=== PATIENT | male | born 1955 | race Caucasian/White ===

== ENCOUNTER 2021-02-21 12:55 | Inpatient (IN) ==
[2021-02-21 14:02] LABS: Basophils # (auto) 0.05 K/uL (0-0.2); Basophils % (auto) 0.5 %; Eosinophils # (auto) 0.15 K/uL (0-0.5); Eosinophils % (auto) 1.6 %; Hematocrit (blood only) 39.1 % (42-52); Hemoglobin 13.3 g/dL (14.0-18.0); Immature Granulocytes # (auto) 0.05 K/uL (0.00-0.02); Immature Granulocytes % (auto) 0.5 %; Lymphocytes # (auto) 1.63 K/uL (1.2-3.4); Lymphocytes % (auto) 16.9 %; Mean Corpuscular Volume 91.1 fL (80-100); Mean Platelet Volume 9.4 fL (7.4-10.4); Monocytes # (auto) 0.78 K/uL (0.11-0.59); Monocytes % (auto) 8.1 %; Neutrophils # (auto) 6.99 K/uL (1.4-6.5); Neutrophils % (auto) 72.4 %; Platelet Count 328 K/uL (130-400); RDW Coefficient of Variation 13.9 % (11.5-14.5); RDW Standard Deviation 45.8 fL (36.4-46.3); Red Blood Count 4.29 M/uL (4.7-6.1); White Blood Count 9.65 K/uL (4.8-10.8)
[2021-02-21 14:26] LABS: Albumin Level 2.4 gm/dl (3.4-5.0); BUN Creatinine Ratio 10.9 (10-20); Calcium 9.1 mg/dl (8.5-10.1); Est GFR (African American) 84.3 ml/min; Est GFR (Non-African American) 72.8 ml/min; Potassium 3.7 mmol/L (3.5-5.1)
[2021-02-21 14:29] LABS: Albumin Globulin Ratio 0.5 (0.9-2); Bilirubin,Total 0.5 mg/dl (0.2-1); Globulin 5.3 gm/dl (2.5-4.0); Total Protein 7.7 gm/dl (6.4-8.2)
--- NOTE | 2021-02-21 15:53 | Ultrasound Report ---
RIGHT LOWER EXTREMITY VENOUS DOPPLER CLINICAL HISTORY: Right lower extremity pain. Evaluate for deep venous thrombus. COMPARISON STUDY: No previous studies for comparison. TECHNIQUE: Sonography of the deep venous system of the right lower extremity was performed. Compress ion and augmentation were evaluated. FINDINGS: Prominent right inguinal lymph nodes measure up to 4.3 x 1.4 x 4.2 cm. The largest node is elongated and contains a fatty hilum. This is benign imaging characteristics. There is stranding with in the right femoral vein. This favors chronic thrombus. Note is also made of deep venous thrombus wi thin the right popliteal, posterior tibial and peroneal veins which is age indeterminate. IMPRESSION: 1. Deep venous thrombus within the right popliteal, posterior tibial and peroneal veins. This thrombu s is age indeterminate. 2. Chronic appearing deep venous thrombus within the right femoral vein. 3. Prominent right groin lymph nodes which are likely benign. ACT 112: Negative or not required by law. Electronically signed by: Ryan Sandoval M.D. 02/21/2021 3:52 PM
[2021-02-21] MEDS ORDERED: SODIUM CHLORIDE 0.9% 1000ML 1,000 ML IV ONE (17:15)
[2021-02-21] MEDS ORDERED: VANCOMYCIN CONSULT ACTIVE PRN ×2 (17:15→22:35)
[2021-02-21] MEDS ORDERED: VANCOMYCIN HCL 2,500 MG in SODIUM CHLORIDE 0.9% 500 ML IV ONE ×2 (17:15→22:45)
[2021-02-21] MEDS ORDERED: cefTRIAXone SODIUM 2,000 MG/70 ML BAG IV STA (17:19)
--- NOTE | 2021-02-21 17:53 | Emergency Department Note ---
History of Present Illness General Chief complaint: Leg Injury/Pain Stated complaint: LEG SWELLING Time Seen by Provider: 02/21/21 14:31 History of Present Illness Maximum Pain Intensity: 0 This patient is a 66-year-old male who presents emergency department with complaints of throbbing pain, redness, swelling in his right leg that started 3 days ago. He denies any injury. The patient notes a history of diabetes. He denies any fever. He has received Tylenol with moderate pain relief. He denies any chest pain or difficulty breathing. No body aches, sweats or chills reported. Home Medications Medication Instructions Recorded Confirmed Type aspirin 325 mg tablet 325 mg PO QAM 12/15/20 02/21/21 History atorvastatin 40 mg tablet 40 mg PO HS 12/15/20 02/21/21 History ciclesonide 160 mcg/actuation 1 puff INHALATION BID 12/15/20 02/21/21 History aerosol inhaler (Alvesco) docusate sodium 100 mg tablet 100 mg PO BID 12/15/20 02/21/21 History glipizide 5 mg tablet 10 mg PO QAM 12/15/20 02/21/21 History guaifenesin 400 mg tablet (Mucosa) 400 mg PO BID 12/15/20 02/21/21 History levalbuterol tartrate 45 2 inh INHALATION QID PRN 12/15/20 02/21/21 History mcg/actuation aerosol inhaler (Xopenex HFA) lisinopril 20 mg tablet 20 mg PO QAM 12/15/20 02/21/21 History metformin 500 mg tablet 500 mg PO QAM 12/15/20 02/21/21 History pantoprazole 40 mg tablet,delayed 40 mg PO QAM 12/15/20 02/21/21 History release pentoxifylline 400 mg 400 mg PO TID 12/15/20 02/21/21 History tablet,extended release triamcinolone acetonide 0.1 % 1 applic TOPICAL BID 12/15/20 02/21/21 History topical cream Allergies Allergy/AdvReac Type Severity Reaction Status Date / Time iodine Allergy Mild hives, sob Verified 12/20/20 10:10 Past Med/Surg History Medical History Acid reflux Asthma Diabetes mellitus, type 2 Hyperlipidemia Hypertension Surgical History History of right inguinal hernia repair History of vein stripping (~1989) right LE Family History Other Family history unknown Social History Smoking Status: Never smoker Preferred Language: Montserratian Statistics Teacher Required: No Beliefs That Will Affect Care: None Current Living Situation: Other Current Living Situation Comment: Incarcerated at [facility] Feels Safe at Home: Yes Assistive Devices: None Review of Systems A total of 10 systems reviewed and were otherwise negative Physical Exam Vital Signs Vital Signs - 24 hr 02/21/21 13:06 02/21/21 16:00 02/21/21 18:00 Temperature 36.8 C Temperature Source Temporal Artery Scan Pulse Rate 90 Pulse Rate [Finger] 75 71 Pulse Rhythm [Finger] Regular Regular Pulse Strength [Finger] Normal Normal Respiratory Rate 16 18 18 Respiratory Effort / Characteristics Non-Labored Non-Labored Respiratory Depth Normal Normal Respiratory Pattern Regular Blood Pressure 145/81 H Blood Pressure [Right Arm] 177/99 H 141/107 H Blood Pressure Mean 102 Blood Pressure Mean [Right Arm] 125 118 Blood Pressure Position [Right Arm] Lying Sitting Pulse Oximetry 97 98 98 Oxygen Delivery Method Room Air Room Air Sepsis Recent Fever Within 48 Hours No Sepsis New/Unexplained Change in Mental Status No Sepsis Action Taken by Nursing No Action Required See below Constitutional WD/WN, vitals as above Eyes EOM intact bilaterally ENMT Oral mucosa slightly dry Neck trachea midline Respiratory normal respiratory effort, lungs clear to auscultation Cardiovascular RRR, no murmur, no edema Gastrointestinal (Abdomen) normal bowel sounds, soft, nontender, no hepatosplenomegaly Musculoskeletal RLE: Significant erythema, warmth and edema noted to the right lower extremity especially distal to the knee. There is some erythematous streaking noted over the medial aspect of the right thigh. DP pulse in the right foot +2. Dorsiflexion and plantar flexion are intact in the right foot. Skin no rashes, warm and dry Several, small, approximately 0.5 cm ulcerations noted to the right lower extremity. Mild oozing of pus noted. Neurologic Alert and oriented x3. No focal motor deficits. Psychiatric Acting appropriately Course Course Patient was seen and examined Vital signs including blood pressure were reviewed medications list was verified with patient Labs were obtained, and a saline lock was established The patient declined pain medication The case was discussed with my supervising physician He was ordered ceftriaxone 2 g IV in addition to fluids I spoke with the hospitalist service, who kindly agreed to evaluate patient for likely inpatient treatment Consultations Consultation #1: Hospitalist service Administered Medications Aspirin (Aspirin 81 Mg Ectab) 81 mg PO QAM [facility] Stop: 03/24/21 08:59 Last Admin: 02/22/21 08:36 Dose: 81 mg Documented by: [id number] Atorvastatin Calcium (Atorvastatin 40 Mg Tab) 40 mg PO HS [facility] Stop: 03/23/21 21:29 Last Admin: 02/21/21 22:35 Dose: 40 mg Documented by: [id number] Docusate Sodium (Docusate Sodium 100 Mg Cap) 100 mg PO BID [facility] Stop: 03/23/21 21:29 Last Admin: 02/22/21 07:57 Dose: 100 mg Documented by: [id number] Admin: 02/21/21 22:35 Dose: 100 mg Documented by: [id number] Enoxaparin Sodium (Enoxaparin Inj 120 Mg/0.8 Ml Syr) 120 mg SQ Q12 [facility] Stop: 03/24/21 07:59 Last Admin: 02/22/21 07:58 Dose: 120 mg Documented by: [id number] Fluticasone Furoate (Fluticasone Furoate 200mcg 14 Puffs/Inhaler) 1 puffs INH DAILY [facility]; Protocol Stop: 03/24/21 08:59 Last Admin: 02/22/21 07:58 Dose: 1 puffs Documented by: [id number] Guaifenesin (Guaifenesin 200 Mg Tab) 400 mg PO BID [facility] Stop: 03/23/21 21:29 Last Admin: 02/22/21 07:57 Dose: 400 mg Documented by: [id number] Admin: 02/21/21 22:35 Dose: 400 mg Documented by: [id number] Vancomycin HCl 1,250 mg/ (Sodium Chloride) 275 mls @ 200 mls/hr IV Q12H [facility] Stop: 03/01/21 07:59 Last Infusion: 02/22/21 09:20 Dose: 0 mls/hr Documented by: [id number] Admin: 02/22/21 07:18 Dose: 200 mls/hr Documented by: [id number] Insulin Aspart (Insulin Aspart Per Unit) 0 units SC ACHS [facility] Stop: 03/24/21 07:29 Last Admin: 02/22/21 09:31 Dose: 5 units Documented by: [id number] Cosigned by: [id number] Insulin Glargine (Insulin Glargine Solostar 100 Units/Ml 3 Ml Pen) 10 units SC BID [facility] Stop: 03/23/21 23:44 Last Admin: 02/22/21 08:05 Dose: 10 units Documented by: [id number] Cosigned by: [id number] Admin: 02/22/21 00:52 Dose: 10 units Documented by: [id number] Cosigned by: [id number] Lisinopril (Lisinopril 20 Mg Tab) 20 mg PO QAM [facility] Stop: 03/24/21 08:59 Last Admin: 02/22/21 07:57 Dose: 20 mg Documented by: [id number] Pantoprazole Sodium (Pantoprazole 40 Mg Tab) 40 mg PO QAM [facility] Stop: 03/24/21 08:59 Last Admin: 02/22/21 07:57 Dose: 40 mg Documented by: [id number] Pentoxifylline (Pentoxifylline 400mg Ext Rel Tab) 400 mg PO TID [facility] Stop: 03/23/21 21:29 Last Admin: 02/22/21 07:56 Dose: 400 mg Documented by: [id number] Admin: 02/21/21 22:35 Dose: 400 mg Documented by: [id number] Discontinued Medications Enoxaparin Sodium (Enoxaparin Inj 120 Mg/0.8 Ml Syr) 120 mg SQ 1915 ONE Stop: 02/21/21 19:16 Last Admin: 02/21/21 19:56 Dose: 120 mg Documented by: [id number] Sodium Chloride (Nss 1000ml) 1,000 mls @ 999 mls/hr IV .Q1H1M ONE Stop: 02/21/21 18:15 Last Infusion: 02/21/21 21:03 Dose: 0 mls/hr Documented by: [id number] Admin: 02/21/21 18:01 Dose: 999 mls/hr Documented by: [id number] Vancomycin HCl 2,500 mg/ (Sodium Chloride) 550 mls @ 200 mls/hr IV NOW ONE Stop: 02/21/21 19:59 Last Admin: 02/21/21 19:00 Dose: Not Given Documented by: [id number] Ceftriaxone Sodium (Rocephin) 2,000 mg in 70 mls @ 140 mls/hr IV NOW STA Stop: 02/21/21 17:48 Last Infusion: 02/21/21 18:32 Dose: 140 mls/hr Documented by: [id number] Admin: 02/21/21 18:02 Dose: 140 mls/hr Documented by: [id number] Vancomycin HCl 2,500 mg/ (Sodium Chloride) 550 mls @ 200 mls/hr IV NOW ONE Stop: 02/22/21 01:29 Last Infusion: 02/22/21 02:02 Dose: 0 mls/hr Documented by: [id number] Admin: 02/21/21 23:07 Dose: 200 mls/hr Documented by: [id number] Insulin Aspart (Insulin Aspart Per Unit) 0 units SC ONE ONE Stop: 02/21/21 23:38 Last Admin: 02/22/21 00:51 Dose: 1 units Documented by: [id number] Cosigned by: [id number] Miscellaneous Information (Consult Pharmacy) 1 ea N/A NOW STA Stop: 02/21/21 18:51 Last Admin: 02/21/21 19:41 Dose: Not Given Documented by: [id number] Medical Decision Making Medical Records Attestation: I reviewed the patient's medical records. Home Medications Current Medication List: was personally reviewed by me Laboratory Data Attestation: I reviewed the patient's lab results. Result diagrams: 02/22/21 06:38 02/22/21 06:38 Lab Results 02/21/21 02/21/21 02/21/21 Range/Units 13:50 13:50 17:39 WBC 9.65 (4.8-10.8) K/uL RBC 4.29 L (4.7-6.1) M/uL Hgb 13.3 L (14.0-18.0) g/dL Hct 39.1 L (42-52) % MCV 91.1 (80-100) fL MCH 31.0 (25-34) pg MCHC 34.0 (32-36) g/dL RDW Std Deviation 45.8 (36.4-46.3) fL RDW Coeff of John 13.9 (11.5-14.5) % Plt Count 328 (130-400) K/uL MPV 9.4 (7.4-10.4) fL Immature Gran % (Auto) 0.5 % Neut % (Auto) 72.4 % Lymph % (Auto) 16.9 % [place] % (Auto) 8.1 % Eos % (Auto) 1.6 % Baso % (Auto) 0.5 % Neut # (Auto) 6.99 H (1.4-6.5) K/uL Lymph # (Auto) 1.63 (1.2-3.4) K/uL [place] # (Auto) 0.78 H (0.11-0.59) K/uL Eos # (Auto) 0.15 (0-0.5) K/uL Baso # (Auto) 0.05 (0-0.2) K/uL Immature Gran # (Auto) 0.05 H (0.00-0.02) K/uL PT (9.0-12.0) Seconds INR (0.9-1.1) APTT (21.0-31.0) Seconds PTT Ratio Sodium 134 L (136-145) mmol/L Potassium 3.7 (3.5-5.1) mmol/L Chloride 102 (98-107) mmol/L Carbon Dioxide 23 (21-32) mmol/L Anion Gap 9.0 (3-11) BUN 12 (7-18) mg/dl Creatinine 1.06 (0.6-1.4) mg/dl Est Cr Clr Drug Dosing 95.0 ml/min Est GFR ( Amer) 84.3 ml/min Est GFR (Non-Af Amer) 72.8 ml/min BUN/Creatinine Ratio 10.9 (10-20) Glucose 254 H (70-99) mg/dl Lactate 1.6 (0.4-2.0) mmol/L Calcium 9.1 (8.5-10.1) mg/dl Total Bilirubin 0.5 (0.2-1) mg/dl AST 130 H (15-37) U/L ALT 10 L (12-78) Alkaline Phosphatase 101 (45-117) U/L Total Protein 7.7 (6.4-8.2) gm/dl Albumin 2.4 L (3.4-5.0) gm/dl Globulin 5.3 H (2.5-4.0) gm/dl Albumin/Globulin Ratio 0.5 L (0.9-2) Urine Color Urine Appearance (Clear) Urine pH (4.5-7.5) Ur Specific [place] (1.000-1.030) Urine Protein (Negative) Urine Glucose (UA) (Negative) Urine Ketones (Negative) Urine Blood (Negative) Urine Nitrite (Negative) Urine Bilirubin (Negative) Urine Urobilinogen (Negative) Ur Leukocyte Esterase (Negative) Urine WBC (Auto) (0-5) /hpf Urine RBC (Auto) (0-4) /hpf U Hyaline Cast (Auto) (0-5) /lpf U Epithel Cells (Auto) (0-5) /lpf Urine Bacteria (Auto) (Negative) SARS-CoV-2, RNA, NAAT (NEGATIVE) 02/21/21 02/21/21 02/21/21 Range/Units 17:39 17:53 17:59 WBC (4.8-10.8) K/uL RBC (4.7-6.1) M/uL Hgb (14.0-18.0) g/dL Hct (42-52) % MCV (80-100) fL MCH (25-34) pg MCHC (32-36) g/dL RDW Std Deviation (36.4-46.3) fL RDW Coeff of John (11.5-14.5) % Plt Count (130-400) K/uL MPV (7.4-10.4) fL Immature Gran % (Auto) % Neut % (Auto) % Lymph % (Auto) % [place] % (Auto) % Eos % (Auto) % Baso % (Auto) % Neut # (Auto) (1.4-6.5) K/uL Lymph # (Auto) (1.2-3.4) K/uL [place] # (Auto) (0.11-0.59) K/uL Eos # (Auto) (0-0.5) K/uL Baso # (Auto) (0-0.2) K/uL Immature Gran # (Auto) (0.00-0.02) K/uL PT 10.2 (9.0-12.0) Seconds INR 1.0 (0.9-1.1) APTT 27.8 (21.0-31.0) Seconds PTT Ratio 1.1 Sodium (136-145) mmol/L Potassium (3.5-5.1) mmol/L Chloride (98-107) mmol/L Carbon Dioxide (21-32) mmol/L Anion Gap (3-11) BUN (7-18) mg/dl Creatinine (0.6-1.4) mg/dl Est Cr Clr Drug Dosing ml/min Est GFR ( Amer) ml/min Est GFR (Non-Af Amer) ml/min BUN/Creatinine Ratio (10-20) Glucose (70-99) mg/dl Lactate (0.4-2.0) mmol/L Calcium (8.5-10.1) mg/dl Total Bilirubin (0.2-1) mg/dl AST (15-37) U/L ALT (12-78) Alkaline Phosphatase (45-117) U/L Total Protein (6.4-8.2) gm/dl Albumin (3.4-5.0) gm/dl Globulin (2.5-4.0) gm/dl Albumin/Globulin Ratio (0.9-2) Urine Color Yellow Urine Appearance Clear (Clear) Urine pH 6.0 (4.5-7.5) Ur Specific [place] 1.021 (1.000-1.030) Urine Protein 1+ H (Negative) Urine Glucose (UA) 3+ H (Negative) Urine Ketones Negative (Negative) Urine Blood 1+ H (Negative) Urine Nitrite Negative (Negative) Urine Bilirubin Negative (Negative) Urine Urobilinogen Negative (Negative) Ur Leukocyte Esterase Negative (Negative) Urine WBC (Auto) 1-5 (0-5) /hpf Urine RBC (Auto) 5-10 H (0-4) /hpf U Hyaline Cast (Auto) 1-5 (0-5) /lpf U Epithel Cells (Auto) 10-20 H (0-5) /lpf Urine Bacteria (Auto) Negative (Negative) SARS-CoV-2, RNA, NAAT NEGATIVE (NEGATIVE) Imaging Data Attestation: I personally reviewed and interpreted this imaging study as follows: Radiologist's Impression: Venous Doppler Study 02/21/21 14:31 RIGHT LOWER EXTREMITY VENOUS DOPPLER CLINICAL HISTORY: Right lower extremity pain. Evaluate for deep venous thrombus. COMPARISON STUDY: No previous studies for comparison. TECHNIQUE: Sonography of the deep venous system of the right lower extremity was performed. Compression and augmentation were evaluated. FINDINGS: Prominent right inguinal lymph nodes measure up to 4.3 x 1.4 x 4.2 cm. The largest node is elongated and contains a fatty hilum. This is benign imaging characteristics. There is stranding within the right femoral vein. This favors chronic thrombus. Note is also made of deep venous thrombus within the right popliteal, posterior tibial and peroneal veins which is age indeterminate. IMPRESSION: 1. Deep venous thrombus within the right popliteal, posterior tibial and peroneal veins. This thrombus is age indeterminate. 2. Chronic appearing deep venous thrombus within the right femoral vein. 3. Prominent right groin lymph nodes which are likely benign. ACT 112: Negative or not required by law. Electronically signed by: Ryan Sandoval M.D. 02/21/2021 3:52 PM Blood Pressure Blood Pressure Findings: Elevated blood pressure Blood Pressure Disposition: further management by hospitalist BAKARI Narrative Differential diagnosis: Cellulitis, DVT, sepsis, osteomyelitis, among others were considered This patient is a 66-year-old incarcerated male who presents the emergency department with complaints of throbbing pain, redness and swelling of the right lower extremity with no known injury. On exam, he was hypertensive. He was afebrile. He was nontoxic in appearance. His right lower extremity is extremely erythematous, warm to touch with several small ulcerations. A work-up was performed. There is no leukocytosis. AST was elevated. Other LFTs were unremarkable. An ultrasound was performed and consistent with a fairly large DVT. The patient's oxygen is stable on room air. I do not suspect PE. In addition, I believe the patient has an overlying cellulitis. I do not feel comfortable sending this patient back to [facility]. He was started on antibiotics, and likely be admitted for further treatment. Impression & Plan DVT (deep venous thrombosis), Cellulitis of right lower extremity, Diabetes mellitus Discharge Plan Visit Data Chief Complaint: Leg Injury/Pain Stated Complaint: LEG SWELLING ED Midlevel Provider: Sheri David Discharge Problem: DVT (deep venous thrombosis), Cellulitis of right lower extremity, Diabetes mellitus Patient Disposition: Admitted As Inpatient Discharge Instructions Interventions: ED Discharge Assessment Last Done: 02/21/21 21:15
--- NOTE | 2021-02-21 17:57 | History & Physical Report ---
Date of Service February 21, 2021 Assessment & Plan (1) Deep vein thrombosis: Plan: Start Lovenox 1mg/kg BID Will need to check with [facility] prior to discharge regarding longer term anticoagulation choice (2) Cellulitis of right lower extremity: Plan: Agree with continuing vancomycin and ceftriaxone Follow up blood and wound cultures Wound care to assess ulcers Continue pentoxifylline presumable takes for venous ulcers (3) Hypertension: Plan: Continue lisinopril 20mg PO daily (4) Acid reflux: Plan: Continue pantoprazole 40mg PO daily (5) Diabetes mellitus, type 2: Plan: HbA1C with AM labs Stop metformin and glipizide during inaptient stay Insulin requirement based on weight. Start Lantus 10 units BID Novolog: Goal BSG Range: Low 110 mg/dL, High 140 mg/dL Correction Factor: 35 mg/dL/unit Carbohydrate ratio = 12 g/unit BSGs ACHS if eating, q6h if npo Plan: VTE Prophylaxis - Lovenox Diet - T2DM Disposition - admit to med/surg Admission and Anticipated Discharge Date Admission Date: February 21, 2021 History of Present Illness Chief Complaint: Right leg swelling and pain Primary Care Provider: [facility] Jose Alberto Suarez is a 66 year old male who presents to the ER with right leg pain and swelling. He reports a longstanding history of recurrent venous ulcers in this leg with prior vein stripping surgery. He notes he needs a compression stocking but has not been able to use this at [facility]. Over the last week he has noticed increased leg swelling and pain especially below the knee. Over the last 2-3 days he has noticed increased leg erythema starting from his toes up to his knees. He denies any fever or chills. Allergies Allergy/AdvReac Type Severity Reaction Status Date / Time iodine Allergy Mild hives, sob Verified 12/20/20 10:10 Home Medications Medication Instructions Recorded Confirmed Type aspirin 325 mg tablet 325 mg PO QAM 12/15/20 02/21/21 History atorvastatin 40 mg tablet 40 mg PO HS 12/15/20 02/21/21 History ciclesonide 160 mcg/actuation 1 puff INHALATION BID 12/15/20 02/21/21 History aerosol inhaler (Alvesco) docusate sodium 100 mg tablet 100 mg PO BID 12/15/20 02/21/21 History glipizide 5 mg tablet 10 mg PO QAM 12/15/20 02/21/21 History guaifenesin 400 mg tablet (Mucosa) 400 mg PO BID 12/15/20 02/21/21 History levalbuterol tartrate 45 2 inh INHALATION QID PRN 12/15/20 02/21/21 History mcg/actuation aerosol inhaler (Xopenex HFA) lisinopril 20 mg tablet 20 mg PO QAM 12/15/20 02/21/21 History metformin 500 mg tablet 500 mg PO QAM 12/15/20 02/21/21 History pantoprazole 40 mg tablet,delayed 40 mg PO QAM 12/15/20 02/21/21 History release pentoxifylline 400 mg 400 mg PO TID 12/15/20 02/21/21 History tablet,extended release triamcinolone acetonide 0.1 % 1 applic TOPICAL BID 12/15/20 02/21/21 History topical cream Past Med/Surg History Medical History (Updated 02/21/21 @ 18:04 by Sher Morales MD) Acid reflux Asthma Diabetes mellitus, type 2 Hyperlipidemia Hypertension Surgical History History of right inguinal hernia repair History of vein stripping (~1989) right LE Family History Other Family history unknown Social History Smoking Status: Never smoker Preferred Language: Palauan Parimutuel Ticket 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 Required: No Beliefs That Will Affect Care: None Current Living Situation: Other Current Living Situation Comment: Incarcerated at [facility] Feels Safe at Home: Yes Review of Systems Review of Systems: All systems reviewed & are unremarkable except as noted in HPI & below Physical Exam Constitutional: WD/WN, vitals as above ENMT: external ear and nose normal, oropharynx normal Neck: trachea midline Respiratory: normal respiratory effort, lungs clear to auscultation Cardiovascular: Rate/Rhythm: regular rate and regular rhythm Vessels: dorsalis pedis pulses present (right) Extremities: normal capillary refill (right toes), + calf tenderness (right) and + pedal edema (Right sided only) Gastrointestinal (Abdomen): normal bowel sounds, soft, nontender, no hepatosplenomegaly Musculoskeletal: no cyanosis or clubbing, extremities motor strength 5/5 Skin: + ulcer (venous appearing ulcer, quarter sized on medial RLE, purulent) and + erythema (bright swelling and warmth from right toes to knee) Neurologic: moves all extremities and awake; no focal motor deficits and not confused Motor/Sensory: no sensory deficit Psychiatric: A+Ox3, euthymic affect Genitourinary: no CVA tenderness Results & Data Results & Data ([facility]) Vital Signs (Past 12 Hours) Vital Signs Temp Pulse Pulse Resp BP BP Pulse Ox 02/21/21 16:00 75 18 177/99 H 98 02/21/21 13:06 36.8 C 90 16 145/81 H 97 Laboratory Results Abnormal lab results 02/21/21 02/21/21 Range/Units 13:50 13:50 RBC 4.29 L (4.7-6.1) M/uL Hgb 13.3 L (14.0-18.0) g/dL Hct 39.1 L (42-52) % Neut # (Auto) 6.99 H (1.4-6.5) K/uL [place] # (Auto) 0.78 H (0.11-0.59) K/uL Immature Gran # (Auto) 0.05 H (0.00-0.02) K/uL Sodium 134 L (136-145) mmol/L Glucose 254 H (70-99) mg/dl AST 130 H (15-37) U/L ALT 10 L (12-78) Albumin 2.4 L (3.4-5.0) gm/dl Globulin 5.3 H (2.5-4.0) gm/dl Albumin/Globulin Ratio 0.5 L (0.9-2) Diagnostic Findings RIGHT LOWER EXTREMITY VENOUS DOPPLER CLINICAL HISTORY: Right lower extremity pain. Evaluate for deep venous thrombus. COMPARISON STUDY: No previous studies for comparison. TECHNIQUE: Sonography of the deep venous system of the right lower extremity was performed. Compression and augmentation were evaluated. FINDINGS: Prominent right inguinal lymph nodes measure up to 4.3 x 1.4 x 4.2 cm. The largest node is elongated and contains a fatty hilum. This is benign imaging characteristics. There is stranding within the right femoral vein. This favors chronic thrombus. Note is also made of deep venous thrombus within the right popliteal, posterior tibial and peroneal veins which is age indeterminate. IMPRESSION: 1. Deep venous thrombus within the right popliteal, posterior tibial and peroneal veins. This thrombus is age indeterminate. 2. Chronic appearing deep venous thrombus within the right femoral vein. 3. Prominent right groin lymph nodes which are likely benign. Medications Administered ER Medications Given: NSS 1L bolus Vancomycin 2500mg IV Ceftriaxone 2000mg IV Code Status & VTE Plan Code Status Full VTE Prophylaxis Plan VTE Prophylaxis will be ordered: Yes PG Care Time/CCT Total # of Minutes Spent Total Time Spent with Patient: Total time spent is greater than 50% in coordination of care (as documented) at patient's floor/unit and/or counseling patient: Coding Level of Care Code 84638 Initial Inpt Care Lvl 2 Diagnoses Deep vein thrombosis I82.409 Cellulitis of right lower extremity L03.115 Hypertension I10 Acid reflux K21.9 Diabetes mellitus, type 2 E11.9
[2021-02-21 18:03] LABS: Appearance Urine Clear (Clear); Bacteria Urine Automated Negative (Negative); Bilirubin Urine Negative (Negative); Blood Urine 1+ (Negative); Color Urine Yellow; Glucose Urine UA 3+ (Negative); Ketones Urine Negative (Negative); Leukocyte Esterase Urine Negative (Negative); Nitrite Urine Negative (Negative); Protein Urine 1+ (Negative); Specific Gravity Urine 1.021 (1.000-1.030); Urobilinogen Urine Negative (Negative)
[2021-02-21 18:25] LABS: Partial Thromboplastin Ratio 1.1; Partial Thromboplastin Time 27.8 Seconds (21.0-31.0); Prothrombin Time 10.2 Seconds (9.0-12.0)
[2021-02-21] MEDS ORDERED: CONSULT PHARMACY STA (18:50)
[2021-02-21] MEDS ORDERED: ENOXAPARIN INJ 120 MG/0.8 ML SYR SQ ONE (19:15)
[2021-02-21] MEDS ORDERED: ONDANSETRON INJ 2 MG/ML 2 ML VIAL IV PRN (21:14)
[2021-02-21] MEDS ORDERED: POLYETHYLENE (MIRALAX) 17 GM PACK PO PRN (21:14)
[2021-02-21] MEDS: DOCUSATE SODIUM 100 MG CAP PO SCH (22:35)
[2021-02-21] MEDS: ATORVASTATIN 40 MG TAB PO SCH (22:35)
[2021-02-21] MEDS: PENTOXIFYLLINE 400MG EXT REL TAB PO SCH (22:35)
[2021-02-21] MEDS: guaiFENesin 200 MG TAB PO SCH (22:35)
[2021-02-21] MEDS ORDERED: CARBOHYDRATES FOR HYPOGLYCEMIA PO PRN (23:34)
[2021-02-21] MEDS ORDERED: GLUCAGON FOR INJ 1 MG VIAL SQ PRN (23:34)
[2021-02-21] MEDS ORDERED: DEXTROSE 50% 50 ML SYRINGE IV PRN (23:34)
[2021-02-21] MEDS ORDERED: GLUCOSE 40% GEL 15 GM TUBE PO PRN (23:34)
[2021-02-21] MEDS ORDERED: GLUCOSE 10 TABS/TUBE PO PRN (23:34)
[2021-02-21] MEDS ORDERED: INSULIN ASPART PER UNIT SC ONE (23:37)
[2021-02-22] MEDS: INSULIN GLARGINE SOLOSTAR 100 UNITS/ML 3 ML PEN SC SCH ×3 (00:52→22:06)
[2021-02-22 06:52] LABS: Basophils # (auto) 0.04 K/uL (0-0.2); Basophils % (auto) 0.4 %; Eosinophils # (auto) 0.25 K/uL (0-0.5); Eosinophils % (auto) 2.7 %; Hematocrit (blood only) 36.5 % (42-52); Hemoglobin 12.1 g/dL (14.0-18.0); Immature Granulocytes # (auto) 0.04 K/uL (0.00-0.02); Immature Granulocytes % (auto) 0.4 %; Lymphocytes # (auto) 2.61 K/uL (1.2-3.4); Lymphocytes % (auto) 28.6 %; Mean Corpuscular Hemoglobin 30.9 pg (25-34); Mean Corpuscular Hgb Conc 33.2 g/dL (32-36); Mean Corpuscular Volume 93.1 fL (80-100); Mean Platelet Volume 9.1 fL (7.4-10.4); Monocytes # (auto) 0.51 K/uL (0.11-0.59); Monocytes % (auto) 5.6 %; Neutrophils # (auto) 5.69 K/uL (1.4-6.5); Neutrophils % (auto) 62.3 %; Platelet Count 339 K/uL (130-400); RDW Coefficient of Variation 14.1 % (11.5-14.5); RDW Standard Deviation 47.9 fL (36.4-46.3); Red Blood Count 3.92 M/uL (4.7-6.1); White Blood Count 9.14 K/uL (4.8-10.8)
[2021-02-22] MEDS: VANCOMYCIN HCL 1,250 MG in SODIUM CHLORIDE 0.9% 250 ML IV SCH ×2 (07:18→20:52)
[2021-02-22 07:36] LABS: BUN Creatinine Ratio 10.3 (10-20); C Reactive Protein 11.6 mg/dl (0-0.29); Calcium 8.9 mg/dl (8.5-10.1); Creatinine Clr Calc Pharmacy 111.9 ml/min; Est GFR (African American) 102.8 ml/min; Est GFR (Non-African American) 88.7 ml/min; Potassium 3.8 mmol/L (3.5-5.1)
[2021-02-22] MEDS: PENTOXIFYLLINE 400MG EXT REL TAB PO SCH ×3 (07:56→20:52)
[2021-02-22] MEDS: PANTOprazole 40 MG TAB PO SCH (07:57)
[2021-02-22] MEDS: DOCUSATE SODIUM 100 MG CAP PO SCH ×2 (07:57→20:52)
[2021-02-22] MEDS: lisinopril 20 MG TAB PO SCH (07:57)
[2021-02-22] MEDS: guaiFENesin 200 MG TAB PO SCH ×2 (07:57→20:52)
[2021-02-22 07:58] LABS: Estimated Average Glucose 229 mg/dl; Hemoglobin A1C 9.6 % (4.5-5.6)
[2021-02-22] MEDS: FLUTICASONE FUROATE 200MCG 14 PUFFS/INHALER INH SCH (07:58)
[2021-02-22] MEDS: ENOXAPARIN INJ 120 MG/0.8 ML SYR SQ SCH ×2 (07:58→20:53)
[2021-02-22 08:05] LABS: Albumin Level 2.1 gm/dl (3.4-5.0); Bilirubin Direct 0.2 mg/dl (0-0.2); Bilirubin,Total 0.6 mg/dl (0.2-1); Total Protein 7.2 gm/dl (6.4-8.2)
[2021-02-22] MEDS: ASPIRIN 81 MG ECTAB PO SCH (08:36)
[2021-02-22] MEDS ORDERED: ASPIRIN 325 MG ECTAB PO SCH (09:00)
[2021-02-22] MEDS: INSULIN ASPART PER UNIT SC SCH ×4 (09:31→22:04)
--- NOTE | 2021-02-22 13:51 | Pharmacy Report ---
Pharmacy Vanc AUC Short Note - Date of Service February 22, 2021 - Assessment & Plan Assessment * 66 year old M receiving ceftriaxone and vancomycin for treatment of RLE cellulitis * PMH: incarceration, diabetes, recurrent venous ulcers in RLE * Pertinent microbiologic data includes: Leg wound culture growing Group G Strep, Staph species Vancomycin * AUC/JOSE ROBERTO is the preferred PK/PD target for vancomycin * AUC guided dosing is effective and associated with decreased risk of nephrotoxicity compared to traditional trough targets * Patient was loaded in the ED. Ongoing dose via AUC estimate * Trough prior to 4th overall dose Plan * Vancomycin 2500 IV x1 then 1250 mg IV q12h * Trough 02/23 @ 0730 Pharmacy will continue to follow and will adjust dose/frequency as necessary. Thank you.
--- NOTE | 2021-02-22 16:39 | Hospitalist Progress Note ---
Date of Service February 22, 2021 Assessment & Plan (1) Deep vein thrombosis: Plan: Doppler on 02/21 showed "Deep venous thrombus within the right popliteal, posterior tibial and peroneal veins." - Continue Lovenox 1mg/kg BID - Started warfarin -> Will need to discuss with [facility] if Lovenox is available. (2) Cellulitis of right lower extremity: Plan: Not entirely clear if it's cellulitis vs. swelling and redness from his DVT. - Continue vancomycin - Follow up blood and wound cultures - Wound care to assess ulcers - Continue pentoxifylline presumable takes for venous ulcers (3) Hypertension: Plan: BP today is 120/75. - Continue lisinopril 20mg PO daily (4) Acid reflux: Plan: - Continue pantoprazole 40mg PO daily (5) Diabetes mellitus, type 2: Plan: A1c this admission was 9.6%. - Hold metformin and glipizide - Sliding scale insulin (6) Peripheral vascular disease: Plan: Long-standing history of ulcers on the right leg. Look like last evaluations in our system were all from 2013, and meds haven't changed in quite some time. - Consult vascular surgery Admission and Anticipated Discharge Date Admission Date: February 21, 2021 Subjective Doing well today. Reports no fevers/chills, chest pain, shortness of breath, abdominal pain, nausea, or vomiting. Physical Exam Constitutional: WD/WN, vitals as above Eyes: EOM intact bilaterally; no conjunctival abnormality ENMT: external ear and nose normal, oropharynx normal Neck: trachea midline, no thyromegaly normal visual inspection Respiratory: normal respiratory effort, lungs clear to auscultation no respiratory distress Cardiovascular: RRR, no murmur, no edema Gastrointestinal (Abdomen): Inspection/Auscultation: abdomen normal to inspection; abdomen not distended Musculoskeletal: no cyanosis or clubbing, extremities motor strength 5/5 Skin: no rashes, warm and dry Neurologic: moves all extremities and awake Psychiatric: Orientation: alert, oriented to person and cooperative Results & Data Results & Data ([facility]) Vital Signs (Past 12 Hours) Vital Signs Temp Pulse Resp BP Pulse Ox 02/22/21 16:11 37.1 C 66 15 120/73 96 02/22/21 14:26 59 L 20 138/77 93 12/22/21 11:21 63 20 120/73 93 02/22/21 08:21 61 20 130/70 94 02/22/21 08:20 63 20 130/70 94 02/22/21 05:34 63 18 144/75 H 95 PG Care Time/CCT Total # of Minutes Spent Total Time Spent with Patient: Total time spent is greater than 50% in coordination of care (as documented) at patient's floor/unit and/or counseling patient: Coding Level of Care Code 35644 Subseq Hosp Care Lvl 3 Diagnoses Deep vein thrombosis I82.409 Cellulitis of right lower extremity L03.115 Hypertension I10 Acid reflux K21.9 Diabetes mellitus, type 2 E11.9 Peripheral vascular disease I73.9
[2021-02-22] MEDS: cefTRIAXone SODIUM 2,000 MG in DEXTROSE 5% 50 ML IV SCH (17:36)
[2021-02-22] MEDS: WARFARIN SOD 7.5 MG TAB PO SCH (17:50)
[2021-02-22] MEDS: ATORVASTATIN 40 MG TAB PO SCH (20:52)
[2021-02-23] MEDS ORDERED: VANCOMYCIN TROUGH ONE (07:30)
[2021-02-23 08:49] LABS: Hemoglobin 12.5 g/dL (14.0-18.0); Mean Corpuscular Hemoglobin 31.1 pg (25-34); Mean Corpuscular Hgb Conc 32.9 g/dL (32-36); Mean Corpuscular Volume 94.5 fL (80-100); Mean Platelet Volume 9.1 fL (7.4-10.4); Platelet Count 381 K/uL (130-400); RDW Coefficient of Variation 14.2 % (11.5-14.5); Red Blood Count 4.02 M/uL (4.7-6.1); White Blood Count 7.82 K/uL (4.8-10.8)
[2021-02-23] MEDS: lisinopril 20 MG TAB PO SCH (08:53)
[2021-02-23] MEDS: ASPIRIN 81 MG ECTAB PO SCH (08:53)
[2021-02-23] MEDS: PANTOprazole 40 MG TAB PO SCH (08:53)
[2021-02-23] MEDS: PENTOXIFYLLINE 400MG EXT REL TAB PO SCH ×3 (08:53→21:35)
[2021-02-23] MEDS: guaiFENesin 200 MG TAB PO SCH ×2 (08:53→21:35)
[2021-02-23] MEDS: DOCUSATE SODIUM 100 MG CAP PO SCH ×2 (08:53→21:47)
[2021-02-23] MEDS: ENOXAPARIN INJ 120 MG/0.8 ML SYR SQ SCH ×2 (08:54→21:35)
[2021-02-23] MEDS: INSULIN GLARGINE SOLOSTAR 100 UNITS/ML 3 ML PEN SC SCH ×2 (08:58→21:48)
[2021-02-23] MEDS: INSULIN ASPART PER UNIT SC SCH ×4 (08:58→21:47)
[2021-02-23 09:27] LABS: BUN Creatinine Ratio 10.4 (10-20); Calcium 8.9 mg/dl (8.5-10.1); Creatinine Clr Calc Pharmacy 113.2 ml/min; Est GFR (African American) 103.3 ml/min; Est GFR (Non-African American) 89.1 ml/min
[2021-02-23] MEDS: VANCOMYCIN HCL 1,250 MG in SODIUM CHLORIDE 0.9% 250 ML IV SCH (09:28)
--- NOTE | 2021-02-23 10:00 | Pharmacy Report ---
Pharmacy Vanc AUC Short Note - Date of Service February 23, 2021 - Assessment & Plan Assessment 66 year old M receiving vancomycin/Rocephin for treatment of cellulitis. Pertinent microbiologic data includes: leg culture growing Group G strep + Staph species. Day # 3 of antimicrobial therapy. Plan Vancomycin * AUC/JOSE ROBERTO is the preferred PK/PD target for vancomycin * AUC guided dosing is effective and associated with decreased risk of nephrotoxicity compared to traditional trough targets * Trough level of 11.7 mcg/mL is predicted to achieve target AUC/JOSE ROBERTO of 400-600 mg/L.hr and may be associated with a 9 % risk of nephrotoxicity * Change to 1500 mg IV every 12 hours because with vancomycin 1250 mg IV q12 the projected AUC is 430 mg/L.hr. Increase dose to reach projected AUC of 513 mg/L.hr * Trough to be ordered if vancomycin continued beyond additional 48 hours Pharmacy will continue to follow and will adjust dose/frequency as necessary. Thank you.
[2021-02-23] MEDS: FLUTICASONE FUROATE 200MCG 14 PUFFS/INHALER INH SCH (11:37)
[2021-02-23] MEDS: cefTRIAXone SODIUM 2,000 MG in DEXTROSE 5% 50 ML IV SCH (16:45)
[2021-02-23] MEDS: WARFARIN SOD 7.5 MG TAB PO SCH (16:45)
[2021-02-23] MEDS: ACETAMINOPHEN 325 MG TAB PO PRN ×2 (16:53→21:47)
--- NOTE | 2021-02-23 17:26 | Hospitalist Progress Note ---
Date of Service February 23, 2021 Assessment & Plan (1) Deep vein thrombosis: Plan: Doppler on 02/21 showed "Deep venous thrombus within the right popliteal, posterior tibial and peroneal veins." - Continue Lovenox 1mg/kg BID - Started warfarin -> CM confirmed with [facility] that Lovenox is available, so this will not be an impediment to discharge. (2) Cellulitis of right lower extremity: Plan: Not entirely clear if it's cellulitis vs. swelling and redness from his DVT. - Continue vancomycin - Follow up blood and wound cultures -> Wound culture growing Group B Strep and Staph spc. - Wound care to assess ulcers - Continue pentoxifylline presumable takes for venous ulcers (3) Peripheral vascular disease: Plan: Long-standing history of ulcers on the right leg. Look like last evaluations in our system were all from 2013, and meds haven't changed in quite some time. - Consult vascular surgery -> Consult was put in to Dr. Sena. I believe he saw the patient, but note is not yet in. Reported to me that he would request additional ultrasounds of the leg. (4) Hypertension: Plan: BP today is 135/70. - Continue lisinopril 20mg PO daily (5) Acid reflux: Plan: - Continue pantoprazole 40mg PO daily (6) Diabetes mellitus, type 2: Plan: A1c this admission was 9.6%. - Hold metformin and glipizide - Sliding scale insulin -> BSs have been 110-160 in last 24 hours. Admission and Anticipated Discharge Date Admission Date: February 21, 2021 Subjective Doing well today. No major issues. Right leg with some less pain, redness, and swelling. Reports no fevers/chills, chest pain, shortness of breath, abdominal pain, nausea, or vomiting. Physical Exam Constitutional: WD/WN, vitals as above Eyes: EOM intact bilaterally; no conjunctival abnormality ENMT: external ear and nose normal, oropharynx normal Neck: trachea midline, no thyromegaly normal visual inspection Respiratory: normal respiratory effort, lungs clear to auscultation no respiratory distress Cardiovascular: RRR, no murmur, no edema Gastrointestinal (Abdomen): Inspection/Auscultation: abdomen normal to inspection; abdomen not distended Musculoskeletal: no cyanosis or clubbing, extremities motor strength 5/5 Skin: no rashes, warm and dry Neurologic: moves all extremities and awake Psychiatric: Orientation: alert, oriented to person and cooperative Results & Data Results & Data ([facility]) Vital Signs (Past 12 Hours) Vital Signs Temp Pulse Pulse Resp BP Pulse Ox 02/23/21 16:15 37.4 C 69 16 134/71 94 02/23/21 09:18 62 02/23/21 08:10 37.3 C 59 L 16 148/75 H 94 PG Care Time/CCT Total # of Minutes Spent Total Time Spent with Patient: Total time spent is greater than 50% in coordination of care (as documented) at patient's floor/unit and/or counseling patient: Coding Level of Care Code 07331 Subseq Hosp Care Lvl 3 Diagnoses Deep vein thrombosis I82.409 Cellulitis of right lower extremity L03.115 Hypertension I10 Acid reflux K21.9 Diabetes mellitus, type 2 E11.9 Peripheral vascular disease I73.9
[2021-02-23] MEDS: VANCOMYCIN HCL 1,500 MG in SODIUM CHLORIDE 0.9% 500 ML IV SCH (21:30)
[2021-02-23] MEDS: ATORVASTATIN 40 MG TAB PO SCH (21:35)
--- NOTE | 2021-02-23 21:49 | Vascular Medicine Consultation ---
Date of Consultation February 23, 2021 Assessment & Plan (1) Venous ulcer of right le. Cellulitis 3. Acute on chronic, nonobstructive right femoral/popliteal/PT/peroneal DVT 4. Type 2 diabetes Patient with significant right lower extremity swelling, stasis dermatitis, cellulitis and areas of superficial ulceration over lateral and medial aspects of the ankle. Primary underlying etiology appears to be venous disease. Venous ultrasound suggests chronic with some areas of possible acute DVT. Suspect has a component of post thrombotic syndrome as well as superficial venous reflux. Distal foot appears well-perfused with intact DP pulse and capillary refill and perfusion should be adequate for wound healing. Recommendations: Obtain AARON/TBI to confirm no significant arterial insufficiency. If no significant disease on study can discontinue Trental. Consider wound care team involvement Continue antibiotics and anticoagulation Will need aggressive compression long-term, at least stockings of 20 to 30 mmHg Recommend obtaining an outpatient venous reflux study at my office to evaluate for superficial venous reflux potentially amenable to endovenous ablation. We will follow. Please contact with any questions. History of Present Illness Attending Physician: Sridhar Walton MD History of Present Illness Mr. Suarez is a 66-year-old prisoner seen today while admitted for right lower extremity cellulitis, DVT. Other medical issues include type 2 diabetes on oral therapy, hypertension, dyslipidemia, GERD, asthma. Prior smoker of 3 packs/day. Past endorses a long history of venous insufficiency, post right below the knee vein stripping in the s. He had a DVT more than 15 years ago for which completed a course of anticoagulation. No recurrent DVT until recently. Reports longstanding right lower extremity swelling with intermittent ulcers since that time. Has intermittently worn compression stockings 20 to 30 mmHg with some i mprovement. More recently has had limited compression options in [place]. Was previously cared for by the [facility] wound center in 2014 for a lateral ankle venous ulcer treated with multiple debridements, compression therapy including Unna boot. ABIs at that time 1.23 on the right, 1.15 on the left. Over the last week has noticed increased right lower extremity redness, swelling following trauma after slipping and falling. No fevers or chills. No chest pain or shortness of breath. Venous duplex on presentation showed what appeared to be mostly chronic DVT involving right distal femoral, popliteal, posterior tibial and peroneal veins. Started on Lovenox as well as broad-spectrum antibiotics. Patient denies any other history of vascular intervention. 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 Allergies Allergy/AdvReac Type Severity Reaction Status Date / Time iodine Allergy Mild hives, sob Verified 12/20/20 10:10 Home Medications Medication Instructions Recorded Confirmed Type aspirin 325 mg tablet 325 mg PO QAM 12/15/20 02/21/21 History atorvastatin 40 mg tablet 40 mg PO HS 12/15/20 02/21/21 History ciclesonide 160 mcg/actuation 1 puff INHALATION BID 12/15/20 02/21/21 History aerosol inhaler (Alvesco) docusate sodium 100 mg tablet 100 mg PO BID 12/15/20 02/21/21 History glipizide 5 mg tablet 10 mg PO QAM 12/15/20 02/21/21 History guaifenesin 400 mg tablet (Mucosa) 400 mg PO BID 12/15/20 02/21/21 History levalbuterol tartrate 45 2 inh INHALATION QID PRN 12/15/20 02/21/21 History mcg/actuation aerosol inhaler (Xopenex HFA) lisinopril 20 mg tablet 20 mg PO QAM 12/15/20 02/21/21 History metformin 500 mg tablet 500 mg PO QAM 12/15/20 02/21/21 History pantoprazole 40 mg tablet,delayed 40 mg PO QAM 12/15/20 02/21/21 History release pentoxifylline 400 mg 400 mg PO TID 12/15/20 02/21/21 History tablet,extended release triamcinolone acetonide 0.1 % 1 applic TOPICAL BID 12/15/20 02/21/21 History topical cream Patient History Medical History Acid reflux Asthma Diabetes mellitus, type 2 Hyperlipidemia Hypertension Surgical History History of right inguinal hernia repair History of vein stripping (~1989) right LE Family History Other Family history unknown Social History (Reviewed 02/22/21 @ 12:03 by VIV Linn Smoking Status: Never smoker Preferred Language: Nepali Communication Ability: Effective Air Purifier Servicer Required: No Beliefs That Will Affect Care: None marital status: Single Current Living Situation: Other Current Living Situation Comment: Incarcerated at [facility] [place] Feels Safe at Home: Yes Assistive Devices: None Physical Exam Physical Exam: General: Comfortable, no acute distress Eyes: Sclerae anicteric Lungs: Clear to auscultation bilaterally Cardiac: Regular rate and rhythm, no murmurs Abdomen: Soft, nontender Neuro: Nonfocal Psych: Alert orient x3, normal affect and mood Extremities/Vascular: -- 2+ radial bilaterally -- 2+ femoral bilaterally -- 2+ popliteal on left, 1+ right -- 2 + DP, diminished PT on right; 2+ DP and PT on left. Capillary refill normal bilaterally --Right 2-3+ lower extremity edema to the knee with dark, warm extending above mid feliz small superficial ulcerations anteriorly on lateral aspect large area of white skin discoloration distant with prior blister versus subcutaneous pus. Several smaller areas of white discoloration on medial aspects of ankle. Areas of lipodermatosclerosis Left with trace edema, hyperpigmentation. No stasis dermatitis. Results & Data ([facility]) Vital Signs (Past 12 Hours) Vital Signs Temp Pulse Resp BP Pulse Ox 02/23/21 16:15 99.3 F 69 16 134/71 94 PG Care Time/CCT Total # of Minutes Spent Total Time Spent with Patient: Total time spent is greater than 50% in coordination of care (as documented) at patient's floor/unit and/or counseling patient: Coding Level of Care Code 95266 Inpt Consult Level 4 Diagnoses Venous ulcer of right leg I83.019; L97.919
[2021-02-24 06:06] LABS: Hematocrit (blood only) 36.5 % (42-52); Hemoglobin 11.8 g/dL (14.0-18.0); Mean Corpuscular Hemoglobin 30.3 pg (25-34); Mean Corpuscular Hgb Conc 32.3 g/dL (32-36); Mean Corpuscular Volume 93.6 fL (80-100); Mean Platelet Volume 9.5 fL (7.4-10.4); Platelet Count 366 K/uL (130-400); RDW Coefficient of Variation 14.1 % (11.5-14.5); RDW Standard Deviation 48.5 fL (36.4-46.3); White Blood Count 7.52 K/uL (4.8-10.8)
[2021-02-24 06:28] LABS: INR 1.1 (0.9-1.1); Prothrombin Time 10.8 Seconds (9.0-12.0)
[2021-02-24 06:38] LABS: BUN Creatinine Ratio 12.2 (10-20); Calcium 8.4 mg/dl (8.5-10.1); Creatinine Clr Calc Pharmacy 111.9 ml/min; Est GFR (African American) 102.8 ml/min; Est GFR (Non-African American) 88.7 ml/min; Magnesium 1.9 mg/dl (1.8-2.4); Potassium 3.8 mmol/L (3.5-5.1)
[2021-02-24] MEDS: VANCOMYCIN HCL 1,500 MG in SODIUM CHLORIDE 0.9% 500 ML IV SCH ×2 (08:08→20:09)
[2021-02-24] MEDS: lisinopril 20 MG TAB PO SCH (08:13)
[2021-02-24] MEDS: ASPIRIN 81 MG ECTAB PO SCH (08:13)
[2021-02-24] MEDS: PANTOprazole 40 MG TAB PO SCH (08:13)
[2021-02-24] MEDS: PENTOXIFYLLINE 400MG EXT REL TAB PO SCH ×3 (08:13→20:10)
[2021-02-24] MEDS: guaiFENesin 200 MG TAB PO SCH ×2 (08:13→20:10)
[2021-02-24] MEDS: ENOXAPARIN INJ 120 MG/0.8 ML SYR SQ SCH ×2 (08:14→20:11)
[2021-02-24] MEDS: FLUTICASONE FUROATE 200MCG 14 PUFFS/INHALER INH SCH (08:14)
[2021-02-24] MEDS: DOCUSATE SODIUM 100 MG CAP PO SCH ×2 (08:17→20:16)
[2021-02-24] MEDS: INSULIN ASPART PER UNIT SC SCH ×4 (08:35→21:30)
[2021-02-24] MEDS: INSULIN GLARGINE SOLOSTAR 100 UNITS/ML 3 ML PEN SC SCH ×2 (08:35→21:30)
--- NOTE | 2021-02-24 09:35 | Hospitalist Progress Note ---
Date of Service February 24, 2021 Assessment & Plan (1) Deep vein thrombosis: Plan: Doppler on 02/21 showed "Deep venous thrombus within the right popliteal, posterior tibial and peroneal veins." - Continue Lovenox 1mg/kg BID - Started warfarin -> CM confirmed with [facility] that Lovenox is available, so this will not be an impediment to discharge. (2) Cellulitis of right lower extremity: Plan: - Continue vancomycin - Follow up blood and wound cultures -> Wound culture growing Group B Strep and MRSA, blood cultures are negative to date - Wound care to assess ulcers - Continue pentoxifylline presumable takes for venous ulcers ankle-brachial index on the right is 0.86 less than 9 we will continue methoxy Filene follow-up with outpatient vascular surgery (3) Peripheral vascular disease: Plan: Long-standing history of ulcers on the right leg. Look like last evaluations in our system were all from 2013, and meds haven't changed in quite some time. - Consult vascular surgery -> Consult was put in to Dr. Sena. Recommend outpatient follow-up (4) Hypertension: Plan: BP today is 135/70. - Continue lisinopril 20mg PO daily (5) Acid reflux: Plan: - Continue pantoprazole 40mg PO daily (6) Diabetes mellitus, type 2: Plan: A1c this admission was 9.6%. - Hold metformin and glipizide - Sliding scale insulin -> BSs have been 110-160 in last 24 hours. Admission and Anticipated Discharge Date Admission Date: February 21, 2021 Subjective Patient with still complains of discomfort to his lower leg still with increased swelling his drainage from his wounds are much less he is a large wound on his heel and a smaller wound on his Medial right calf Review of Systems Review of Systems: Mild distress and fatigue no headache, no visual changes no speech or swallowing issues no chest pain, pressure or palpitations no shortness of breath, cough or wheezes no abdominal pain, nausea or vomiting, diarrhea or constipation no dysuria, hematuria or frequency Significant right lower extremity swelling and redness no back pain, CVA tenderness or radicular pain But areas with Aquacel on them no focal signs of weakness or numbness or altered sensation no complaints of anxiety or depression.. Physical Exam Physical Exam: The patient appeared well nourished and normally developed. Vital signs as documented. Head exam is normocephalic atraumatic Neck is without JVD, thyromegaly, or carotid bruits. Lungs are clear to auscultation, no focal loss of breath sounds Cardiac exam, Rhythm is regular.. Systolic ejection murmur Abdominal exam reveals normal bowel sounds, soft non tender, no masses Extremities are 2-3+ edematous no longer weeping fluid and wounds have clean bases Neurologic exam is alert and oriented, no focal loss of strength or sensation Skin is with still with streaky redness above his knees consistent with possible cellulitis or lymphangitis Psychologically is without concerns for anxiety or depression.. Results & Data Results & Data ([facility]) Vital Signs (Past 12 Hours) Vital Signs Temp Pulse Resp BP Pulse Ox 02/24/21 07:16 99.3 F 70 18 154/80 H 94 02/23/21 23:23 98.8 F 59 L 18 127/70 97 PG Care Time/CCT Total # of Minutes Spent Total Time Spent with Patient: Total time spent is greater than 50% in coordination of care (as documented) at patient's floor/unit and/or counseling patient: Coding Level of Care Code 95241 Subseq Hosp Care Lvl 2 Diagnoses Deep vein thrombosis I82.409 Cellulitis of right lower extremity L03.115 Peripheral vascular disease I73.9 Hypertension I10 Acid reflux K21.9 Diabetes mellitus, type 2 E11.9
--- NOTE | 2021-02-24 10:18 | Ultrasound Report ---
BILATERAL TOTAL BRACHIAL INDICES CLINICAL HISTORY: Lower extremity ulcer. COMPARISON STUDY: No previous studies for comparison. TECHNIQUE: Bilateral toe to brachial indices were obtained. FINDINGS: The right toe to brachial index measured 0.86. The left toe to brachial index measured 1.40 . IMPRESSION: Right toe to brachial index of 0.86. Left toe to brachial index of 1.40. ACT 112: Negative or not required by law. Electronically signed by: Ryan Sandoval M.D. 02/24/2021 10:17 AM
--- NOTE | 2021-02-24 12:46 | Vascular Medicine ProgressNote ---
Date of Service February 24, 2021 Assessment & Plan (1) Venous ulcer of right leg: Plan: 2. Cellulitis 3. Acute on chronic, nonobstructive right femoral/popliteal/PT/peroneal DVT 4. Type 2 diabetes TBIs today are normal and consistent with exam. No signs of significant arterial insufficiency. Wounds primarily due to venous disease. -- Can discontinue trental Continue antibiotics and anticoagulation Consider wound care team involvement Will need aggressive compression long-term, at least stockings of 20 to 30 mmHg Recommend obtaining an outpatient venous reflux study at my office to evaluate for superficial venous reflux potentially amenable to endovenous ablation. Can follow-up with vascular as an outpatient. Please contact if any additional questions. Admission and Anticipated Discharge Date Admission Date: February 21, 2021 Subjective No new issues overnight. Feels like leg maybe a little less red. No other new concerns. Review of Systems Review of Systems: All systems reviewed & are unremarkable except as noted in HPI & below Physical Exam Physical Exam: General: Comfortable, no acute distress Eyes: Sclerae anicteric Lungs: Clear to auscultation bilaterally Cardiac: Regular rate and rhythm, no murmurs Abdomen: Soft, nontender Neuro: Nonfocal Psych: Alert orient x3, normal affect and mood Extremities/Vascular: -- 2+ radial bilaterally -- Capillary refill normal bilaterally --Right 2-3+ lower extremity edema to the knee with dark, warm extending above mid feliz. Largely unchanged from yesterday. Wounds dressed Left with trace edema, hyperpigmentation. No stasis dermatitis. Results & Data ([facility]) Vital Signs (Past 12 Hours) Vital Signs Temp Pulse Resp BP Pulse Ox 02/24/21 07:16 99.3 F 70 18 154/80 H 94 PG Care Time/CCT Total # of Minutes Spent Total Time Spent with Patient: Total time spent is greater than 50% in coordination of care (as documented) at patient's floor/unit and/or counseling patient: Coding Level of Care Code 85644 Subseq Hosp Care Lvl 3 Diagnoses Venous ulcer of right leg I83.019; L97.919
[2021-02-24] MEDS ORDERED: PNEUMOCOCCAL Polysaccharide Vaccine 25mcg/0.5mL vial/Syr IM ONE (15:15)
[2021-02-24] MEDS: WARFARIN SOD 5 MG TAB PO SCH (18:04)
[2021-02-24] MEDS: ATORVASTATIN 40 MG TAB PO SCH (20:10)
[2021-02-24] MEDS: ACETAMINOPHEN 325 MG TAB PO PRN (20:16)
[2021-02-25] MEDS ORDERED: VANCOMYCIN TROUGH ONE (07:30)
[2021-02-25 07:57] LABS: INR 1.1 (0.9-1.1); Prothrombin Time 10.9 Seconds (9.0-12.0)
[2021-02-25] MEDS: VANCOMYCIN HCL 1,500 MG in SODIUM CHLORIDE 0.9% 500 ML IV SCH (08:13)
[2021-02-25] MEDS: guaiFENesin 200 MG TAB PO SCH ×2 (08:39→21:27)
[2021-02-25] MEDS: PENTOXIFYLLINE 400MG EXT REL TAB PO SCH ×3 (08:39→21:27)
--- NOTE | 2021-02-25 08:39 | Hospitalist Progress Note ---
Date of Service February 25, 2021 Assessment & Plan (1) Deep vein thrombosis: Plan: Doppler on 02/21 showed "Deep venous thrombus within the right popliteal, posterior tibial and peroneal veins." - Continue Lovenox 1mg/kg BID - Started warfarin -> CM confirmed with [facility] that Lovenox is available, so this will not be an impediment to discharge. 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 Look like last evaluations in our system were all from 2013, and meds haven't changed in quite some time. - Consult vascular surgery -> Consult was put in to Dr. Sena. Recommend outpatient follow-up (4) Hypertension: Plan: BP today is 135/70. - Continue lisinopril 20mg PO daily (5) Acid reflux: Plan: - Continue pantoprazole 40mg PO daily (6) Diabetes mellitus, type 2: Plan: A1c this admission was 9.6%. - Holding metformin and glipizide - Sliding scale insulin -> BSs have been 110-160 in last 24 hours. Admission and Anticipated Discharge Date Admission Date: February 21, 2021 Subjective Patient with still complains of discomfort to his lower leg still with persistent swelling and redness to inner upper thigh Review of Systems Review of Systems: Mild distress and fatigue no headache, no visual changes no speech or swallowing issues no chest pain, pressure or palpitations no shortness of breath, cough or wheezes no abdominal pain, nausea or vomiting, diarrhea or constipation no dysuria, hematuria or frequency Significant right lower extremity swelling and redness no back pain, CVA tenderness or radicular pain But areas with Aquacel on them no focal signs of weakness or numbness or altered sensation no complaints of anxiety or depression.. Physical Exam Physical Exam: The patient appeared well nourished and normally developed. Vital signs as documented. Head exam is normocephalic atraumatic Neck is without JVD, thyromegaly, or carotid bruits. Lungs are clear to auscultation, no focal loss of breath sounds Cardiac exam, Rhythm is regular.. Systolic ejection murmur Abdominal exam reveals normal bowel sounds, soft non tender, no masses Extremities are 2-3+ edematous no longer weeping fluid and wounds have clean bases Neurologic exam is alert and oriented, no focal loss of strength or sensation Skin is with still with streaky redness above his knees consistent with possible cellulitis or lymphangitis Psychologically is without concerns for anxiety or depression.. Results & Data Results & Data ([facility]) Vital Signs (Past 12 Hours) Vital Signs Temp Pulse Pulse Resp BP Pulse Ox 02/25/21 07:06 98.8 F 70 16 146/81 H 94 02/25/21 06:09 62 149/82 H 02/24/21 23:40 99.0 F 70 18 165/88 H 95 PG Care Time/CCT Total # of Minutes Spent Total Time Spent with Patient: Total time spent is greater than 50% in coordination of care (as documented) at patient's floor/unit and/or counseling patient: Coding Level of Care Code 60405 Subseq Hosp Care Lvl 3 Diagnoses Deep vein thrombosis I82.409 Cellulitis of right lower extremity L03.115 Peripheral vascular disease I73.9 Hypertension I10 Acid reflux K21.9 Diabetes mellitus, type 2 E11.9
[2021-02-25] MEDS: PANTOprazole 40 MG TAB PO SCH (08:40)
[2021-02-25] MEDS: ASPIRIN 81 MG ECTAB PO SCH (08:40)
[2021-02-25] MEDS: FLUTICASONE FUROATE 200MCG 14 PUFFS/INHALER INH SCH (08:41)
[2021-02-25] MEDS: ENOXAPARIN INJ 120 MG/0.8 ML SYR SQ SCH ×2 (08:41→21:27)
[2021-02-25] MEDS: lisinopril 20 MG TAB PO SCH (08:41)
[2021-02-25] MEDS: INSULIN GLARGINE SOLOSTAR 100 UNITS/ML 3 ML PEN SC SCH ×2 (08:42→21:25)
[2021-02-25] MEDS: INSULIN ASPART PER UNIT SC SCH ×4 (08:45→21:24)
[2021-02-25] MEDS: DOCUSATE SODIUM 100 MG CAP PO SCH ×2 (08:53→22:49)
--- NOTE | 2021-02-25 09:41 | Pharmacy Report ---
Pharmacy Vanc AUC Short Note - Date of Service February 25, 2021 - Assessment & Plan Assessment 66 year old M receiving IV Vancomycin for treatment of RLE MRSA Cellulitis. Day # 5 of IV Vancomycin Plan Vancomycin * AUC/JOSE ROBERTO is the preferred PK/PD target for vancomycin * AUC guided dosing is effective and associated with decreased risk of nephrotoxicity compared to traditional trough targets * Trough level of 15.7 mcg/mL is predicted to achieve target AUC/JOSE ROBERTO of 400-600 mg/L.hr and may be associated with a 11 % risk of nephrotoxicity * Continue dose of 1500 mg IV every 12 hours * Further levels may be ordered depending on duration of therapy. Pharmacy will continue to follow and will adjust dose/frequency as necessary. Thank you.
[2021-02-25] MEDS: WARFARIN SOD 5 MG TAB PO SCH (16:21)
[2021-02-25] MEDS ORDERED: PIPERACILL/TAZOBAC CONSULT ACTIVE PRN (18:01)
[2021-02-25] MEDS ORDERED: PIPERACILLIN/TAZOBACTAM 4.5 GM in DEXTROSE 5% 100 ML IV ONE (18:30)
[2021-02-25] MEDS: ACETAMINOPHEN 325 MG TAB PO PRN (19:38)
[2021-02-25] MEDS: ATORVASTATIN 40 MG TAB PO SCH (21:27)
[2021-02-26] MEDS: PIPERACILLIN/TAZOBACTAM 4.5 GM in DEXTROSE 5% 100 ML IV SCH ×4 (00:37→23:53)
--- NOTE | 2021-02-26 08:13 | Hospitalist Progress Note ---
Date of Service February 26, 2021 Assessment & Plan (1) Deep vein thrombosis: Plan: Doppler on 02/21 showed "Deep venous thrombus within the right popliteal, posterior tibial and peroneal veins." - Continue Lovenox 1mg/kg BID - Started warfarin -> CM confirmed with [facility] that Lovenox is available, so this will not be an impediment to discharge. 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, surface culture growing Group B Strep and MRSA, blood cultures are negative to date -since diabetic leg infection will not just allow surface cutlure to dictate, continue vancomycin to treat culture but add Zosyn to cover gram negatives but is at risk - Wound care to assess ulcers - Continue pentoxifylline presumable takes for venous ulcers ankle-brachial index on the right is 0.86 less than 9 we will continue pentoxifylline follow-up with outpatient vascular surgery significant swelling will try lasix x 1 dose some dorsal foot pain, will check MRI foot at this time (3) Peripheral vascular disease: Plan: Long-standing history of ulcers on the right leg. Look like last evaluations in our system were all from 2013, and meds haven't changed in quite some time. - Consult vascular surgery -> Consult was put in to Dr. Sena. Recommend outpatient follow-up (4) Hypertension: Plan: BP today is 135/70. - Continue lisinopril 20mg PO daily (5) Acid reflux: Plan: - Continue pantoprazole 40mg PO daily (6) Diabetes mellitus, type 2: Plan: A1c this admission was 9.6%. - Holding metformin and glipizide - Sliding scale insulin -> BSs have been 110-160 in last 24 hours. Admission and Anticipated Discharge Date Admission Date: February 21, 2021 Subjective Patient with still complains of discomfort to his lower leg still with persistent swelling and redness to inner upper thigh, has some pain across the distal metatarsal on the right foot Review of Systems Review of Systems: Mild distress and fatigue no headache, no visual changes no speech or swallowing issues no chest pain, pressure or palpitations no shortness of breath, cough or wheezes no abdominal pain, nausea or vomiting, diarrhea or constipation no dysuria, hematuria or frequency Significant right lower extremity swelling and redness, pain across right dorsum of foot no back pain, CVA tenderness or radicular pain But areas with Aquacel on them no focal signs of weakness or numbness or altered sensation no complaints of anxiety or depression.. Physical Exam Physical Exam: The patient appeared well nourished and normally developed. Vital signs as documented. Head exam is normocephalic atraumatic Neck is without JVD, thyromegaly, or carotid bruits. Lungs are clear to auscultation, no focal loss of breath sounds Cardiac exam, Rhythm is regular.. Systolic ejection murmur Abdominal exam reveals normal bowel sounds, soft non tender, no masses Extremities are 2-3+ edematous no longer weeping fluid and wounds have clean bases Neurologic exam is alert and oriented, no focal loss of strength or sensation Skin is with still with streaky redness above his knees consistent with possible cellulitis or lymphangitis Psychologically is without concerns for anxiety or depression.. Results & Data Results & Data ([facility]) Vital Signs (Past 12 Hours) Vital Signs Temp Pulse Resp BP Pulse Ox 02/26/21 07:30 99.1 F 69 16 132/79 94 02/25/21 23:22 99.0 F 60 18 149/74 H 95 PG Care Time/CCT Total # of Minutes Spent Total Time Spent with Patient: Total time spent is greater than 50% in coordination of care (as documented) at patient's floor/unit and/or counseling patient: Coding Level of Care Code 66942 Subseq Hosp Care Lvl 2 Diagnoses Deep vein thrombosis I82.409 Cellulitis of right lower extremity L03.115 Peripheral vascular disease I73.9 Hypertension I10 Acid reflux K21.9 Diabetes mellitus, type 2 E11.9
[2021-02-26] MEDS ORDERED: FUROSEMIDE 40 MG/4 ML VIAL IV ONE (08:30)
[2021-02-26 08:48] LABS: INR 1.1 (0.9-1.1); Prothrombin Time 11.2 Seconds (9.0-12.0)
[2021-02-26] MEDS: PENTOXIFYLLINE 400MG EXT REL TAB PO SCH ×3 (09:12→21:17)
[2021-02-26] MEDS: ASPIRIN 81 MG ECTAB PO SCH (09:12)
[2021-02-26] MEDS: ENOXAPARIN INJ 120 MG/0.8 ML SYR SQ SCH ×2 (09:12→21:18)
[2021-02-26] MEDS: FLUTICASONE FUROATE 200MCG 14 PUFFS/INHALER INH SCH (09:12)
[2021-02-26] MEDS: lisinopril 20 MG TAB PO SCH (09:12)
[2021-02-26] MEDS: guaiFENesin 200 MG TAB PO SCH ×2 (09:12→21:19)
[2021-02-26] MEDS: PANTOprazole 40 MG TAB PO SCH (09:12)
[2021-02-26] MEDS: INSULIN GLARGINE SOLOSTAR 100 UNITS/ML 3 ML PEN SC SCH ×2 (09:13→21:19)
[2021-02-26] MEDS: INSULIN ASPART PER UNIT SC SCH ×4 (09:17→21:33)
[2021-02-26] MEDS: DOCUSATE SODIUM 100 MG CAP PO SCH ×2 (09:32→21:18)
[2021-02-26] MEDS: DAPTOmycin 500 MG in SYRINGE 0 ML IV SCH (12:29)
--- NOTE | 2021-02-26 16:08 | Magnetic Resonance Report ---
MR foot RT w/o con CLINICAL HISTORY: Swelling of the toes with edema extending proximally. Evaluate for osteomyelitis. COMPARISON: None. TECHNIQUE: Multiplanar multisequence images of the distal right foot were performed without contrast . FINDINGS: Osseous structures: Homogeneous marrow signal is seen throughout the imaged bones of the foot. There is no evidence for marrow edema or marrow replacement. No acute osseous pathology is seen. Joints: The tarsometatarsal joints are intact. The IP joints are intact. The remaining imaged joints of the foot are intact. Tendons: The extensor tendons along the dorsum of the foot and the flexor tendons along the plantar a spect of the foot are intact. The imaged portion of the plantar fascia appears normal. Ligaments: The imaged ligaments of the foot are intact. Soft tissues: There is diffuse subcutaneous edema surrounding the toes with rather marked subcutaneou s edema extending along the dorsum of the foot. Findings are most characteristic of the presence of c ellulitis. No focal abscess is identified. IMPRESSION: Cellulitis of the toes and marked cellulitis extending along the dorsum of the foot. No evidence for abscess. No evidence for osteomyelitis. ACT 112: Negative or not required by law. Electronically signed by: Harpreet Young M.D. 02/26/2021 4:07 PM
[2021-02-26] MEDS: WARFARIN SOD 5 MG TAB PO SCH (16:16)
[2021-02-26] MEDS: ACETAMINOPHEN 325 MG TAB PO PRN (18:22)
[2021-02-27 06:18] LABS: Hematocrit (blood only) 36.9 % (42-52); Mean Corpuscular Hemoglobin 30.9 pg (25-34); Mean Corpuscular Hgb Conc 32.5 g/dL (32-36); Mean Corpuscular Volume 95.1 fL (80-100); Mean Platelet Volume 9.4 fL (7.4-10.4); Platelet Count 414 K/uL (130-400); RDW Coefficient of Variation 14.2 % (11.5-14.5); RDW Standard Deviation 49.3 fL (36.4-46.3); Red Blood Count 3.88 M/uL (4.7-6.1); White Blood Count 6.27 K/uL (4.8-10.8)
[2021-02-27 06:47] LABS: Creatinine Clr Calc Pharmacy 102.8 ml/min; Est GFR (African American) 92.7 ml/min
[2021-02-27] MEDS: FLUTICASONE FUROATE 200MCG 14 PUFFS/INHALER INH SCH (08:51)
[2021-02-27] MEDS: ACETAMINOPHEN 325 MG TAB PO PRN ×2 (08:51→19:59)
[2021-02-27] MEDS: PIPERACILLIN/TAZOBACTAM 4.5 GM in DEXTROSE 5% 100 ML IV SCH ×2 (08:51→15:54)
[2021-02-27] MEDS: INSULIN GLARGINE SOLOSTAR 100 UNITS/ML 3 ML PEN SC SCH ×2 (08:53→21:09)
[2021-02-27] MEDS: PANTOprazole 40 MG TAB PO SCH (08:54)
[2021-02-27] MEDS: guaiFENesin 200 MG TAB PO SCH ×2 (08:54→21:05)
[2021-02-27] MEDS: PENTOXIFYLLINE 400MG EXT REL TAB PO SCH ×3 (08:54→21:06)
[2021-02-27] MEDS: ASPIRIN 81 MG ECTAB PO SCH (08:54)
[2021-02-27] MEDS: lisinopril 20 MG TAB PO SCH (08:54)
[2021-02-27] MEDS: ENOXAPARIN INJ 120 MG/0.8 ML SYR SQ SCH ×2 (08:54→21:05)
[2021-02-27] MEDS: INSULIN ASPART PER UNIT SC SCH ×4 (08:56→21:14)
[2021-02-27] MEDS: DOCUSATE SODIUM 100 MG CAP PO SCH ×2 (08:56→21:06)
[2021-02-27] MEDS ORDERED: FUROSEMIDE 40 MG/4 ML VIAL IV ONE (12:17)
[2021-02-27] MEDS: DAPTOmycin 500 MG in SYRINGE 0 ML IV SCH (12:34)
[2021-02-27] MEDS: WARFARIN SOD 5 MG TAB PO SCH (15:54)
--- NOTE | 2021-02-27 18:09 | Hospitalist Progress Note ---
Date of Service February 27, 2021 Assessment & Plan (1) Deep vein thrombosis: Plan: Doppler on 02/21 showed "Deep venous thrombus within the right popliteal, posterior tibial and peroneal veins." - Continue Lovenox 1mg/kg BID - Started warfarin 02/24-> CM confirmed with [facility] that Lovenox is available, so this will not be an impediment to discharge. 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, surface culture growing Group B Strep and MRSA, blood cultures are negative to date -since diabetic leg infection will not just allow surface cutlure to dictate, continue vancomycin to treat culture but add Zosyn to cover gram negatives but is at risk - Wound care to assess ulcers - Continue pentoxifylline presumable takes for venous ulcers ankle-brachial index on the right is 0.86 less than 9 we will continue pentoxifylline follow-up with outpatient vascular surgery significant swelling lasix 40 iv some dorsal foot pain, MRI foot supports cellulitis but not osteomyelitis will need outpt wound care follow up for heel ulcer and stasis dermatitis (3) Peripheral vascular disease: Plan: Long-standing history of ulcers on the right leg. Look like last evaluations in our system were all from 2013, and meds haven't changed in quite some time. - Consult vascular surgery -> Consult was put in to Dr. Sena. Recommend outpatient follow-up (4) Hypertension: Plan: BP today is 135/70. - Continue lisinopril 20mg PO daily (5) Acid reflux: Plan: - Continue pantoprazole 40mg PO daily (6) Diabetes mellitus, type 2: Plan: A1c this admission was 9.6%. - Holding metformin and glipizide - Sliding scale insulin -> BSs have been 110-160 in last 24 hours. Admission and Anticipated Discharge Date Admission Date: February 21, 2021 Subjective Patient with still complains of discomfort to his lower leg still with persistent swelling has had some improved swelling with lasix and reduction in redness after starting gram negative coverage Review of Systems Review of Systems: Mild distress and fatigue no headache, no visual changes no speech or swallowing issues no chest pain, pressure or palpitations no shortness of breath, cough or wheezes no abdominal pain, nausea or vomiting, diarrhea or constipation no dysuria, hematuria or frequency Significant right lower extremity swelling and redness, pain across right dorsum of foot no back pain, CVA tenderness or radicular pain But areas with Aquacel on them no focal signs of weakness or numbness or altered sensation no complaints of anxiety or depression.. Physical Exam Physical Exam: The patient appeared well nourished and normally developed. Vital signs as documented. Head exam is normocephalic atraumatic Neck is without JVD, thyromegaly, or carotid bruits. Lungs are clear to auscultation, no focal loss of breath sounds Cardiac exam, Rhythm is regular.. Systolic ejection murmur Abdominal exam reveals normal bowel sounds, soft non tender, no masses Extremities are 2-3+ edematous no longer weeping fluid and wounds have clean bases Neurologic exam is alert and oriented, no focal loss of strength or sensation Skin is with still with streaky redness above his knees consistent with possible cellulitis or lymphangitis Psychologically is without concerns for anxiety or depression.. Results & Data Results & Data ([facility]) Vital Signs (Past 12 Hours) Vital Signs Temp Pulse Resp BP Pulse Ox 02/27/21 15:19 98.8 F 69 16 118/65 95 02/27/21 07:20 98.8 F 68 16 125/71 94 PG Care Time/CCT Total # of Minutes Spent Total Time Spent with Patient: Total time spent is greater than 50% in coordination of care (as documented) at patient's floor/unit and/or counseling patient: Coding Level of Care Code 64153 Subseq Hosp Care Lvl 3 Diagnoses Deep vein thrombosis I82.409 Cellulitis of right lower extremity L03.115 Peripheral vascular disease I73.9 Hypertension I10 Acid reflux K21.9 Diabetes mellitus, type 2 E11.9
[2021-02-28] MEDS: PIPERACILLIN/TAZOBACTAM 4.5 GM in DEXTROSE 5% 100 ML IV SCH ×3 (00:01→15:59)
[2021-02-28 06:28] LABS: INR 1.1 (0.9-1.1); Prothrombin Time 10.8 Seconds (9.0-12.0)
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
[2021-02-28 08:06] LABS: Basophils # (auto) 0.04 K/uL (0-0.2); Basophils % (auto) 0.6 %; Eosinophils # (auto) 0.25 K/uL (0-0.5); Eosinophils % (auto) 3.6 %; Hematocrit (blood only) 38.9 % (42-52); Hemoglobin 12.8 g/dL (14.0-18.0); Immature Granulocytes # (auto) 0.02 K/uL (0.00-0.02); Immature Granulocytes % (auto) 0.3 %; Lymphocytes # (auto) 2.48 K/uL (1.2-3.4); Lymphocytes % (auto) 35.7 %; Mean Corpuscular Hemoglobin 31.2 pg (25-34); Mean Corpuscular Hgb Conc 32.9 g/dL (32-36); Mean Corpuscular Volume 94.9 fL (80-100); Mean Platelet Volume 9.2 fL (7.4-10.4); Monocytes % (auto) 7.2 %; Neutrophils # (auto) 3.65 K/uL (1.4-6.5); Neutrophils % (auto) 52.6 %; Platelet Count 411 K/uL (130-400); RDW Coefficient of Variation 14.3 % (11.5-14.5); White Blood Count 6.94 K/uL (4.8-10.8)
[2021-02-28 08:19] LABS: Albumin Level 2.3 gm/dl (3.4-5.0); BUN Creatinine Ratio 14.9 (10-20); Calcium 9.1 mg/dl (8.5-10.1); Creatinine Clr Calc Pharmacy 90.7 ml/min; Est GFR (African American) 79.8 ml/min; Est GFR (Non-African American) 68.8 ml/min; Magnesium 2.1 mg/dl (1.8-2.4); Potassium 3.7 mmol/L (3.5-5.1)
[2021-02-28 08:23] LABS: Albumin Globulin Ratio 0.4 (0.9-2); Globulin 5.5 gm/dl (2.5-4.0); Total Protein 7.8 gm/dl (6.4-8.2)
[2021-02-28 08:48] LABS: Bilirubin,Total 0.2 mg/dl (0.2-1)
[2021-02-28] MEDS: ASPIRIN 81 MG ECTAB PO SCH (08:55)
[2021-02-28] MEDS: ENOXAPARIN INJ 120 MG/0.8 ML SYR SQ SCH ×2 (08:55→20:15)
[2021-02-28] MEDS: guaiFENesin 200 MG TAB PO SCH ×2 (08:56→20:15)
[2021-02-28] MEDS: FLUTICASONE FUROATE 200MCG 14 PUFFS/INHALER INH SCH (08:56)
[2021-02-28] MEDS: INSULIN GLARGINE SOLOSTAR 100 UNITS/ML 3 ML PEN SC SCH ×2 (08:57→21:30)
[2021-02-28] MEDS: PANTOprazole 40 MG TAB PO SCH (08:58)
[2021-02-28] MEDS: lisinopril 20 MG TAB PO SCH (08:58)
[2021-02-28] MEDS: PENTOXIFYLLINE 400MG EXT REL TAB PO SCH ×3 (08:59→20:13)
[2021-02-28] MEDS: INSULIN ASPART PER UNIT SC SCH ×4 (09:12→21:39)
[2021-02-28] MEDS: ACETAMINOPHEN 325 MG TAB PO PRN (09:14)
[2021-02-28] MEDS: DOCUSATE SODIUM 100 MG CAP PO SCH ×2 (09:14→20:13)
[2021-02-28] MEDS ORDERED: POTASSIUM CHLORIDE CRTAB 20 MEQ TABCR PO STA (10:43)
[2021-02-28] MEDS ORDERED: FUROSEMIDE 40 MG/4 ML VIAL IV ONE (10:43)
[2021-02-28] MEDS: DAPTOmycin 500 MG in SYRINGE 0 ML IV SCH (12:33)
[2021-02-28] MEDS: ACETAMINOPHEN 500 MG TAB PO PRN (15:58)
[2021-02-28] MEDS: WARFARIN SOD 5 MG TAB PO SCH (15:59)
[2021-03-01] MEDS: ACETAMINOPHEN 500 MG TAB PO PRN ×2 (00:41→09:00)
[2021-03-01] MEDS: PIPERACILLIN/TAZOBACTAM 4.5 GM in DEXTROSE 5% 100 ML IV SCH ×2 (00:41→08:47)
[2021-03-01 07:39] LABS: Basophils # (auto) 0.04 K/uL (0-0.2); Basophils % (auto) 0.6 %; Eosinophils # (auto) 0.29 K/uL (0-0.5); Eosinophils % (auto) 4.5 %; Hematocrit (blood only) 39.5 % (42-52); Hemoglobin 12.6 g/dL (14.0-18.0); Immature Granulocytes # (auto) 0.01 K/uL (0.00-0.02); Immature Granulocytes % (auto) 0.2 %; Lymphocytes # (auto) 2.38 K/uL (1.2-3.4); Lymphocytes % (auto) 36.6 %; Mean Corpuscular Hemoglobin 30.6 pg (25-34); Mean Corpuscular Hgb Conc 31.9 g/dL (32-36); Mean Corpuscular Volume 95.9 fL (80-100); Mean Platelet Volume 8.9 fL (7.4-10.4); Monocytes # (auto) 0.51 K/uL (0.11-0.59); Monocytes % (auto) 7.8 %; Neutrophils # (auto) 3.27 K/uL (1.4-6.5); Neutrophils % (auto) 50.3 %; Platelet Count 443 K/uL (130-400); RDW Coefficient of Variation 14.5 % (11.5-14.5); RDW Standard Deviation 51.2 fL (36.4-46.3); Red Blood Count 4.12 M/uL (4.7-6.1)
[2021-03-01 07:48] LABS: INR 1.1 (0.9-1.1); Prothrombin Time 10.8 Seconds (9.0-12.0)
[2021-03-01 08:04] LABS: Albumin Level 2.6 gm/dl (3.4-5.0); BUN Creatinine Ratio 13.8 (10-20); Calcium 9.5 mg/dl (8.5-10.1); Creatinine Clr Calc Pharmacy 102.8 ml/min; Est GFR (African American) 92.7 ml/min; Potassium 3.9 mmol/L (3.5-5.1)
[2021-03-01 08:07] LABS: Albumin Globulin Ratio 0.5 (0.9-2); Bilirubin,Total 0.3 mg/dl (0.2-1); Globulin 5.4 gm/dl (2.5-4.0)
[2021-03-01] MEDS: PENTOXIFYLLINE 400MG EXT REL TAB PO SCH ×2 (08:48→13:43)
[2021-03-01] MEDS: PANTOprazole 40 MG TAB PO SCH (08:48)
[2021-03-01] MEDS: ENOXAPARIN INJ 120 MG/0.8 ML SYR SQ SCH (08:49)
[2021-03-01] MEDS: DOCUSATE SODIUM 100 MG CAP PO SCH (08:49)
[2021-03-01] MEDS: ASPIRIN 81 MG ECTAB PO SCH (08:49)
--- NOTE | 2021-03-01 08:49 | Hospitalist Progress Note ---
Date of Service March 01, 2021 Assessment & Plan Admission and Anticipated Discharge Date Admission Date: February 21, 2021 Subjective patient evaluated this morning got tylenol for pain, controlled at the moment overwhelmed with all information regarding diabetes and food choices -- seen by DM educator this morning and provided information. Encouraged him to review to see if any questions but will need continued monitoring. Discussed coumadin to 10mg and to continue x 2 days and will need continued INR monitoring and lovenox until therapeutic. [facility]-Way checking to see if Zyvox available for today, if so possible d/c. If not, will plan for d/c in AM. no fever, chest pain, shortness of breath, abdominal pain, nausea or vomiting. Will need continued wound care in follow up as well. Results & Data Results & Data ([facility]) Vital Signs (Past 12 Hours) Vital Signs Temp Pulse Resp BP Pulse Ox 03/01/21 08:16 37.0 C 61 16 123/70 94 02/28/21 22:25 37.0 C 67 18 160/83 H 96 Laboratory Results 03/01/21 03/01/21 03/01/21 Range/Units 08:07 07:01 07:01 WBC 6.50 (4.8-10.8) K/uL RBC 4.12 L (4.7-6.1) M/uL Hgb 12.6 L (14.0-18.0) g/dL Hct 39.5 L (42-52) % MCV 95.9 (80-100) fL MCH 30.6 (25-34) pg MCHC 31.9 L (32-36) g/dL RDW Std Deviation 51.2 H (36.4-46.3) fL RDW Coeff of John 14.5 (11.5-14.5) % Plt Count 443 H (130-400) K/uL MPV 8.9 (7.4-10.4) fL Immature Gran % (Auto) 0.2 % Neut % (Auto) 50.3 % Lymph % (Auto) 36.6 % [place] % (Auto) 7.8 % Eos % (Auto) 4.5 % Baso % (Auto) 0.6 % Neut # (Auto) 3.27 (1.4-6.5) K/uL Lymph # (Auto) 2.38 (1.2-3.4) K/uL [place] # (Auto) 0.51 (0.11-0.59) K/uL Eos # (Auto) 0.29 (0-0.5) K/uL Baso # (Auto) 0.04 (0-0.2) K/uL Immature Gran # (Auto) 0.01 (0.00-0.02) K/uL PT (9.0-12.0) Seconds INR (0.9-1.1) Sodium 138 (136-145) mmol/L Potassium 3.9 (3.5-5.1) mmol/L Chloride 106 (98-107) mmol/L Carbon Dioxide 28 (21-32) mmol/L Anion Gap 4.0 (3-11) BUN 14 (7-18) mg/dl Creatinine 0.98 (0.6-1.4) mg/dl Est Cr Clr Drug Dosing 102.8 ml/min Est GFR ( Amer) 92.7 ml/min Est GFR (Non-Af Amer) 80.0 ml/min BUN/Creatinine Ratio 13.8 (10-20) Glucose 125 H (70-99) mg/dl POC Glucose 128 H (70-99) mg/dl Calcium 9.5 (8.5-10.1) mg/dl Total Bilirubin 0.3 (0.2-1) mg/dl AST 43 H (15-37) U/L ALT 7 L (12-78) Alkaline Phosphatase 81 (45-117) U/L C-Reactive Protein (0-0.29) mg/dl Total Protein 8.0 (6.4-8.2) gm/dl Albumin 2.6 L (3.4-5.0) gm/dl Globulin 5.4 H (2.5-4.0) gm/dl Albumin/Globulin Ratio 0.5 L (0.9-2) 03/01/21 02/28/21 02/28/21 Range/Units 07:01 20:51 17:02 WBC (4.8-10.8) K/uL RBC (4.7-6.1) M/uL Hgb (14.0-18.0) g/dL Hct (42-52) % MCV (80-100) fL MCH (25-34) pg MCHC (32-36) g/dL RDW Std Deviation (36.4-46.3) fL RDW Coeff of John (11.5-14.5) % Plt Count (130-400) K/uL MPV (7.4-10.4) fL Immature Gran % (Auto) % Neut % (Auto) % Lymph % (Auto) % [place] % (Auto) % Eos % (Auto) % Baso % (Auto) % Neut # (Auto) (1.4-6.5) K/uL Lymph # (Auto) (1.2-3.4) K/uL [place] # (Auto) (0.11-0.59) K/uL Eos # (Auto) (0-0.5) K/uL Baso # (Auto) (0-0.2) K/uL Immature Gran # (Auto) (0.00-0.02) K/uL PT 10.8 (9.0-12.0) Seconds INR 1.1 (0.9-1.1) Sodium (136-145) mmol/L Potassium (3.5-5.1) mmol/L Chloride (98-107) mmol/L Carbon Dioxide (21-32) mmol/L Anion Gap (3-11) BUN (7-18) mg/dl Creatinine (0.6-1.4) mg/dl Est Cr Clr Drug Dosing ml/min Est GFR ( Amer) ml/min Est GFR (Non-Af Amer) ml/min BUN/Creatinine Ratio (10-20) Glucose (70-99) mg/dl POC Glucose 161 H 153 H (70-99) mg/dl Calcium (8.5-10.1) mg/dl Total Bilirubin (0.2-1) mg/dl AST (15-37) U/L ALT (12-78) Alkaline Phosphatase (45-117) U/L C-Reactive Protein (0-0.29) mg/dl Total Protein (6.4-8.2) gm/dl Albumin (3.4-5.0) gm/dl Globulin (2.5-4.0) gm/dl Albumin/Globulin Ratio (0.9-2) 02/28/21 02/28/21 02/28/21 Range/Units 12:17 06:01 06:01 WBC (4.8-10.8) K/uL RBC (4.7-6.1) M/uL Hgb (14.0-18.0) g/dL Hct (42-52) % MCV (80-100) fL MCH (25-34) pg MCHC (32-36) g/dL RDW Std Deviation (36.4-46.3) fL RDW Coeff of John (11.5-14.5) % Plt Count (130-400) K/uL MPV (7.4-10.4) fL Immature Gran % (Auto) % Neut % (Auto) % Lymph % (Auto) % [place] % (Auto) % Eos % (Auto) % Baso % (Auto) % Neut # (Auto) (1.4-6.5) K/uL Lymph # (Auto) (1.2-3.4) K/uL [place] # (Auto) (0.11-0.59) K/uL Eos # (Auto) (0-0.5) K/uL Baso # (Auto) (0-0.2) K/uL Immature Gran # (Auto) (0.00-0.02) K/uL PT (9.0-12.0) Seconds INR (0.9-1.1) Sodium (136-145) mmol/L Potassium (3.5-5.1) mmol/L Chloride (98-107) mmol/L Carbon Dioxide (21-32) mmol/L Anion Gap (3-11) BUN (7-18) mg/dl Creatinine (0.6-1.4) mg/dl Est Cr Clr Drug Dosing ml/min Est GFR ( Amer) ml/min Est GFR (Non-Af Amer) ml/min BUN/Creatinine Ratio (10-20) Glucose (70-99) mg/dl POC Glucose 115 H (70-99) mg/dl Calcium (8.5-10.1) mg/dl Total Bilirubin 0.2 (0.2-1) mg/dl AST (15-37) U/L ALT (12-78) Alkaline Phosphatase (45-117) U/L C-Reactive Protein 2.00 H (0-0.29) mg/dl Total Protein (6.4-8.2) gm/dl Albumin (3.4-5.0) gm/dl Globulin (2.5-4.0) gm/dl Albumin/Globulin Ratio (0.9-2) PG Care Time/CCT Total # of Minutes Spent Total Time Spent with Patient: Total time spent is greater than 50% in coordination of care (as documented) at patient's floor/unit and/or counseling patient: Coding
[2021-03-01] MEDS: FLUTICASONE FUROATE 200MCG 14 PUFFS/INHALER INH SCH (08:50)
[2021-03-01] MEDS: guaiFENesin 200 MG TAB PO SCH (08:50)
[2021-03-01] MEDS: lisinopril 20 MG TAB PO SCH (08:51)
[2021-03-01] MEDS: INSULIN GLARGINE SOLOSTAR 100 UNITS/ML 3 ML PEN SC SCH (08:52)
[2021-03-01] MEDS: INSULIN ASPART PER UNIT SC SCH ×2 (09:23→12:39)
[2021-03-01] MEDS ORDERED: FUROSEMIDE INJ 20 MG/2 ML VIAL IV ONE (10:49)
[2021-03-01] MEDS: DAPTOmycin 500 MG in SYRINGE 0 ML IV SCH (12:02)
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
[2021-03-01] MEDS ORDERED: WARFARIN SOD 10 MG TAB PO SCH (16:00)
[2021-03-01] MEDS ORDERED: WARFARIN SOD 6 MG TAB PO SCH (16:00)
[2021-03-01] MEDS ORDERED: AMOXICILLIN/CLAVULANATE 875 MG TAB PO SCH (17:00)
[2021-03-02] MEDS ORDERED: LINEZOLID 600 MG TAB PO SCH (09:00)
== END 2021-03-01 15:17 | DRG 300 ==
LOC: ED 12:55 → EDINP 18:49 → SUATTDRO 18:49 → EDINP 21:15 → 3E 02-22 16:07

== ENCOUNTER 2024-10-07 08:58 | Inpatient (IN) ==
[2024-10-07] MEDS: PLASMA-LYTE A 1,000 ML IV ONE (09:32)
[2024-10-07] MEDS: PIPERACILLIN/TAZOBACTAM 4.5 GM/100 ML BAG IV STA (09:34)
[2024-10-07 09:39] LABS: Hematocrit (blood only) 35.3 % (42.0-52.0); Hemoglobin 11.8 g/dl (14.0-18.0); Immature Granulocytes # (auto) 0.06 K/uL (0.01-0.20); Immature Granulocytes % (auto) 0.5 %; Mean Corpuscular Hemoglobin 29.2 pg (25.0-34.0); Mean Corpuscular Volume 87.4 fL (80.0-100.0); Platelet Count 260 K/uL (130-400); RDW Standard Deviation 48.1 fL (36.4-46.3); Red Blood Count 4.04 M/uL (4.70-6.10); White Blood Count 12.35 K/ul (4.8-10.8)
[2024-10-07] MEDS: ACETAMINOPHEN 1,000 MG/100 ML VIAL IV STA (09:40)
--- NOTE | 2024-10-07 09:45 | XRay Report ---
XR chest 1V portable CLINICAL HISTORY: Sepsis COMPARISON STUDY: None FINDINGS: There is mild cardiomegaly without pulmonary vascular congestion. No consolidation or pleur al effusion. No pneumothorax. IMPRESSION: No acute findings. ACT 112: Negative or not required by law. Electronically signed by: Yovany Ortiz M.D. 10/07/2024 9:44 AM
[2024-10-07 09:55] LABS: Anion Gap 10 (3-11); Blood Urea Nitrogen 13 mg/dl (6-23); Calcium 9.3 mg/dl (8.6-10.3); Carbon Dioxide 27 mmol/L (21-32); Chloride 100 mmol/L (98-107); Creatinine Clr Calc Pharmacy 95.4 ml/min; Glucose 116 mg/dl (70-99(Fasting)); Potassium 3.4 mmol/L (3.5-5.1); Sodium 137 mmol/L (136-145)
[2024-10-07 09:56] LABS: Alanine Aminotransferase < 3 U/L (7-52); Alkaline Phosphatase 77 U/L (34-104); Bilirubin,Total 0.7 mg/dl (0.2-1.0); Magnesium 1.1 mg/dl (1.7-2.4); Total Protein 8.4 gm/dl (6.0-8.3)
--- NOTE | 2024-10-07 09:58 | Emergency Department Note ---
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 Patient is accompanied by facility staff members who provide additional history. Reported prehospital vitals include a fever of 101.3 F. Pulse in the 90s. Blood pressure 126/60. Glucose was reported at 132. Patient had hemodynamic instability at his facility and was sent into the emergency department for fever and tachycardia. It was reported that the patient possibly had a syncopal episode as well. Patient does endorse a cough. Patient states he has myalgias and arthralgias. Patient states he feels very weak. He reports significant fatigue and malaise. They deny fever or chills. No cough or congestion. Denies chest pain or palpitations. No shortness of breath. They deny abdominal pain, nausea and vomiting. No urinary complaints. No recent changes in bowel movements. Patient denies recent changes in medications or OTC supplements. Patient offers no other complaints, today. ADDITIONAL HISTORY OBTAINED: Per HPI Chronic Medical/Social Conditions Affecting Care: Per HPI PAST MEDICAL HISTORY: See Below PAST SURGICAL HISTORY: See Below FAMILY HISTORY: See Below SOCIAL HISTORY: See Below HOME MEDICATIONS: See Below ALLERGIES: See Below VITALS: See Below PHYSICAL EXAMINATION: GENERAL: Sitting up in bed, alert, well appearing, well nourished, no distress, non-toxic EYE EXAM: normal conjunctiva. PERRL and EOM's grossly intact. OROPHARYNX: no exudate, no erythema, lips, buccal mucosa, and tongue normal and mucous membranes are dry NECK: supple, no nuchal rigidity, no adenopathy, non-tender LUNGS: Clear to auscultation. Normal chest wall mechanics HEART: no murmurs, tachycardic rate, regular rhythm ABDOMEN: abdomen soft, non-tender, no masses, no rebound or guarding. BACK: Back is symmetrical on inspection and there is no deformity, no midline tenderness, no CVA tenderness. SKIN: no rashes and no bruising UPPER EXTREMITIES: upper extremities are grossly normal. LOWER EXTREMITIES: No pitting edema. Infected RLE with erythema and warmth. Distal ulceration noted. No crepitus Or fluctuance. NEURO EXAM: Normal sensorium, GCS 15, normal speech, no gross weakness of arms, no gross weakness of legs. MEDICAL DECISION MAKING: Differential diagnoses includes but not limited to Sepsis, bacteremia, necrotizing fasciitis, cellulitis, venous stasis ulcer, viral URI, pneumonia, UTI, electrolyte derangements, dehydration In summary, this is a 69 year old male who presented with fever. Differential as above. Nursing notes and pertinent past medical records reviewed. Vital signs reviewed and the patient is borderline febrile, tachycardic and hypertensive. He is otherwise hemodynamically stable. The patient appears dry on exam and generalized ill. The patient has no acute respiratory distress or respiratory symptoms at this time. History and presentation revealed this is an elderly gentleman with significant comorbidities as well as incarceration status presenting for vital signs that are consistent with sepsis. Patient meets SIRS criteria based on outpatient reports. Plan for sepsis alert. Will begin IV fluid resuscitation and broad-spectrum antibiotics. Will provide Zosyn as the patient appears to have a lower extremity infection. Doubt necrotizing fasciitis but believe this likely consistent with cellulitis. Could have an abscess or osteomyelitis as well. Plan for IV fluid resuscitation as well as IV Tylenol for antipyretic. Diagnostics interpreted by me include EKG and cardiac monitoring as listed below: -Cardiac Monitoring: An order was placed for continuous cardiac monitoring. The monitor shows a rate of 80-100s with regular rhythm. -ECG: EKG independently interpreted by me reveals normal sinus rhythm at a ventricular rate of [address] segment changes stress STEMI. There is a very poor baseline on this EKG. Patient completed laboratory studies and imaging. Results independently interpreted by me are a leukocytosis. Does have mild anemia. Mild hypokalemia present. CXR independently interpreted by me reveals no evidence of focal consolidation to suggest pna. No large pneumothorax or pleural effusion. The patient was managed with Plasma-Lyte IV Zosyn. We did obtain CT imaging of the lower extremity that was consistent with cellulitis as provide independent review. No abscess or evidence of osteomyelitis. Patient does not have necrotizing fasciitis. Patient's lab work showed a normal procalcitonin. INR was slightly elevated 3.1 in the setting of anticoagulation. Patient did not have evidence of urinary tract infection on urinalysis. RVP was also negative. There were no findings to suggest viral URI or pneumonia. Ultimately, the decision was made to admit the patient for sepsis 2/2 RLE cellulitis. I discussed the case with the hospitalist service via telephone/TigerText and they are agreeable to admit the patient to their services. Based on the above, including the patient's age, coexisting illnesses, labs, imaging, and exam findings the decision to treat as an inpatient. I discussed the patient with the hospitalist team who recommended admission to their services. They received the medications, treatments, interventions indicated above and their condition remained stable but guarded. I discussed my findings with the patient and their family and they understand and agree with the treatment plan. All patient / family questions were answered to their satisfaction. Consults/Care Managements Discussions: Per [facility] [place] [facility] treatment provided: See above Procedures:none Critical Care: None The chart was completed utilizing [employer] Speech voice recognition software. Grammatical errors, random word insertions, pronoun errors, and incomplete sentences are an occasional consequence of this system due to software limitations, ambient noise, and hardware issues. Any formal questions or concerns about the content, text, or information contained within the body of this dictation should be directly addressed to the physician for clarification. Past Med/Surg History Problem List (Updated 10/10/24 @ 13:17 by Jefferson Mora DO) Venous stasis ulcer (Acute) Hypokalemia (Acute) Sepsis (Acute) Abnormal finding on imaging Venous ulcer of right leg Peripheral vascular disease DVT (deep venous thrombosis) (Acute) Diabetes mellitus (Acute) Cellulitis of right lower extremity (Acute) Deep vein thrombosis Hypertension Hyperlipidemia Acid reflux Asthma Diabetes mellitus, type 2 Encounter for pre-operative examination Surgical History History of vein stripping (~1989) right LE History of right inguinal hernia repair Family History Other Family history unknown Social History Smoking Status: Former smoker Hx Alcohol Use: No Hx Substance Use: No Preferred Language: Bermudian Communication Ability: Effective Rn Intake Required: No Beliefs That Will Affect Care: None marital status: Single Current Living Situation: Other Current Living Situation Comment: inmate Feels Safe at Home: Yes Assistive Devices: Denture - Upper, Denture - Lower, Glasses and Hearing Aid - Right Allergies Allergies Allergy/AdvReac Type Severity Reaction Status Date / Time iodine Allergy Mild hives, sob Verified 10/07/24 11:43 clindamycin Allergy Unknown Unknown - Unverified 10/07/24 11:43 On file w/ [facility] paroxetine [From Paxil] Allergy Unknown Unknown - Unverified 10/07/24 11:43 On file w/ [facility] bauer Allergy Verified 10/08/24 13:45 peach Allergy Verified 10/08/24 13:45 plum Allergy Verified 10/08/24 13:45 Home Meds Home Medications Medication Instructions Recorded Confirmed ciclesonide 160 mcg/actuation 1 puff inhalation BID 12/15/20 10/07/24 aerosol inhaler (Alvesco) pantoprazole 40 mg tablet,delayed 40 mg PO QAM 12/15/20 10/07/24 release pentoxifylline 400 mg 400 mg PO TID 12/15/20 10/07/24 tablet,extended release salmeterol 50 mcg/dose blister 1 inh inhalation DAILY PRN 09/12/22 10/07/24 powder for inhalation (Serevent Shortness Of Breath Diskus) acetaminophen 500 mg tablet 1,000 mg PO BID 10/07/24 10/07/24 (Tylenol Extra Strength) albuterol sulfate 90 mcg/actuation 2 puff inhalation QID PRN 10/07/24 10/07/24 aerosol inhaler Shortness Of Breath amlodipine 5 mg tablet 5 mg PO DAILY 10/07/24 10/07/24 insulin glargine-yfgn 100 unit/mL 16 unit subcut DAILY 10/07/24 10/07/24 (3 mL) subcutaneous pen (Semglee (insulin glargine-yfgn) Pen) insulin regular human 100 unit/mL 1 sliding scale dose subcut 10/07/24 10/07/24 (3 mL) subcutaneous pen (Novolin R USEASDIRECTD FlexPen) mineral oil-hydrophil petrolat 1 applic topical BID 10/07/24 10/07/24 topical ointment mirtazapine 15 mg tablet 15 mg PO HS 10/07/24 10/07/24 sodium chloride 5 % eye drops 1 drp OPR TID 10/07/24 10/07/24 (Carmen 128) Results & Data (ED) Vital Signs Vital Signs - 24 hr 10/07/24 09:03 10/07/24 09:27 10/07/24 09:29 Temperature 37.7 C H Temperature Source Temporal Artery Scan Pulse Rate 100 H 95 H 94 H Pulse Rate [Apical] Pulse Rate from SpO2 Sensor 95 H Respiratory Rate 20 25 H Respiratory Effort / Characteristics Non-Labored Spontaneous Respiratory Depth Normal Respiratory Pattern Regular Blood Pressure 168/77 H Blood Pressure [Right Arm] Blood Pressure Mean 107 Blood Pressure Mean [Right Arm] Blood Pressure Position Sitting Pulse Oximetry 96 95 Oxygen Delivery Method Room Air Sepsis Recent Fever Within 48 Hours Yes Sepsis New/Unexplained Change in Mental Status N/A Sepsis Action Taken by Nursing No Action Required 10/07/24 09:30 10/07/24 09:30 10/07/24 09:33 Temperature Temperature Source Pulse Rate 95 H 94 H Pulse Rate [Apical] Pulse Rate from SpO2 Sensor 89 Respiratory Rate 22 30 H Respiratory Effort / Characteristics Respiratory Depth Respiratory Pattern Blood Pressure 151/75 H Blood Pressure [Right Arm] Blood Pressure Mean 101 Blood Pressure Mean [Right Arm] Blood Pressure Position Pulse Oximetry 95 94 Oxygen Delivery Method Room Air Room Air Sepsis Recent Fever Within 48 Hours Sepsis New/Unexplained Change in Mental Status Sepsis Action Taken by Nursing 10/07/24 09:35 10/07/24 09:45 10/07/24 10:00 Temperature 39.4 C H Temperature Source Oral Pulse Rate 95 H 94 H Pulse Rate [Apical] Pulse Rate from SpO2 Sensor 95 H 94 H Respiratory Rate 27 H 25 H Respiratory Effort / Characteristics Respiratory Depth Respiratory Pattern Blood Pressure 161/74 H Blood Pressure [Right Arm] Blood Pressure Mean 103 Blood Pressure Mean [Right Arm] Blood Pressure Position Pulse Oximetry 92 93 Oxygen Delivery Method Room Air Room Air Sepsis Recent Fever Within 48 Hours Sepsis New/Unexplained Change in Mental Status Sepsis Action Taken by Nursing 10/07/24 10:30 10/07/24 10:49 10/07/24 11:00 Temperature 38.7 C H Temperature Source Oral Pulse Rate Pulse Rate [Apical] 96 H 91 H Pulse Rate from SpO2 Sensor Respiratory Rate 14 18 Respiratory Effort / Characteristics Respiratory Depth Respiratory Pattern Blood Pressure Blood Pressure [Right Arm] 156/73 H 165/78 H Blood Pressure Mean Blood Pressure Mean [Right Arm] 100 107 Blood Pressure Position Pulse Oximetry 92 93 Oxygen Delivery Method Room Air Room Air Sepsis Recent Fever Within 48 Hours Sepsis New/Unexplained Change in Mental Status Sepsis Action Taken by Nursing 10/07/24 11:03 10/07/24 11:15 10/07/24 11:51 Temperature Temperature Source Pulse Rate 88 90 81 Pulse Rate [Apical] Pulse Rate from SpO2 Sensor 89 91 H 81 Respiratory Rate 17 27 H 19 Respiratory Effort / Characteristics Respiratory Depth Respiratory Pattern Blood Pressure Blood Pressure [Right Arm] Blood Pressure Mean Blood Pressure Mean [Right Arm] Blood Pressure Position Pulse Oximetry 96 94 92 Oxygen Delivery Method Sepsis Recent Fever Within 48 Hours Sepsis New/Unexplained Change in Mental Status Sepsis Action Taken by Nursing 10/07/24 12:00 10/07/24 12:24 10/07/24 12:30 Temperature Temperature Source Pulse Rate 78 85 Pulse Rate [Apical] Pulse Rate from SpO2 Sensor 77 85 Respiratory Rate 18 23 Respiratory Effort / Characteristics Respiratory Depth Respiratory Pattern Blood Pressure 152/73 H 151/69 H Blood Pressure [Right Arm] Blood Pressure Mean 99 103 Blood Pressure Mean [Right Arm] Blood Pressure Position Pulse Oximetry 94 94 Oxygen Delivery Method Room Air Sepsis Recent Fever Within 48 Hours Sepsis New/Unexplained Change in Mental Status Sepsis Action Taken by Nursing 10/07/24 12:30 10/07/24 12:54 10/07/24 12:57 Temperature 37.0 C Temperature Source Oral Pulse Rate 84 80 Pulse Rate [Apical] Pulse Rate from SpO2 Sensor 86 80 Respiratory Rate 15 20 Respiratory Effort / Characteristics Respiratory Depth Respiratory Pattern Blood Pressure Blood Pressure [Right Arm] Blood Pressure Mean Blood Pressure Mean [Right Arm] Blood Pressure Position Pulse Oximetry 93 96 Oxygen Delivery Method Room Air Room Air Sepsis Recent Fever Within 48 Hours Sepsis New/Unexplained Change in Mental Status Sepsis Action Taken by Nursing Laboratory Data 10/10/24 05:44 10/10/24 05:44 Lab Results 10/07/24 10/07/24 10/07/24 Range/Units 09:18 09:26 09:30 WBC 12.35 H (4.8-10.8) K/ul RBC 4.04 L (4.70-6.10) M/uL Hgb 11.8 L (14.0-18.0) g/dl Hct 35.3 L (42.0-52.0) % MCV 87.4 (80.0-100.0) fL MCH 29.2 (25.0-34.0) pg MCHC 33.4 (32.0-36.0) g/dL RDW Std Deviation 48.1 H (36.4-46.3) fL RDW Coeff of John 14.9 H (11.5-14.5) % Plt Count 260 (130-400) K/uL MPV 8.7 L (9.4-12.4) fL Immature Gran % (Auto) 0.5 % Neut % (Auto) 88.2 % Lymph % (Auto) 4.5 % [place] % (Auto) 5.5 % Eos % (Auto) 1.1 % Baso % (Auto) 0.2 % Neut # (Auto) 10.88 H (1.40-6.50) K/uL Lymph # (Auto) 0.56 L (1.20-3.40) K/uL [place] # (Auto) 0.68 H (0.11-0.59) K/uL Eos # (Auto) 0.14 (0.00-0.50) K/uL Baso # (Auto) 0.03 (0.00-0.20) K/uL Immature Gran # (Auto) 0.06 (0.01-0.20) K/uL PT 30.5 H (9.0-12.0) Seconds INR 3.1 H (0.9-1.1) APTT 41 H (21-31) Seconds PTT Ratio 1.5 VBG pH 7.44 H (7.36-7.41) VBG pCO2 41 (38-50) mmHg VBG pO2 35 mmHg VBG HCO3 28 mmol/L VBG O2 Saturation 62.3 % VBG Base Excess 3.3 mEq/L Sodium 137 (136-145) mmol/L Potassium 3.4 L (3.5-5.1) mmol/L Chloride 100 (98-107) mmol/L Carbon Dioxide 27 (21-32) mmol/L Anion Gap 10 (3-11) BUN 13 (6-23) mg/dl Creatinine 0.97 (0.6-1.4) mg/dl Est Cr Clr Drug Dosing 95.4 ml/min eGFR 84.50 BUN/Creatinine Ratio 13.4 (10-20) Glucose 116 H (70-99(Fasting)) mg/dl Lactate 1.1 (0.4-2.0) mmol/L Calcium 9.3 (8.6-10.3) mg/dl Magnesium 1.1 L (1.7-2.4) mg/dl Total Bilirubin 0.7 (0.2-1.0) mg/dl Direct Bilirubin 0.2 (0-0.2) mg/dl AST 23 (13-39) U/L ALT < 3 L (7-52) U/L Alkaline Phosphatase 77 (34-104) U/L Troponin I High Sens 18.3 (0-20) pg/ml Total Protein 8.4 H (6.0-8.3) gm/dl Albumin 3.8 (3.4-5.0) gm/dl Procalcitonin 0.49 (0-0.5) ng/ml Urine Color Urine Appearance (Clear) Urine pH (4.5-7.5) Ur Specific [place] (1.000-1.030) Urine Protein (Negative) Urine Glucose (UA) (Negative) Urine Ketones (Negative) Urine Blood (Negative) Urine Nitrite (Negative) Urine Bilirubin (Negative) Urine Urobilinogen (Negative) Ur Leukocyte Esterase (Negative) Urine WBC (Auto) (0-5) /hpf Urine RBC (Auto) (0-2) /hpf U Hyaline Cast (Auto) (0-2) /lpf U Epithel Cells (Auto) (0-2) /hpf Urine Bacteria (Auto) (None Seen) Urine Comment Nasal Screen MRSA (PCR) Negative (Negative) Adenovirus (PCR) Not Detected (NotDetected) B. pertussis DNA (PCR) Not Detected (NotDetected) B.parapertussis DNA PCR Not Detected (NotDetected) C. pneumoniae DNA (PCR) Not Detected (NotDetected) Coronavirus OC43 (PCR) Not Detected (NotDetected) Coronavirus HKU1 (PCR) Not Detected (NotDetected) Coronavirus 229E (PCR) Not Detected (NotDetected) SARS-CoV-2 (PCR) Not Detected (NotDetected) Coronavirus NL63 (PCR) Not Detected (NotDetected) Human Metapneumovir PCR Not Detected (NotDetected) Influenza Type A (PCR) Not Detected (NotDetected) Influenza Type B (PCR) Not Detected (NotDetected) M. pneumoniae (PCR) Not Detected (NotDetected) Parainfluenza 1 (PCR) Not Detected (NotDetected) Parainfluenza 2 (PCR) Not Detected (NotDetected) Parainfluenza 3 (PCR) Not Detected (NotDetected) Parainfluenza 4 (PCR) Not Detected (NotDetected) RSV (PCR) Not Detected (NotDetected) Entero/Rhino (PCR) Not Detected (NotDetected) 10/07/24 Range/Units 10:45 WBC (4.8-10.8) K/ul RBC (4.70-6.10) M/uL Hgb (14.0-18.0) g/dl Hct (42.0-52.0) % MCV (80.0-100.0) fL MCH (25.0-34.0) pg MCHC (32.0-36.0) g/dL RDW Std Deviation (36.4-46.3) fL RDW Coeff of John (11.5-14.5) % Plt Count (130-400) K/uL MPV (9.4-12.4) fL Immature Gran % (Auto) % Neut % (Auto) % Lymph % (Auto) % [place] % (Auto) % Eos % (Auto) % Baso % (Auto) % Neut # (Auto) (1.40-6.50) K/uL Lymph # (Auto) (1.20-3.40) K/uL [place] # (Auto) (0.11-0.59) K/uL Eos # (Auto) (0.00-0.50) K/uL Baso # (Auto) (0.00-0.20) K/uL Immature Gran # (Auto) (0.01-0.20) K/uL PT (9.0-12.0) Seconds INR (0.9-1.1) APTT (21-31) Seconds PTT Ratio VBG pH (7.36-7.41) VBG pCO2 (38-50) mmHg VBG pO2 mmHg VBG HCO3 mmol/L VBG O2 Saturation % VBG Base Excess mEq/L Sodium (136-145) mmol/L Potassium (3.5-5.1) mmol/L Chloride (98-107) mmol/L Carbon Dioxide (21-32) mmol/L Anion Gap (3-11) BUN (6-23) mg/dl Creatinine (0.6-1.4) mg/dl Est Cr Clr Drug Dosing ml/min eGFR BUN/Creatinine Ratio (10-20) Glucose (70-99(Fasting)) mg/dl Lactate (0.4-2.0) mmol/L Calcium (8.6-10.3) mg/dl Magnesium (1.7-2.4) mg/dl Total Bilirubin (0.2-1.0) mg/dl Direct Bilirubin (0-0.2) mg/dl AST (13-39) U/L ALT (7-52) U/L Alkaline Phosphatase (34-104) U/L Troponin I High Sens (0-20) pg/ml Total Protein (6.0-8.3) gm/dl Albumin (3.4-5.0) gm/dl Procalcitonin (0-0.5) ng/ml Urine Color Yellow Urine Appearance Clear (Clear) Urine pH 6.5 (4.5-7.5) Ur Specific [place] 1.013 (1.000-1.030) Urine Protein 2+ H (Negative) Urine Glucose (UA) Negative (Negative) Urine Ketones Negative (Negative) Urine Blood 3+ H (Negative) Urine Nitrite Negative (Negative) Urine Bilirubin Negative (Negative) Urine Urobilinogen Negative (Negative) Ur Leukocyte Esterase Negative (Negative) Urine WBC (Auto) 0-5 (0-5) /hpf Urine RBC (Auto) >20 H (0-2) /hpf U Hyaline Cast (Auto) 3-5 H (0-2) /lpf U Epithel Cells (Auto) 0-2 (0-2) /hpf Urine Bacteria (Auto) None Seen (None Seen) Urine Comment Nasal Screen MRSA (PCR) (Negative) Adenovirus (PCR) (NotDetected) B. pertussis DNA (PCR) (NotDetected) B.parapertussis DNA PCR (NotDetected) C. pneumoniae DNA (PCR) (NotDetected) Coronavirus OC43 (PCR) (NotDetected) Coronavirus HKU1 (PCR) (NotDetected) Coronavirus 229E (PCR) (NotDetected) SARS-CoV-2 (PCR) (NotDetected) Coronavirus NL63 (PCR) (NotDetected) Human Metapneumovir PCR (NotDetected) Influenza Type A (PCR) (NotDetected) Influenza Type B (PCR) (NotDetected) M. pneumoniae (PCR) (NotDetected) Parainfluenza 1 (PCR) (NotDetected) Parainfluenza 2 (PCR) (NotDetected) Parainfluenza 3 (PCR) (NotDetected) Parainfluenza 4 (PCR) (NotDetected) RSV (PCR) (NotDetected) Entero/Rhino (PCR) (NotDetected) Administered Medications Acetaminophen (Acetaminophen 325 Mg Tab) 650 mg PO QID [facility] Stop: 11/06/24 16:59 Last Admin: 10/10/24 12:13 Dose: 650 mg Documented By: Admin: 10/10/24 08:26 Dose: 650 mg Documented By: Admin: 10/09/24 21:11 Dose: 650 mg Documented By: Admin: 10/09/24 16:49 Dose: 650 mg Documented By: Admin: 10/09/24 12:57 Dose: 650 mg Documented By: Admin: 10/09/24 08:14 Dose: 650 mg Documented By: Admin: 10/08/24 20:53 Dose: 650 mg Documented By: Admin: 10/08/24 17:29 Dose: 650 mg Documented By: Admin: 10/08/24 13:20 Dose: 650 mg Documented By: Admin: 10/08/24 09:22 Dose: 650 mg Documented By: Admin: 10/07/24 21:31 Dose: 650 mg Documented By: Admin: 10/07/24 17:16 Dose: 650 mg Documented By: MARIAH Amlodipine Besylate (Amlodipine Besylate 5 Mg Tab) 5 mg PO DAILY [facility] Stop: 11/07/24 08:59 Last Admin: 10/10/24 08:19 Dose: 5 mg Documented By: Admin: 10/09/24 08:16 Dose: 5 mg Documented By: Admin: 10/08/24 09:14 Dose: 5 mg Documented By: CATY Emollient Ointment (Petrolatum 16 Oz Jar) 1 oz EXT BID [facility] Stop: 11/06/24 20:59 Last Admin: 10/10/24 08:20 Dose: 1 oz Documented By: Admin: 10/09/24 21:13 Dose: 1 oz Documented By: Admin: 10/09/24 08:17 Dose: 1 oz Documented By: Admin: 10/08/24 20:58 Dose: 1 oz Documented By: Admin: 10/08/24 09:16 Dose: 1 oz Documented By: Admin: 10/07/24 21:31 Dose: 1 oz Documented By: MAJO Enoxaparin Sodium (Enoxaparin Inj 40 Mg/0.4 Ml Syr) 40 mg SQ QAM [facility] Stop: 11/07/24 08:59 Last Admin: 10/10/24 08:20 Dose: 40 mg Documented By: Admin: 10/09/24 08:16 Dose: 40 mg Documented By: Admin: 10/08/24 09:22 Dose: 40 mg Documented By: CATY Fluticasone Furoate (Fluticasone Furoate 200mcg 14 Puffs/Inhaler) 1 puffs INH HS [facility] Stop: 11/06/24 20:59 Last Admin: 10/09/24 21:12 Dose: 1 puffs Documented By: Admin: 10/08/24 20:53 Dose: 1 puffs Documented By: Admin: 10/07/24 21:31 Dose: 1 puffs Documented By: MAJO Piperacillin Sod/Tazobactam Sod (Zosyn) 4.5 gm in 100 mls @ 25 mls/hr IV Q8H [facility]; Protocol Stop: 10/14/24 17:29 Last Infusion: 10/10/24 12:25 Dose: Infused Documented By: Admin: 10/10/24 08:21 Dose: 25 mls/hr Documented By: Infusion: 10/10/24 06:38 Dose: Infused Documented By: Admin: 10/10/24 02:25 Dose: 25 mls/hr Documented By: Infusion: 10/09/24 20:43 Dose: Infused Documented By: Admin: 10/09/24 16:49 Dose: 25 mls/hr Documented By: Infusion: 10/09/24 12:30 Dose: Infused Documented By: Admin: 10/09/24 08:27 Dose: 25 mls/hr Documented By: Infusion: 10/09/24 06:49 Dose: Infused Documented By: halie Admin: 10/09/24 02:26 Dose: 25 mls/hr Documented By: halie Infusion: 10/08/24 21:56 Dose: Infused Documented By: Admin: 10/08/24 17:29 Dose: 25 mls/hr Documented By: Infusion: 10/08/24 13:36 Dose: Infused Documented By: Admin: 10/08/24 09:15 Dose: 25 mls/hr Documented By: Infusion: 10/08/24 05:56 Dose: Infused Documented By: Admin: 10/08/24 02:00 Dose: 25 mls/hr Documented By: Infusion: 10/07/24 21:20 Dose: Infused Documented By: Admin: 10/07/24 17:17 Dose: 25 mls/hr Documented By: MARIAH Vancomycin HCl 1,500 mg/ (Sodium Chloride) 530 mls @ 200 mls/hr IV Q12H [facility] Stop: 10/15/24 11:59 Last Admin: 10/10/24 12:06 Dose: 200 mls/hr Documented By: Infusion: 10/10/24 01:50 Dose: Infused Documented By: Admin: 10/09/24 23:11 Dose: 200 mls/hr Documented By: Infusion: 10/09/24 16:04 Dose: Infused Documented By: Admin: 10/09/24 12:57 Dose: 200 mls/hr Documented By: CATY Insulin Aspart (Insulin Aspart Per Unit Charge) 0 units SC ACHS [facility] Stop: 11/06/24 13:49 Last Admin: 10/10/24 12:09 Dose: 3 units Documented By: PAULINO Co-signed By: NORBERT Admin: 10/10/24 08:22 Dose: 3 units Documented By: PAULINO Co-signed By: SHEILA Admin: 10/09/24 20:39 Dose: Not Given Documented By: Admin: 10/09/24 16:50 Dose: 4 units Documented By: CATY Co-signed By: SHEILA Admin: 10/09/24 12:27 Dose: 4 units Documented By: CATY Co-signed By: ZOË Admin: 10/09/24 08:08 Dose: 2 units Documented By: CATY Co-signed By: ZOË Admin: 10/08/24 20:54 Dose: Not Given Documented By: RITA Co-signed By: halie Admin: 10/08/24 17:10 Dose: 3 units Documented By: CATY Co-signed By: DILLON Admin: 10/08/24 13:20 Dose: 1 units Documented By: CATY Co-signed By: HRNash Admin: 10/08/24 08:52 Dose: 3 units Documented By: CATY Co-signed By: ZOË Admin: 10/07/24 21:40 Dose: Not Given Documented By: Admin: 10/07/24 17:18 Dose: 1 units Documented By: MARIAH Co-signed By: RACHEL Admin: 10/07/24 15:34 Dose: Not Given Documented By: MARIAH Insulin Glargine (Lantus Per Unit Charge) 0 units SC [facility]; Protocol Stop: 11/06/24 20:59 Last Admin: 10/09/24 20:39 Dose: Not Given Documented By: Admin: 10/08/24 20:54 Dose: Not Given Documented By: Admin: 10/07/24 21:40 Dose: Not Given Documented By: MAJO Mirtazapine (Mirtazapine Tab 15 Mg Tab) 15 mg PO [facility] Stop: 11/06/24 20:59 Last Admin: 10/09/24 21:12 Dose: 15 mg Documented By: Admin: 10/08/24 20:55 Dose: 15 mg Documented By: Admin: 10/07/24 21:31 Dose: 15 mg Documented By: MAJO Pantoprazole Sodium (Pantoprazole 40 Mg Tab) [facility] [place] Stop: 11/07/24 08:59 Last Admin: 10/10/24 08:19 Dose: 40 mg Documented By: Admin: 10/09/24 08:16 Dose: 40 mg Documented By: Admin: 10/08/24 09:14 Dose: 40 mg Documented By: CATY Pentoxifylline (Pentoxifylline 400mg Ext Rel Tab) 400 mg PO TID [facility] Stop: 11/06/24 15:29 Last Admin: 10/10/24 08:19 Dose: 400 mg Documented By: Admin: 10/09/24 21:13 Dose: 400 mg Documented By: Admin: 10/09/24 12:57 Dose: 400 mg Documented By: Admin: 10/09/24 08:16 Dose: 400 mg Documented By: Admin: 10/08/24 20:55 Dose: 400 mg Documented By: Admin: 10/08/24 13:20 Dose: 400 mg Documented By: Admin: 10/08/24 09:14 Dose: 400 mg Documented By: [facility] Admin: 10/07/24 21:31 Dose: 400 mg Documented By: [facility] Admin: 10/07/24 16:38 Dose: 400 mg Documented By: MARIAH Sodium Chloride (Sodium Chloride 5% Op Soln 15 Ml Btl) 1 drops OPR TID [facility] Stop: 11/06/24 13:59 Last Admin: 10/10/24 08:21 Dose: Not Given Documented By: Admin: 10/09/24 21:13 Dose: Not Given Documented By: Admin: 10/09/24 12:57 Dose: Not Given Documented By: [facility] Admin: 10/09/24 08:10 Dose: Not Given Documented By: [facility] Admin: 10/08/24 20:56 Dose: Not Given Documented By: Admin: 10/08/24 13:20 Dose: Not Given Documented By: [facility] Admin: 10/08/24 09:15 Dose: 1 drops Documented By: [facility] Admin: 10/07/24 21:31 Dose: 1 drops Documented By: [facility] Admin: 10/07/24 16:38 Dose: Not Given Documented By: MARIAH Warfarin Sodium (Warfarin Sod 10 Mg Tab) 10 mg PO DAILY@1600 [facility] Stop: 11/08/24 15:59 Last Admin: 10/09/24 16:48 Dose: 10 mg Documented By: ERICA Warfarin Sodium (Warfarin Sod 3 Mg Tab) 3 mg PO DAILY@1600 [facility] Stop: 11/08/24 15:59 Last Admin: 10/09/24 16:49 Dose: 3 mg Documented By: ERICA Warfarin Sodium (Warfarin Sod 0.5 Mg Tab) 0.5 mg PO DAILY@1600 [facility] Stop: 11/08/24 15:59 Last Admin: 10/09/24 16:49 Dose: 0.5 mg Documented By: CATY Discontinued Medications Piperacillin Sod/Tazobactam Sod (Zosyn) 4.5 gm in 100 mls @ 200 mls/hr IV NOW STA Stop: 10/07/24 09:50 Last Infusion: 10/07/24 10:17 Dose: Infused Documented By: Admin: 10/07/24 09:34 Dose: 200 mls/hr Documented By: LOLAK Parenteral Electrolytes (Plasma-Lyte A Ph 7.4) 1,000 mls @ 999 mls/hr IV .Q1H1M ONE Stop: 10/07/24 10:21 Last Infusion: 10/07/24 10:33 Dose: Infused Documented By: Admin: 10/07/24 09:32 Dose: 999 mls/hr Documented By: GEOFF Acetaminophen (Ofirmev) 1,000 mg in 100 mls @ 400 mls/hr IV NOW STA Stop: 10/07/24 09:48 Last Infusion: 10/07/24 10:17 Dose: Infused Documented By: Admin: 10/07/24 09:40 Dose: 400 mls/hr Documented By: DANY Vancomycin HCl 2,250 mg/ (Sodium Chloride) 545 mls @ 200 mls/hr IV ONE ONE Stop: 10/07/24 19:43 Last Infusion: 10/07/24 21:12 Dose: Infused Documented By: Admin: 10/07/24 17:15 Dose: 200 mls/hr Documented By: MARIAH Vancomycin HCl 750 mg/ Sodium (Chloride) 265 mls @ 200 mls/hr IV Q8H [facility] Stop: 10/15/24 02:59 Last Admin: 10/09/24 12:00 Dose: Not Given Documented By: Infusion: 10/09/24 04:20 Dose: Infused Documented By: halie Admin: 10/09/24 02:37 Dose: 200 mls/hr Documented By: halie Infusion: 10/08/24 20:48 Dose: Infused Documented By: Admin: 10/08/24 18:46 Dose: 200 mls/hr Documented By: Infusion: 10/08/24 13:13 Dose: Infused Documented By: Admin: 10/08/24 11:36 Dose: 200 mls/hr Documented By: EDAgusto Infusion: 10/08/24 03:24 Dose: Infused Documented By: Admin: 10/08/24 01:59 Dose: 200 mls/hr Documented By: MAJO Insulin Glargine (Lantus Per Unit Charge) 16 units SC DAILY [facility] Stop: 11/06/24 13:49 Last Admin: 10/07/24 15:35 Dose: Not Given Documented By: MARIAH Ioversol (Optiray 320 100ml) 94 ml IV ONCE ONE Stop: 10/07/24 11:20 Last Admin: 10/07/24 11:19 Dose: 94 ml Documented By: EYAD Potassium Chloride (Potassium Chloride Crtab 20 Meq Tabcr) 40 meq PO NOW STA Stop: 10/08/24 12:38 Last Admin: 10/08/24 13:20 Dose: 40 meq Documented By: [facility] Imaging Data Radiologist's Impression: Chest X-Ray 10/07/24 09:21 XR chest 1V portable CLINICAL HISTORY: Sepsis COMPARISON STUDY: None FINDINGS: There is mild cardiomegaly without pulmonary vascular congestion. No consolidation or pleural effusion. No pneumothorax. IMPRESSION: No acute findings. ACT 112: Negative or not required by law. Electronically signed by: Yovany Ortiz M.D. 10/07/2024 9:[address] 10/07/24 10:53 CT foot RT w con CLINICAL HISTORY: concern for nec fas, celluliits, abscess, om COMPARISON STUDY: MRI of 02/26/2021 FINDINGS: There is soft tissue thickening at the ankle without evidence of drainable abscess or significant soft tissue hematoma. No evidence of osteomyelitis right foot. No fracture or dislocation seen. There are mild degenerative changes at the midfoot without erosions. IMPRESSION: No evidence of osteomyelitis seen. ACT 112: Negative or not required by law. Electronically signed by: Yovany Ortiz M.D. 10/07/2024 11:[address] 10/07/24 10:53 CT tib/fib RT w con HISTORY: 69 years-old Male concern for celluliits, nec fasc, abscess, om soft tissue infection of the right lower leg COMPARISON: Right foot CT same day TECHNIQUE: Multiple axial CT images of the right tibia and fibula were obtained with IV contrast. A dose lowering technique was used consistent with the principals of ALKA. FINDINGS: Moderate subcutaneous edema which is noted circumferentially and most pronounced within the lower leg, foot and ankle. Superficial venous varicosities are noted with arterial calcifications. Tendons and ligaments are not well evaluated by CT technique. There is irregular cutaneous thickening with cutaneous ulcer involving the medial aspect of the ankle. No drainable fluid collection. No definite soft tissue gas identified. Mildly demineralized appearance of the bones. Osteoarthritis of the knee, foot and ankle which is moderate within the medial compartment of the knee and also within the midfoot. No acute fracture, dislocation or osseous erosion. IMPRESSION: 1. Findings suggestive of cellulitis involving the lower leg and ankle with medial ankle cutaneous ulcer. 2. No abscess. 3. No CT evidence of acute osteomyelitis. 4. Superficial venous varicosities. ACT 112: Negative or not required by law. The above report was generated using voice recognition software. It may contain grammatical, syntax or spelling errors. Electronically signed by: Jose Champagne M.D. 10/07/2024 12:00 PM Discharge Plan Visit Data Chief Complaint: Infection Stated Complaint: INFECTION ED Provider: Cyrus Michel Discharge Problem: Cellulitis of right lower extremity, Sepsis, Hypokalemia, Venous stasis ulcer Patient Disposition: Admitted As Inpatient Condition: Fair Discharge Instructions Interventions: ED Discharge Assessment Last Done: 10/07/24 14:44
[2024-10-07 09:59] LABS: Base Excess VBG 3.3 mEq/L; HCO3 VBG 28 mmol/L; Oxygen Saturation VBG 62.3 %; PCO2 VBG 41 mmHg (38-50); PO2 VBG 35 mmHg; pH VBG 7.44 (7.36-7.41)
[2024-10-07 10:10] LABS: INR 3.1 (0.9-1.1); Partial Thromboplastin Time 41 Seconds (21-31); Prothrombin Time 30.5 Seconds (9.0-12.0)
[2024-10-07 10:37] LABS: Chlamydia pneumoniae PCR Not Detected (NotDetected); Coronavirus 229E PCR Not Detected (NotDetected); Coronavirus CoV-2 (COVID19)PCR Not Detected (NotDetected); Coronavirus HKU1 PCR Not Detected (NotDetected); Coronavirus NL63 PCR Not Detected (NotDetected); Coronavirus OC43PCR Not Detected (NotDetected); Human Metapneumovirus PCR Not Detected (NotDetected); Parainfluenza Virus 1 PCR Not Detected (NotDetected); Parainfluenza Virus 2 PCR Not Detected (NotDetected); Parainfluenza Virus 3 PCR Not Detected (NotDetected); Parainfluenza Virus 4 PCR Not Detected (NotDetected); Respiratory Syncytial VirusPCR Not Detected (NotDetected); Rhinovirus/Enterovirus PCR Not Detected (NotDetected)
--- NOTE | 2024-10-07 11:05 | Electrocardiogram Report ---
Test Reason : Blood Pressure : */* mmHG Vent. Rate : 95 BPM Atrial Rate : 95 BPM P-R Int : 146 ms QRS Dur : 102 ms QT Int : 350 ms P-R-T Axes : -14 -13 -60 degrees QTcB Int : 439 ms Poor data quality, interpretation may be adversely affected Normal sinus rhythm Moderate voltage criteria for LVH, may be normal variant Abnormal ECG No previous ECGs available Confirmed by Richard Coreas ([id number]) on 10/07/2024 11:05:22 AM Referred By: [facility] Confirmed By: Richard Coreas
[2024-10-07 11:09] LABS: Appearance Urine Clear (Clear); Bacteria Urine Automated None Seen (None Seen); Epithelial Cell Urine Auto 0-2 /hpf (0-2); Glucose Urine UA Negative (Negative); RBC Urine Automated >20 /hpf (0-2); WBC Urine Automated 0-5 /hpf (0-5)
[2024-10-07] MEDS: OPTIRAY 320 100ml IV ONE (11:19)
--- NOTE | 2024-10-07 11:58 | CT Scan Report ---
CT foot RT w con CLINICAL HISTORY: concern for nec fas, celluliits, abscess, om COMPARISON STUDY: MRI of 02/26/2021 FINDINGS: There is soft tissue thickening at the ankle without evidence of drainable abscess or signi ficant soft tissue hematoma. No evidence of osteomyelitis right foot. No fracture or dislocation seen . There are mild degenerative changes at the midfoot without erosions. IMPRESSION: No evidence of osteomyelitis seen. ACT 112: Negative or not required by law. Electronically signed by: Yovany Ortiz M.D. 10/07/2024 11:57 AM
--- NOTE | 2024-10-07 12:02 | CT Scan Report ---
CT tib/fib RT w con HISTORY: 69 years-old Male concern for celluliits, nec fasc, abscess, om soft tissue infection of th e right lower leg COMPARISON: Right foot CT same day TECHNIQUE: Multiple axial CT images of the right tibia and fibula were obtained with IV contrast. A d ose lowering technique was used consistent with the principals of ALKA. FINDINGS: Moderate subcutaneous edema which is noted circumferentially and most pronounced within the lower leg , foot and ankle. Superficial venous varicosities are noted with arterial calcifications. Tendons and ligaments are not well evaluated by CT technique. There is irregular cutaneous thickening with cutan eous ulcer involving the medial aspect of the ankle. No drainable fluid collection. No definite soft tissue gas identified. Mildly demineralized appearance of the bones. Osteoarthritis of the knee, foot and ankle which is mod erate within the medial compartment of the knee and also within the midfoot. No acute fracture, dislo cation or osseous erosion. IMPRESSION: 1. Findings suggestive of cellulitis involving the lower leg and ankle with medial ankle cutaneous ul cer. 2. No abscess. 3. No CT evidence of acute osteomyelitis. 4. Superficial venous varicosities. ACT 112: Negative or not required by law. The above report was generated using voice recognition software. It may contain grammatical, syntax o r spelling errors. Electronically signed by: Jose Champagne M.D. 10/07/2024 12:00 PM
[2024-10-07] MEDS ORDERED: ALBUTEROL HFA 8 GM INHALER INH PRN (13:05)
[2024-10-07] MEDS ORDERED: PHARMACY GLYCEMIC MGMT CONSULT PRN (13:06)
--- NOTE | 2024-10-07 13:52 | Pharmacy Report ---
Pharmacy Glycemic Short Note 2 - Date of Service October 07, 2024 - Glycemic Short BSG Results (Last 24 hours): 10/07/24 09:18 Glucose 116 H OUTPATIENT ANTIDIABETIC REGIMEN: * Semaglee - insulin glargine 16 units SC daily * Novolin R SSI * A1c 9.6% 02/22/21, updated A1c ordered ASSESSMENT: * 69 yo M admitted with infection, type 2 diabetic on basal bolus insulin, incarcerated at [facility]. * Will begin basal bolus insulin as inpatient and adjust as needed. PLAN FOR INPATIENT GLYCEMIC CONTROL: * Hold outpatient diabetes medications * Basal insulin * Lantus 16 units SQ daily starting now * Bolus insulin * NovoLog per scale ACHS or Q6hrs while NPO * Goal Range: Low 110 mg/dL - High 140 mg/dL * Correction Factor: 25 mg/dL/unit * Nutritional / Prandial insulin per carb ratio of 1 unit per 8 grams CHO consumed
[2024-10-07] MEDS ORDERED: CARBOHYDRATES FOR HYPOGLYCEMIA PO PRN (14:00)
[2024-10-07] MEDS ORDERED: GLUCAGON FOR INJ 1 MG VIAL SQ PRN (14:00)
[2024-10-07] MEDS ORDERED: DEXTROSE 50% 50 ML SYRINGE IV PRN (14:00)
[2024-10-07] MEDS ORDERED: GLUCOSE 10 TAB/TUBE PO PRN (14:00)
[2024-10-07] MEDS ORDERED: GLUCOSE 40% GEL 15 GM TUBE PO PRN (14:00)
[2024-10-07] MEDS ORDERED: OLODATEROL HCL 2.5MCG/ACTUATION 60 PUFFS/INHALER INH PRN (15:27)
[2024-10-07] MEDS: INSULIN ASPART PER UNIT CHARGE SC SCH (15:34)
[2024-10-07] MEDS: LANTUS PER UNIT CHARGE SC SCH ×2 (15:35→21:40)
[2024-10-07] MEDS: SODIUM CHLORIDE 5% OP SOLN 15 ML BTL OPR SCH (16:38)
[2024-10-07] MEDS: PENTOXIFYLLINE 400MG EXT REL TAB PO SCH (16:38)
[2024-10-07] MEDS ORDERED: VANCOMYCIN CONSULT ACTIVE PRN (16:51)
[2024-10-07] MEDS: VANCOMYCIN HCL 2,250 MG in SODIUM CHLORIDE 0.9% 500 ML IV ONE (17:15)
[2024-10-07] MEDS: ACETAMINOPHEN 325 MG TAB PO SCH (17:16)
[2024-10-07] MEDS: PIPERACILLIN/TAZOBACTAM 4.5 GM/100 ML BAG IV SCH (17:17)
[2024-10-07] MEDS ORDERED: ACETAMINOPHEN 500 MG TAB PO SCH (21:00)
[2024-10-07] MEDS: MIRTAZAPINE TAB 15 MG TAB PO SCH (21:31)
[2024-10-07] MEDS: PETROLATUM 16 OZ JAR EXT SCH (21:31)
[2024-10-07] MEDS: FLUTICASONE FUROATE 200MCG 14 PUFFS/INHALER INH SCH (21:31)
--- NOTE | 2024-10-07 22:34 | History & Physical Report ---
Date of Service October 07, 2024 Assessment & Plan (1) Venous ulcer of right leg: (2) Peripheral vascular disease: (3) Hypertension: (4) Hyperlipidemia: (5) Diabetes mellitus, type 2: Plan Sepsis in a 69 yo male with peripheral vascular disease, diabetes mellitius 2 Will admit to medical [facility] place on IV antibiotics: zosyn and vanco will consult wound care. obtain blood cultures Diabetes Mellitus 2: consulted glycemic control placed on carb coverage and long acting Hypertension Ordered home meds. History of DVT: on coumadin. will hold coumadin for now in case patient needs a procedure Admission and Anticipated Discharge Date Admission Date: October 07, 2024 History of Present Illness Chief Complaint: fall Primary Care Provider: APOLINAR Stark Patient is a 69 yo male with past medical history of chronic anticoagulation, type 2 diabetes. Patient is a poor historian. Patient reports while he was getting his blood sugar checked, he had a syncopal episode. Patient reports symptoms of generalized malaise. Patient denies have fever, chills. Denies any SOB, abdominal pain, nausea and vomiting. Patient was then placed in a wheel chair and brought to the hospital. Allergies Allergy/AdvReac Type Severity Reaction Status Date / Time iodine Allergy Mild hives, sob Verified 10/07/24 11:43 clindamycin Allergy Unknown Unknown - Unverified 10/07/24 11:43 On file w/ Vidimax Mi paroxetine [From Paxil] Allergy Unknown Unknown - Unverified 10/07/24 11:43 On file w/ Vidimax [facility] bauer Allergy Verified 10/08/24 13:45 peach Allergy Verified 10/08/24 13:45 plum Allergy Verified 10/08/24 13:45 Home Medications Medication Instructions Recorded Confirmed Type ciclesonide 160 mcg/actuation 1 puff inhalation BID 12/15/20 10/07/24 History aerosol inhaler (Alvesco) pantoprazole 40 mg tablet,delayed 40 mg PO QAM 12/15/20 10/07/24 History release pentoxifylline 400 mg 400 mg PO TID 12/15/20 10/07/24 History tablet,extended release salmeterol 50 mcg/dose blister 1 inh inhalation DAILY PRN 09/12/22 10/07/24 History powder for inhalation (Serevent Shortness Of Breath Diskus) acetaminophen 500 mg tablet 1,000 mg PO BID 10/07/24 10/07/24 History (Tylenol Extra Strength) albuterol sulfate 90 mcg/actuation 2 puff inhalation QID PRN 10/07/24 10/07/24 History aerosol inhaler Shortness Of Breath amlodipine 5 mg tablet 5 mg PO DAILY 10/07/24 10/07/24 History insulin glargine-yfgn 100 unit/mL 16 unit subcut DAILY 10/07/24 10/07/24 History (3 mL) subcutaneous pen (Semglee (insulin glargine-yfgn) Pen) insulin regular human 100 unit/mL 1 sliding scale dose subcut 10/07/24 10/07/24 History (3 mL) subcutaneous pen (Novolin R USEASDIRECTD FlexPen) mineral oil-hydrophil petrolat 1 applic topical BID 10/07/24 10/07/24 History topical ointment mirtazapine 15 mg tablet 15 mg PO HS 10/07/24 10/07/24 History sodium chloride 5 % eye drops 1 drp OPR TID 10/07/24 10/07/24 History (Carmen 128) Past Med/Surg History Problem List Venous ulcer of right leg Peripheral vascular disease DVT (deep venous thrombosis) (Acute) Diabetes mellitus (Acute) Cellulitis of right lower extremity (Acute) Deep vein thrombosis Hypertension Hyperlipidemia Acid reflux Asthma Diabetes mellitus, type 2 Encounter for pre-operative examination Surgical History History of vein stripping (~1989) right LE History of right inguinal hernia repair Family History Other Family history unknown Social History Smoking Status: Former smoker Hx Alcohol Use: No Hx Substance Use: No Preferred Language: Kinyarwanda Communication Ability: Effective Director Of Clinical Services Required: No Beliefs That Will Affect Care: None marital status: Single Current Living Situation: Other Current Living Situation Comment: inmate Feels Safe at Home: Yes Assistive Devices: Denture - Upper, Denture - Lower, Glasses and Hearing Aid - Right Review of Systems Constitutional: + weakness; no fever Eyes: no blind spots Ear, Nose, Mouth, Throat: no ear pain Respiratory: no cough and no dyspnea Cardiovascular: no chest pain Gastrointestinal: no abdominal pain Genitourinary: no dysuria Musculoskeletal: no back pain Integumentary: no acne Neurologic: no gait abnormality and no localized weakness Psychiatric: no behavioral changes Endocrine: no fatigue Hematologic / Lymphatic: no easy bleeding Allergy / Immunological: no GI upset with certain foods Physical Exam Constitutional: WD/WN, vitals as above Eyes: PERRL, conjunctivae normal, anicteric sclerae ENMT: external ear and nose normal, oropharynx normal Neck: trachea midline, no thyromegaly Respiratory: normal respiratory effort, lungs clear to auscultation Cardiovascular: RRR, no murmur, no edema Gastrointestinal (Abdomen): normal bowel sounds, soft, nontender, no hepatosplenomegaly Musculoskeletal: no cyanosis or clubbing, extremities motor strength 5/5 Skin: + skin tightening and + wound (right low er leg, with skin changes.) Neurologic: PERRL, EOMI, accommodation nl, no face palsy, no dysarthria Psychiatric: A+Ox3, euthymic affect Lymphatic: no cervical or axillary lymphadenopathy Results & Data Results & Data Vital Signs (Past 12 Hours) Vital Signs Temp Pulse Pulse Pulse Resp BP BP 10/07/24 21:36 39.1 C H 87 18 162/68 H 10/07/24 16:32 38.7 C H 91 H 16 159/68 H 10/07/24 14:44 76 19 10/07/24 13:34 77 10/07/24 13:20 76 17 155/78 H 10/07/24 12:57 37.0 C 10/07/24 12:54 80 20 10/07/24 12:30 84 15 10/07/24 12:30 151/69 H 10/07/24 12:24 85 23 10/07/24 12:00 78 18 152/73 H 10/07/24 11:51 81 19 10/07/24 11:15 90 27 H 10/07/24 11:03 88 17 10/07/24 11:00 91 H 18 165/78 H 10/07/24 10:49 38.7 C H Pulse Ox O2 Del Method 10/07/24 21:36 95 Room Air 10/07/24 16:32 94 Room Air 10/07/24 14:44 97 Room Air 10/07/24 13:34 10/07/24 13:20 94 Room Air 10/07/24 12:57 10/07/24 12:54 96 Room Air 10/07/24 12:30 93 Room Air 10/07/24 12:30 10/07/24 12:24 94 10/07/24 12:00 94 Room Air 10/07/24 11:51 92 10/07/24 11:15 94 10/07/24 11:03 96 10/07/24 11:00 93 Room Air 10/07/24 10:49 PG Care Time/CCT Total # of Minutes Spent Total Time Spent with Patient: Total time spent is greater than 50% in coordination of care (as documented) at patient's floor/unit and/or counseling patient: Coding Level of Care Code 91731 INT INP/OBS CARE 3/75MIN Diagnoses Venous ulcer of right leg I83.019; L97.919 Peripheral vascular disease I73.9 Hypertension I10 Hyperlipidemia E78.5 Diabetes mellitus, type 2 E11.9
[2024-10-08] MEDS: VANCOMYCIN 750 MG in SODIUM CHLORIDE 0.9% 250 ML IV SCH (01:59)
[2024-10-08 06:20] LABS: Hematocrit (blood only) 32.8 % (42.0-52.0); Hemoglobin 10.7 g/dl (14.0-18.0); Immature Granulocytes # (auto) 0.05 K/uL (0.01-0.20); Immature Granulocytes % (auto) 0.5 %; Mean Corpuscular Hemoglobin 29.0 pg (25.0-34.0); Mean Corpuscular Volume 88.9 fL (80.0-100.0); Platelet Count 234 K/uL (130-400); RDW Standard Deviation 49.9 fL (36.4-46.3); Red Blood Count 3.69 M/uL (4.70-6.10); White Blood Count 9.69 K/ul (4.8-10.8)
[2024-10-08 06:48] LABS: Alanine Aminotransferase < 3 U/L (7-52); Albumin Globulin Ratio 0.9 (0.9-2); Alkaline Phosphatase 59 U/L (34-104); Anion Gap 8 (3-11); Bilirubin,Total 0.6 mg/dl (0.2-1.0); Blood Urea Nitrogen 14 mg/dl (6-23); Calcium 8.5 mg/dl (8.6-10.3); Carbon Dioxide 28 mmol/L (21-32); Chloride 103 mmol/L (98-107); Creatinine Clr Calc Pharmacy 87.3 ml/min; Globulin 3.8 gm/dl (2.5-4.0); Glucose 103 mg/dl (70-99(Fasting)); Potassium 3.3 mmol/L (3.5-5.1); Sodium 139 mmol/L (136-145); Total Protein 7.2 gm/dl (6.0-8.3)
[2024-10-08] MEDS: ENOXAPARIN INJ 40 MG/0.4 ML SYR SQ SCH (09:22)
[2024-10-08] MEDS: POTASSIUM CHLORIDE CRTAB 20 MEQ TABCR PO STA (13:20)
--- NOTE | 2024-10-08 14:02 | CT Scan Report ---
CT OF THE ABDOMEN AND PELVIS WITHOUT CONTRAST CLINICAL HISTORY: Sepsis of unknown cause. COMPARISON STUDY: No previous studies for comparison. TECHNIQUE: Axial images of the abdomen and pelvis were obtained without IV contrast. Images were revi ewed in the axial, sagittal, and coronal planes. Automated exposure control was utilized for the sari dy. A dose lowering technique was utilized adhering to the principles of ALARA. FINDINGS: Subpleural linear densities within the lower lungs favor atelectasis or scarring. No pneuma tosis, free air or portal venous gas is present. No renal, ureteral or bladder calculi are present. T he bladder is mildly distended. The prostate is enlarged, measuring 5.3 cm in transverse diameter. Th ere is moderate bilateral perinephric stranding. Evaluation of the remainder of the abdomen and pelvi s is suboptimal on unenhanced exam. Unenhanced images of the liver, spleen, adrenal glands are unrema rkable. There is pancreatic glandular atrophy. No biliary or pancreatic ductal dilatation is present. There is no evidence for a bowel obstruction. There is wall thickening of the rectum and rectosigmoi d junction with moderate perirectal and presacral stranding. No extraluminal gas is present. There ar e no fluid collections. Moderately enlarged right external iliac lymph nodes are present. Index node on image 295 measures 3.8 x 2.1 cm. There are mildly enlarged right inguinal lymph nodes. There are p rominent left external iliac lymph nodes. Several prominent right common iliac and periaortic lymph n odes are also present. No collection to suggest abscess. 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 IMPRESSION: 1. No urinary calculi or hydronephrosis. Moderate bilateral perinephric stranding, a nonspecific find ing which could be correlated with urinalysis. Mildly enlarged prostate. Mildly distended bladder. 2. Rectal wall thickening with perirectal stranding. This may represent a nonspecific proctitis. No e xtraluminal gas. No abscess. If not recently performed, a nonemergent colonoscopy is recommended to e xclude the unlikely possibility of an underlying rectal lesion. 3. Right iliac chain and inguinal lymphadenopathy. This is nonspecific however a reactive etiology is favored. A lymphoproliferative process or metastatic disease are within the differential but conside red less likely. Imaging follow-up to ensure resolution is recommended. 4. No bowel obstruction. ACT 112: Negative or not required by law. Electronically signed by: Ryan Sandoval M.D. 10/08/2024 2:00 PM
--- NOTE | 2024-10-08 14:58 | Pharmacy Report ---
Pharmacy PK ABX Note - Date of Service October 08, 2024 - Assessment and Plan Assessment 69 year old M receiving vancomycin and Zosyn for treatment of cellulitis of the right lower leg and ankle with medial ankle cutaneous ulcer. * CT showed no evidence of acute osteomyelitis or abscess. * Has been febrile since admit (tmax= 39.4 C), leukocytosis on admit but has since resolved (wbc= 9.7. today), and renal function at baseline. * Pertinent microbiologic data includes: Preliminary blood cultures x 2 drawn 10/07 are NGTD; nasal MRSA screen is negative Day # 2 of antimicrobial therapy. Plan Vancomycin * Loading dose: 2250 mg IV x 1 * Maintenance dose: 750 mg IV every 8 hours * Regimen is predicted to achieve target AUC/JOSE ROBERTO of 400-600 mg/L.hr * Random level ordered for: 10/09/24 at 1030 Zosyn 4.5gm iv q 8 hours. Pharmacy will continue to follow and will adjust dose/frequency as necessary. Thank you. Pharmacy has transitioned to AUC monitoring for vancomycin. AUC/JOSE ROBERTO is the preferred PK/PD target and is associated with decreased risk of nephrotoxicity compared to traditional trough targets.
--- NOTE | 2024-10-08 23:02 | Hospitalist Progress Note ---
Date of Service October 08, 2024 Assessment & Plan (1) Venous ulcer of right leg: (2) Peripheral vascular disease: (3) Hypertension: (4) Hyperlipidemia: (5) Diabetes mellitus, type 2: Plan Sepsis in a 69 yo male with peripheral vascular disease, diabetes mellitius 2 Will admit to medical WIll place on IV antibiotics: zosyn and vanco source appears to be wound on his right leg, however ertyhema does not appear to be severe. Concern that this lesion may be deep, ordered MRI espcially with patient's inflammatory markers being elevated. will also obtain ct abd. pelvis as not entirely convinced source is right leg. CT scan showed possible lesion of his rectum. will consult GI. Diabetes Mellitus 2: consulted glycemic control placed on carb coverage and long acting Hypertension Ordered home meds. BP appears to be elevated will monitor. Peripheral vascualr disease will continue pentoxyfylline Astham will continue LABA Admission and Anticipated Discharge Date Admission Date: October 07, 2024 Subjective 69 yo male reports no new sympotms. Physical Exam Constitutional: WD/WN, vitals as above Neck: trachea midline, no thyromegaly Respiratory: normal respiratory effort, lungs clear to auscultation Cardiovascular: RRR, no murmur, no edema Gastrointestinal (Abdomen): normal bowel sounds, soft, nontender, no hepatosplenomegaly Results & Data Results & Data Vital Signs (Past 12 Hours) Vital Signs Temp Pulse Resp BP Pulse Ox O2 Del Method 10/08/24 16:22 36.8 C 65 16 182/77 H 92 Room Air PG Care Time/CCT Total # of Minutes Spent Total Time Spent with Patient: Total time spent is greater than 50% in coordination of care (as documented) at patient's floor/unit and/or counseling patient: Coding Level of Care Code 62613 SUB INP/OBS CARE 3/50MIN Diagnoses Venous ulcer of right leg I83.019; L97.919 Peripheral vascular disease I73.9 Hypertension I10 Hyperlipidemia E78.5 Diabetes mellitus, type 2 E11.9
--- NOTE | 2024-10-09 02:52 | Magnetic Resonance Report ---
EXAM: MR lower leg RT wo con CLINICAL HISTORY: concern for osteo TECHNIQUE: Multiplanar, multiecho MRI of the right tibia and fibula was performed without intravenous contrast. Images were sent through PACs for diagnostic interpretation. COMPARISON: No previous films for comparison. FINDINGS: Bones: Normal alignment of the tibia and fibula. No fractures or dislocations. No lytic or sclerotic lesions. No bone marrow edema or contusions. Joints: Degenerative changes of the knee joint. Muscles: Abnormally high T2 and STIR signal in the scanned muscles of the leg. Tendons and Ligaments: Thickened distal Achilles tendon. Neurovascular Structures: Multiple superficial varicosities noted. Soft Tissues: Diffuse soft tissue edema is noted. IMPRESSION: 1. No abnormal signal within the scanned bones, excluding osteomyelitis. 2. Diffuse subcutaneous and muscle edema. 3. Multiple superficial varicosities noted. 4. Thickened distal Achilles tendon, suggesting tendinopathy. Electronically signed by Phil Lilly 10-09-2024 02:51 AM
[2024-10-09] MEDS: VANCOMYCIN LEVEL ONE (10:30)
--- NOTE | 2024-10-09 10:56 | Gastrointestinal Consultation ---
Date of Consultation October 09, 2024 Assessment & Plan (1) Abnormal finding on imaging: Plan Patient had imaging concerning for possible nonspecific proctitis. He has never had a colonoscopy in the past. he tells me that he is not sure he wishes to have one done. - would recommend a nonemergent colonoscopy for evaluation of imaging findings. he is not sure this is something he would want. It can be set up to be done as an outpatient if he decides to have done. Supervising Physician Co-Signing Physician Notes I personally saw and examined the patient. I have reviewed the chart and agree with the documentation provided by the TUBE BENDING MACHINE OPERATOR including discussion about the assessment, treatment and plan. Briefly, 69 year old male with a past medical history of chronic anticoagulation with Coumadin, insulin-dependent type 2 diabetes who presented to ED on 10/07/24 with complainst of fever and tachycardia. It was reported that the patient possibly had a syncopal episode as well. He is a poor historian. he was admitted for venous ulcer of right leg, PVD, HTN, Hyperlipidemia, and DM II. During his work up, he had imaging suggestive of nonspecific proctitis versus less likely rectal lesion. He denies any symptoms and he adamantly refuses doing a colonoscopy or endoscopy. At this point, we will sign off. If he changes his mind please let us know we are happy to do this outpatient. History of Present Illness Reason for Consultation: ? rectal lesion Requesting Physician: Cyrus Michel Attending Physician: Cyrus Michel History of Present Illness Patient is a 69 year old male with a past medical history of chronic anticoagulation with Coumadin, insulin-dependent type 2 diabetes who presented to ED on 10/07/24 with complainst of fever and tachycardia. It was reported that the patient possibly had a syncopal episode as well. He is a poor historian. he was admitted for venous ulcer of right leg, PVD, HTN, Hyperlipidemia, and DM II. During his work up, he had imaging suggestive of nonspecific proctitis. he tells me that bowels have been regular. no blood in the stools or melena. no abdominal pain. the rest of the GI ros are unremarkable. He reports that he has not ever had a colonoscopy. 10/08/24 wbc 9.6, hgb 10.7, hct 32.8, plts 234. Na 139. K 3.3. LFTs wnl. CRP 13.41. 8/6 INR 3.1. 10/08/24 CT 1. No urinary calculi or hydronephrosis. Moderate bilateral perinephric stranding, a nonspecific finding which could be correlated with urinalysis. Mildly enlarged prostate. Mildly distended bladder. 2. Rectal wall thickening with perirectal stranding. This may represent a nonspecific proctitis. No extraluminal gas. No abscess. If not recently performed, a nonemergent colonoscopy is recommended to exclude the unlikely possibility of an underlying rectal lesion. 3. Right iliac chain and inguinal lymphadenopathy. This is nonspecific however a reactive etiology is favored. A lymphoproliferative process or metastatic disease are within the differential but considered less likely. Imaging follow- up to ensure resolution is recommended. 4. No bowel obstruction. Allergies Allergy/AdvReac Type Severity Reaction Status Date / Time iodine Allergy Mild hives, sob Verified 10/07/24 11:43 clindamycin Allergy Unknown Unknown - Unverified 10/07/24 11:43 On file w/ [employer] paroxetine [From Paxil] Allergy Unknown Unknown - Unverified 10/07/24 11:43 On file w/ [employer] bauer Allergy Verified 10/08/24 13:45 peach Allergy Verified 10/08/24 13:45 plum Allergy Verified 10/08/24 13:45 Home Medications Medication Instructions Recorded Confirmed Type ciclesonide 160 mcg/actuation 1 puff inhalation BID 12/15/20 10/07/24 History aerosol inhaler (Alvesco) pantoprazole 40 mg tablet,delayed 40 mg PO QAM 12/15/20 10/07/24 History release pentoxifylline 400 mg 400 mg PO TID 12/15/20 10/07/24 History tablet,extended release salmeterol 50 mcg/dose blister 1 inh inhalation DAILY PRN 09/12/22 10/07/24 History powder for inhalation (Serevent Shortness Of Breath Diskus) acetaminophen 500 mg tablet 1,000 mg PO BID 10/07/24 10/07/24 History (Tylenol Extra Strength) albuterol sulfate 90 mcg/actuation 2 puff inhalation QID PRN 10/07/24 10/07/24 History aerosol inhaler Shortness Of Breath amlodipine 5 mg tablet 5 mg PO DAILY 10/07/24 10/07/24 History insulin glargine-yfgn 100 unit/mL 16 unit subcut DAILY 10/07/24 10/07/24 History (3 mL) subcutaneous pen (Semglee (insulin glargine-yfgn) Pen) insulin regular human 100 unit/mL 1 sliding scale dose subcut 10/07/24 10/07/24 History (3 mL) subcutaneous pen (Novolin R USEASDIRECTD FlexPen) mineral oil-hydrophil petrolat 1 applic topical BID 10/07/24 10/07/24 History topical ointment mirtazapine 15 mg tablet 15 mg PO HS 10/07/24 10/07/24 History sodium chloride 5 % eye drops 1 drp OPR TID 10/07/24 10/07/24 History (Carmen 128) Patient History Surgical History History of vein stripping (~1989) right LE History of right inguinal hernia repair Family History Other Family history unknown Social History Smoking Status: Former smoker Hx Alcohol Use: No Hx Substance Use: No Preferred Language: Latvian Communication Ability: Effective Java Engineer Required: No Beliefs That Will Affect Care: None marital status: Single Current Living Situation: Other Current Living Situation Comment: inmate Feels Safe at Home: Yes Assistive Devices: Denture - Upper, Denture - Lower, Glasses and Hearing Aid - Right Review of Systems Review of Systems: All systems reviewed & are unremarkable except as noted in HPI & below Physical Exam Constitutional: WD/WN, vitals as above Respiratory: normal respiratory effort, lungs clear to auscultation Cardiovascular: Rate/Rhythm: regular rate and regular rhythm Gastrointestinal (Abdomen): normal bowel sounds, soft, nontender, no hepatosplenomegaly Psychiatric: Orientation: alert and oriented x 3 Results & Data Vital Signs (Past 12 Hours) Vital Signs Temp Pulse Resp BP Pulse Ox O2 Del Method 10/09/24 07:00 98.4 F 64 16 155/76 H 95 Room Air 10/08/24 23:08 98.1 F 65 16 155/74 H 94 Room Air Coding Level of Care Code 44454 IN/OBS CONSULT LVL 4,60M Diagnoses Abnormal finding on imaging R93.89
[2024-10-09 11:20] LABS: Hematocrit (blood only) 31.0 % (42.0-52.0); Hemoglobin 10.1 g/dl (14.0-18.0); Mean Corpuscular Hemoglobin 29.2 pg (25.0-34.0); Mean Corpuscular Volume 89.6 fL (80.0-100.0); Platelet Count 199 K/uL (130-400); RDW Standard Deviation 50.2 fL (36.4-46.3); Red Blood Count 3.46 M/uL (4.70-6.10); White Blood Count 6.06 K/ul (4.8-10.8)
[2024-10-09 11:32] LABS: Anion Gap 6.0 (3-11); Blood Urea Nitrogen 14.0 mg/dl (6-23); Calcium 8.4 mg/dl (8.6-10.3); Carbon Dioxide 27.0 mmol/L (21-32); Chloride 107.0 mmol/L (98-107); Creatinine Clr Calc Pharmacy 105.2 ml/min; Glucose 195.0 mg/dl (70-99(Fasting)); Potassium 3.5 mmol/L (3.5-5.1); Sodium 140.0 mmol/L (136-145)
[2024-10-09 11:38] LABS: INR 1.5 (0.9-1.1); Prothrombin Time 15.5 Seconds (9.0-12.0)
[2024-10-09 12:37] LABS: Hemoglobin A1C 6.7 % (4.5-5.6)
[2024-10-09] MEDS: VANCOMYCIN HCL 1,500 MG in SODIUM CHLORIDE 0.9% 500 ML IV SCH (12:57)
--- NOTE | 2024-10-09 14:14 | Pharmacy Report ---
Pharmacy Glycemic Short Note 2 - Date of Service October 09, 2024 - Glycemic Short BSG Results (Last 24 hours): 10/08/24 10/08/24 10/09/24 16:27 20:42 07:37 Glucose POC Glucose 103 H 120 H 105 H 10/09/24 10/09/24 10:21 11:23 Glucose 195 H POC Glucose 158 H OUTPATIENT ANTIDIABETIC REGIMEN: * Semaglee - insulin glargine 16 units SC daily * Novolin R SSI * A1c 9.6% 02/22/21, updated A1c ordered ASSESSMENT: 10/09 * Jose Alberto received a total of 7 units of insulin yesterday, all were bolus. * Most BSGs have been below goal since admit. Fasting BSG was 105mg/dL this morning. Loosened carb ratio of bolus insulin. Has not been getting any Lantus per the parameters of the HS scale. Will continue Lantus scale incase BSG starts to rise. 10/07 * 69 yo M admitted with infection, type 2 diabetic on basal bolus insulin, incarcerated at [facility]. * Will begin basal bolus insulin as inpatient and adjust as needed. PLAN FOR INPATIENT GLYCEMIC CONTROL: * Hold outpatient diabetes medications * Basal insulin * Lantus scale at HS (0,8 or 16 units depending on BSG) * Bolus insulin * NovoLog per scale ACHS or Q6hrs while NPO * Goal Range: Low 110 mg/dL - High 140 mg/dL * Correction Factor: 35mg/dL/unit * Nutritional / Prandial insulin per carb ratio of 1 unit per 12 grams CHO consumed
--- NOTE | 2024-10-09 14:34 | Pharmacy Report ---
Pharmacy PK ABX Note - Date of Service October 09, 2024 - Assessment and Plan Assessment 10/09: Vancomycin level drawn today was 11.5mcg/mL which extrapolates to an AUC below the target range. The vancomycin dose was adjusted starting at 1200 today. * Blood cultures from 10/07 still remain NG. * Has been afebrile for ~24 hours and renal function remains fairly stable. 10/08: 69 year old M receiving vancomycin and Zosyn for treatment of cellulitis of the right lower leg and ankle with medial ankle cutaneous ulcer. * CT showed no evidence of acute osteomyelitis or abscess. * Has been febrile since admit (tmax= 39.4 C), leukocytosis on admit but has since resolved (wbc= 9.7. today), and renal function at baseline. * Pertinent microbiologic data includes: Preliminary blood cultures x 2 drawn 10/07 are NGTD; nasal MRSA screen is negative Day # 3 of antimicrobial therapy. Plan Vancomycin * Vancomycin level drawn today was 11.5mcg/ml which extrapolates to an AUC below the target range. * Increase maintenance dose to: 1500mg iv q 12 hours * Regimen is predicted to achieve target AUC/JOSE ROBERTO of 400-600 mg/L.hr * Random level ordered for: 10/11/24 at 1130 Zosyn 4.5gm iv q 8 hours. Pharmacy will continue to follow and will adjust dose/frequency as necessary. Thank you. Pharmacy has transitioned to AUC monitoring for vancomycin. AUC/JOSE ROBERTO is the preferred PK/PD target and is associated with decreased risk of nephrotoxicity compared to traditional trough targets.
[2024-10-09] MEDS: WARFARIN SOD 10 MG TAB PO SCH (16:48)
[2024-10-09] MEDS: WARFARIN SOD 0.5 MG TAB PO SCH (16:49)
[2024-10-09] MEDS: WARFARIN SOD 3 MG TAB PO SCH (16:49)
--- NOTE | 2024-10-09 23:26 | Hospitalist Progress Note ---
Date of Service October 09, 2024 Assessment & Plan (1) Venous ulcer of right leg: (2) Peripheral vascular disease: (3) Hypertension: (4) Hyperlipidemia: (5) Diabetes mellitus, type 2: Plan Sepsis in a 69 yo male with peripheral vascular disease, diabetes mellitius 2 Will remain on medical WIll continue IV zosyn and vanco source appears to be wound on his right leg, however erythema does not appear to be severe. Concern that this lesion may be deep, ordered MRI espcially with patient's inflammatory markers being elevated. MRI does not show osteomylelitis will also obtain ct abd. pelvis as not entirely convinced source is right leg. CT scan showed possible lesion of his rectum but patient is refusing colonoscopy Appreciate input from GI will consult GI. Diabetes Mellitus 2: consulted glycemic control placed on carb coverage and long acting Hypertension Ordered home meds. BP appears to be elevated will monitor. Peripheral vascualr disease will continue pentoxyfylline Asthma will continue LABA . History of DVT: on coumadin 13.5 mg daily. will monitor PT Admission and Anticipated Discharge Date Admission Date: October 07, 2024 Subjective Patient reports no new symptoms. Patient reports feeling better. Physical Exam Constitutional: WD/WN, vitals as above Eyes: PERRL, conjunctivae normal, anicteric sclerae ENMT: external ear and nose normal, oropharynx normal Neck: trachea midline, no thyromegaly Respiratory: normal respiratory effort, lungs clear to auscultation Cardiovascular: RRR, no murmur, no edema Gastrointestinal (Abdomen): normal bowel sounds, soft, nontender, no hepatosplenomegaly Musculoskeletal: no cyanosis or clubbing, extremities motor strength 5/5 Skin: + skin tightening and + wound (right low er leg, with skin changes.) Neurologic: PERRL, EOMI, accommodation nl, no face palsy, no dysarthria Psychiatric: A+Ox3, euthymic affect Lymphatic: no cervical or axillary lymphadenopathy Results & Data Results & Data Vital Signs (Past 12 Hours) Vital Signs Temp Pulse Resp BP Pulse Ox O2 Del Method 10/09/24 20:43 36.7 C 59 L 16 158/82 H 94 Room Air 10/09/24 16:32 36.8 C 64 16 154/78 H 95 Room Air PG Care Time/CCT Total # of Minutes Spent Total Time Spent with Patient: Total time spent is greater than 50% in coordination of care (as documented) at patient's floor/unit and/or counseling patient: Coding Level of Care Code 83705 SUB INP/OBS CARE 350MIN Diagnoses Venous ulcer of right leg I83.019; L97.919 Peripheral vascular disease I73.9 Hypertension I10 Hyperlipidemia E78.5 Diabetes mellitus, type 2 E11.9
[2024-10-10 06:15] LABS: Hematocrit (blood only) 33.9 % (42.0-52.0); Hemoglobin 10.8 g/dl (14.0-18.0); Immature Granulocytes # (auto) 0.02 K/uL (0.01-0.20); Immature Granulocytes % (auto) 0.3 %; Mean Corpuscular Hemoglobin 28.4 pg (25.0-34.0); Mean Corpuscular Volume 89.2 fL (80.0-100.0); Platelet Count 228 K/uL (130-400); RDW Standard Deviation 50.4 fL (36.4-46.3); Red Blood Count 3.80 M/uL (4.70-6.10); White Blood Count 7.35 K/ul (4.8-10.8)
[2024-10-10 06:39] LABS: Anion Gap 8.0 (3-11); Blood Urea Nitrogen 11.0 mg/dl (6-23); Calcium 8.7 mg/dl (8.6-10.3); Carbon Dioxide 28.0 mmol/L (21-32); Chloride 107.0 mmol/L (98-107); Creatinine Clr Calc Pharmacy 110.2 ml/min; Glucose 111.0 mg/dl (70-99(Fasting)); Potassium 3.6 mmol/L (3.5-5.1); Sodium 143.0 mmol/L (136-145)
[2024-10-10 06:55] LABS: INR 1.2 (0.9-1.1); Prothrombin Time 13.3 Seconds (9.0-12.0)
--- NOTE | 2024-10-10 17:35 | Hospitalist Progress Note ---
Date of Service October 10, 2024 Assessment & Plan (1) Venous ulcer of right leg: (2) Peripheral vascular disease: (3) Hypertension: (4) Hyperlipidemia: (5) Diabetes mellitus, type 2: Plan Sepsis in a 69 yo male with peripheral vascular disease, diabetes mellitus 2 Will remain on medical Will continue IV zosyn and vanco source appears to be wound on his right leg, however erythema does not appear to be severe. Concern that this lesion may be deep, ordered MRI espcially with patient's inflammatory markers being elevated. MRI does not show osteomylelitis will also obtain ct abd. pelvis as not entirely convinced source is right leg. CT scan showed possible lesion of his rectum but patient is refusing colonoscopy Appreciate input from GI appreciate wound care input, will consult podiatry for possible debridement. Diabetes Mellitus 2: consulted glycemic control placed on carb coverage and long acting Hypertension Ordered home meds. BP appears to be elevated will monitor. Peripheral vascualr disease will continue pentoxyfylline Asthma will continue LABA . History of DVT: on coumadin 13.5 mg daily. will monitor PT Admission and Anticipated Discharge Date Admission Date: October 07, 2024 Subjective 69 yo male reports no new symptoms. Physical Exam Constitutional: WD/WN, vitals as above Eyes: PERRL, conjunctivae normal, anicteric sclerae ENMT: external ear and nose normal, oropharynx normal Neck: trachea midline, no thyromegaly Respiratory: normal respiratory effort, lungs clear to auscultation Cardiovascular: RRR, no murmur, no edema Gastrointestinal (Abdomen): normal bowel sounds, soft, nontender, no hepatosplenomegaly Musculoskeletal: no cyanosis or clubbing, extremities motor strength 5/5 Skin: + skin tightening and + wound (right low er leg, with skin changes.) Neurologic: PERRL, EOMI, accommodation nl, no face palsy, no dysarthria Psychiatric: A+Ox3, euthymic affect Lymphatic: no cervical or axillary lymphadenopathy Results & Data Results & Data Vital Signs (Past 12 Hours) Vital Signs Temp Pulse Resp BP Pulse Ox O2 Del Method 10/10/24 16:57 36.8 C 63 18 152/80 H 91 Room Air 10/10/24 09:01 36.7 C 55 L 18 161/72 H 95 Room Air 10/10/24 08:00 Room Air PG Care Time/CCT Total # of Minutes Spent Total Time Spent with Patient: Total time spent is greater than 50% in coordination of care (as documented) at patient's floor/unit and/or counseling patient: Coding Level of Care Code 83178 SUB INP/OBS CARE 3/50MIN Diagnoses Venous ulcer of right leg I83.019; L97.919 Peripheral vascular disease I73.9 Hypertension I10 Hyperlipidemia E78.5 Diabetes mellitus, type 2 E11.9
[2024-10-11 06:18] LABS: Hematocrit (blood only) 37.2 % (42.0-52.0); Hemoglobin 12.3 g/dl (14.0-18.0); Mean Corpuscular Hemoglobin 29.6 pg (25.0-34.0); Mean Corpuscular Volume 89.4 fL (80.0-100.0); Platelet Count 273 K/uL (130-400); RDW Standard Deviation 49.7 fL (36.4-46.3); Red Blood Count 4.16 M/uL (4.70-6.10); White Blood Count 6.81 K/ul (4.8-10.8)
[2024-10-11 06:41] LABS: INR 1.3 (0.9-1.1); Prothrombin Time 13.8 Seconds (9.0-12.0)
[2024-10-11 06:51] LABS: Anion Gap 8.0 (3-11); Blood Urea Nitrogen 11.0 mg/dl (6-23); Calcium 9.2 mg/dl (8.6-10.3); Carbon Dioxide 30.0 mmol/L (21-32); Chloride 105.0 mmol/L (98-107); Creatinine Clr Calc Pharmacy 105.2 ml/min; Glucose 115.0 mg/dl (70-99(Fasting)); Potassium 3.5 mmol/L (3.5-5.1); Sodium 143.0 mmol/L (136-145)
[2024-10-11] MEDS: VANCOMYCIN LEVEL ONE (14:04)
--- NOTE | 2024-10-11 16:21 | Hospitalist Progress Note ---
Date of Service October 11, 2024 Assessment & Plan (1) Venous ulcer of right leg: (2) Peripheral vascular disease: (3) Hypertension: (4) Hyperlipidemia: (5) Diabetes mellitus, type 2: Plan Sepsis in a 69 yo male with peripheral vascular disease, diabetes mellitus 2 Will remain on medical Will continue IV zosyn and vanco source appears to be wound on his right leg, however erythema does not appear to be severe. Tigtness of leg has improved. MRI does not show osteomylelitis will also obtain ct abd. pelvis as not entirely convinced source is right leg. CT scan showed possible lesion of his rectum but patient is refusing colonoscopy Appreciate input from GI appreciate wound care input, will consult podiatry for possible debridement tomorrow. Diabetes Mellitus 2: consulted glycemic control placed on carb coverage and long acting Hypertension Ordered home meds. BP appears to be elevated will monitor. Peripheral vascualr disease will continue pentoxyfylline Asthma will continue LABA . History of DVT: on coumadin 13.5 mg daily. will monitor PT Admission and Anticipated Discharge Date Admission Date: October 07, 2024 Subjective Patient reports no new symptoms. Physical Exam Constitutional: WD/WN, vitals as above Eyes: PERRL, conjunctivae normal, anicteric sclerae ENMT: external ear and nose normal, oropharynx normal Neck: trachea midline, no thyromegaly Respiratory: normal respiratory effort, lungs clear to auscultation Cardiovascular: RRR, no murmur, no edema Gastrointestinal (Abdomen): normal bowel sounds, soft, nontender, no hepatosplenomegaly Musculoskeletal: no cyanosis or clubbing, extremities motor strength 5/5 Skin: + skin tightening and + wound (right low er leg, with skin changes.) decreased swelling, leg is less firm. wound appears better. Neurologic: PERRL, EOMI, accommodation nl, no face palsy, no dysarthria Psychiatric: A+Ox3, euthymic affect Lymphatic: no cervical or axillary lymphadenopathy Results & Data Results & Data Vital Signs (Past 12 Hours) Vital Signs Temp Pulse Resp BP Pulse Ox O2 Del Method 10/11/24 14:24 36.7 C 63 16 152/69 H 97 Room Air 10/11/24 08:44 36.7 C 75 18 166/74 H 96 Room Air PG Care Time/CCT Total # of Minutes Spent Total Time Spent with Patient: Total time spent is greater than 50% in coordination of care (as documented) at patient's floor/unit and/or counseling patient: Coding Level of Care Code 55452 SUB INP/OBS CARE MIN Diagnoses Venous ulcer of right leg I83.019; L97.919 Peripheral vascular disease I73.9 Hypertension I10 Hyperlipidemia E78.5 Diabetes mellitus, type 2 E11.9
--- NOTE | 2024-10-11 16:53 | Pharmacy Report ---
Pharmacy PK ABX Note - Date of Service October 11, 2024 - Assessment and Plan Assessment 10/11 Vancomycin level drawn today 15.2 mcg/mL which suggests therapeutic dosing. Will continue with current dose 10/09: Vancomycin level drawn today was 11.5mcg/mL which extrapolates to an AUC below the target range. The vancomycin dose was adjusted starting at 1200 today. * Blood cultures from 10/07 still remain NG. * Has been afebrile for ~24 hours and renal function remains fairly stable. 10/08: 69 year old M receiving vancomycin and Zosyn for treatment of cellulitis of the right lower leg and ankle with medial ankle cutaneous ulcer. * CT showed no evidence of acute osteomyelitis or abscess. * Has been febrile since admit (tmax= 39.4 C), leukocytosis on admit but has since resolved (wbc= 9.7. today), and renal function at baseline. * Pertinent microbiologic data includes: Preliminary blood cultures x 2 drawn 10/07 are NGTD; nasal MRSA screen is negative Day # 3 of antimicrobial therapy. Plan Vancomycin * Vancomycin level drawn today was 15.2 mcg/ml which correlates with achievement of target AUC/JOSE ROBERTO * Continue maintenance dose: 1500mg iv q 12 hours * Regimen is predicted to achieve target AUC/JOSE ROBERTO of 400-600 mg/L.hr * Random level in 2-3 days or as needed with renal function changes Zosyn 4.5gm iv q 8 hours. Pharmacy will continue to follow and will adjust dose/frequency as necessary. Thank you. Pharmacy has transitioned to AUC monitoring for vancomycin. AUC/JOSE ROBERTO is the preferred PK/PD target and is associated with decreased risk of nephrotoxicity compared to traditional trough targets.
[2024-10-12 07:26] VITALS: PULSE 65; RESP 16
[2024-10-12 10:18] LABS: Hematocrit (blood only) 32.6 % (42.0-52.0); Hemoglobin 10.4 g/dl (14.0-18.0); Mean Corpuscular Hemoglobin 28.6 pg (25.0-34.0); Mean Corpuscular Volume 89.6 fL (80.0-100.0); Platelet Count 220 K/uL (130-400); RDW Standard Deviation 50.4 fL (36.4-46.3); Red Blood Count 3.64 M/uL (4.70-6.10); White Blood Count 5.40 K/ul (4.8-10.8)
[2024-10-12 10:29] LABS: Anion Gap 5.0 (3-11); Blood Urea Nitrogen 13.0 mg/dl (6-23); Calcium 8.8 mg/dl (8.6-10.3); Carbon Dioxide 29.0 mmol/L (21-32); Chloride 107.0 mmol/L (98-107); Creatinine Clr Calc Pharmacy 99.5 ml/min; Glucose 200.0 mg/dl (70-99(Fasting)); Potassium 3.6 mmol/L (3.5-5.1); Sodium 141.0 mmol/L (136-145)
--- NOTE | 2024-10-12 10:35 | Pharmacy Report ---
Pharmacy Glycemic Short Note 2 - Date of Service October 12, 2024 - Glycemic Short BSG Results (Last 24 hours): 10/11/24 10/11/24 10/11/24 11:52 16:43 20:28 Glucose POC Glucose 129 H 96 109 H 10/12/24 10/12/24 07:14 09:37 Glucose 200 H POC Glucose 111 H OUTPATIENT ANTIDIABETIC REGIMEN: * Semaglee - insulin glargine 16 units SC daily * Novolin R SSI * A1c 9.6% 02/22/21, updated A1c ordered ASSESSMENT: 10/12 * Patient received 6 units of insulin yesterday, all bolus * BSGs within goal range - no change today 10/09 * Jose Alberto received a total of 7 units of insulin yesterday, all were bolus. * Most BSGs have been below goal since admit. Fasting BSG was 105mg/dL this morning. Loosened carb ratio of bolus insulin. Has not been getting any Lantus per the parameters of the HS scale. Will continue Lantus scale incase BSG starts to rise. 10/07 * 69 yo M admitted with infection, type 2 diabetic on basal bolus insulin, incarcerated at [facility]. * Will begin basal bolus insulin as inpatient and adjust as needed. PLAN FOR INPATIENT GLYCEMIC CONTROL: * Hold outpatient diabetes medications * Basal insulin * hold * Bolus insulin * NovoLog per scale ACHS or Q6hrs while NPO * Goal Range: Low 110 mg/dL - High 140 mg/dL * Correction Factor: 35mg/dL/unit * Nutritional / Prandial insulin per carb ratio of 1 unit per 20 grams CHO consumed
[2024-10-12 10:59] LABS: INR 1.9 (0.9-1.1); Prothrombin Time 19.1 Seconds (9.0-12.0)
--- NOTE | 2024-10-12 11:54 | Podiatry Consultation ---
Date of Consultation October 12, 2024 Assessment & Plan (1) Venous stasis ulcer: Venous stasis ulcer site: ankle Varicose vein presence: with varicose veins Laterality: right Non-pressure ulcer stage: with fat layer exposed Qualified Code(s): I83.013 - Varicose veins of right lower extremity with ulcer of ankle; L97.312 - Non-pressure chronic ulcer of right ankle with fat layer exposed (2) Venous ulcer of right leg: (3) Peripheral vascular disease: (4) Cellulitis of right lower extremity: Plan Venous stasis ulcer right medial ankle, cellulitis right leg - Order placed for AARON study of the right lower extremity. - Wound care consult for multilayer compression wrap on the right lower extremity. Continue to cleanse wounds with saline dry and dressed with Aquacel Ag and multilayer compression wrap 20 to 30 mmHg right lower extremity every other day. -Continue to elevate bilateral lower extremity on pillows while at rest and avoid extended periods of time with feet in dependent position. - Order wound culture swab right medial ankle wound. Continues empiric IV vancomycin and Zosyn. Following discharge patient would benefit from follow-up in the wound care center for ongoing evaluation of the right medial ankle wound, follow-up on lower extremity compression therapy and referral to diabetic foot clinic for 07/2025 shoe gear. Selective Debridement: Indication:Removal of nonviable tissue to promote healing Pre-op diagnosis: Right medial ankle wound Post-op diagnosis: Same Procedure: Selective debridement right medial ankle wound Surgeon: Sekou Maradiaga DPM Anesthesia: None Bleeding:Minimal Disposition: Tolerated well Procedure: Informed consent obtained, Time Out taken. Patient understands and agrees to procedure. Selective debridement was carried out of right medial ankle wound consisting of slough and fibrotic tissue was carried out utilizing a curette and 15 blade. Anesthesia-none. Patient tolerated the procedure well. Bleeding-minimal. Controlled with-direct pressure. Post-debridement measurements: 7.7 x 5.8 x 0.3 cm. A total of 25.0 cm2 were debrided. Postdebridement measurements represent cluster of wounds together however not all surface areas require debridement which led to a total of 25 cm of debrided wound bed. History of Present Illness Reason for Consultation: Venous insufficiency with chronic venous stasis ulcer to the right medial ankle and cellulitis of the right leg. Attending Physician: Cyrus A Saborio History of Present Illness 69-year-old male inmate of [facility] with past medical history significant for type 2 diabetes, hypertension, peripheral vascular disease, chronic venous insufficiency, chronic venous stasis ulceration to the right medial ankle and recent development of cellulitis to the right leg. Patient has a longstanding history of chronic venous stasis ulceration to the right medial ankle. Reports ulceration at some level to the right medial ankle since 2010. He has been followed by vascular surgery over the years with recent visit 10/01/[address] Beckham. Recommendation at time of that visit was to dress wounds with Aquacel and Son bandage until 20 to 30 mmHg compression stockings available. Patient reports developing increased redness swelling and pain to the right leg prompting transport to the emergency department from [facility] on 10/07/2024. Since time of admission the wounds have been dressed with Aquacel Ag and a dry sterile dressing with noted improvement to the right medial ankle wound. Resolving cellulitis to the right leg. Patient reports significant reduction in pain to the right leg. MRI right lower extremity 10/09/2024 with no signs of osteomyelitis, diffuse subcutaneous and muscular edema, multiple superficial varicosities and thickening of the Achilles tendon noted. He continues IV vancomycin and Zosyn. Resting comfortably in hospital bed with 2 guards at bedside today. Allergies Allergy/AdvReac Type Severity Reaction Status Date / Time iodine Allergy Mild hives, sob Verified 10/07/24 11:43 clindamycin Allergy Unknown Unknown - Unverified 10/07/24 11:43 On file w/ [facility] paroxetine [From Paxil] Allergy Unknown Unknown - Unverified 10/07/24 11:43 On file w/ [facility] bauer Allergy Verified 10/08/24 13:45 peach Allergy Verified 10/08/24 13:45 plum Allergy Verified 10/08/24 13:45 Home Medications Medication Instructions Recorded Confirmed Type ciclesonide 160 mcg/actuation 1 puff inhalation BID 12/15/20 10/07/24 History aerosol inhaler (Alvesco) pantoprazole 40 mg tablet,delayed 40 mg PO QAM 12/15/20 10/07/24 History release pentoxifylline 400 mg 400 mg PO TID 12/15/20 10/07/24 History tablet,extended release salmeterol 50 mcg/dose blister 1 inh inhalation DAILY PRN 09/12/22 10/07/24 History powder for inhalation (Serevent Shortness Of Breath Diskus) acetaminophen 500 mg tablet 1,000 mg PO BID 10/07/24 10/07/24 History (Tylenol Extra Strength) albuterol sulfate 90 mcg/actuation 2 puff inhalation QID PRN 10/07/24 10/07/24 History aerosol inhaler Shortness Of Breath amlodipine 5 mg tablet 5 mg PO DAILY 10/07/24 10/07/24 History insulin glargine-yfgn 100 unit/mL 16 unit subcut DAILY 10/07/24 10/07/24 History (3 mL) subcutaneous pen (Semglee (insulin glargine-yfgn) Pen) insulin regular human 100 unit/mL 1 sliding scale dose subcut 10/07/24 10/07/24 History (3 mL) subcutaneous pen (Novolin R USEASDIRECTD FlexPen) mineral oil-hydrophil petrolat 1 applic topical BID 10/07/24 10/07/24 History topical ointment mirtazapine 15 mg tablet 15 mg PO HS 10/07/24 10/07/24 History sodium chloride 5 % eye drops 1 drp OPR TID 10/07/24 10/07/24 History (Carmen 128) Patient History Surgical History History of vein stripping (~1989) right LE History of right inguinal hernia repair Family History Other Family history unknown Social History Smoking Status: Former smoker Hx Alcohol Use: No Hx Substance Use: No Preferred Language: Mosotho Communication Ability: Effective Mixed Liv[employer] Worker Required: No Beliefs That Will Affect Care: None marital status: Single Current Living Situation: Other Current Living Situation Comment: inmate Feels Safe at Home: Yes Assistive Devices: Denture - Upper, Denture - Lower, Glasses and Hearing Aid - Right Review of Systems Review of Systems: Denies nausea, vomiting, fever, chills. Denies shortness of breath or chest pain. Reports nearly resolved discomfort to the right leg since time of admiss ion. No pain with dressing change or wound debridement. Physical Exam Physical Exam: Const: Appears well developed and well nourished. No signs of acute distress present. CV: Extremities: No cyanosis or edema. Capillary refill time is less than 2 seconds all digits of the bilateral foot. Posterior tibial and dorsalis pedis pulses are palpable bilateral. Lymph: No palpable or visible regional lymphadenopathy. Skin: Loss of hair growth to the distal leg and foot bilateral. Chronic venous stasis changes bilateral lower extremity right greater than left. Induration of the skin to the right distal leg. Venous stasis ulceration as detailed in right lower extremity exam below. Neuro: Loss of protective sensation bilateral foot extending to the ankle. Psych: Mood/Affect: Mood is normal. Affect is normal. Cognition: Orientation is intact to person, place and time. Focused lower extremity musculoskeletal exam: Leg: No pain with compression of the calf muscle. Persistent erythema and edema to the right leg below the knee. Feet: Normal to inspection and palpation. No obvious instability. Motor strength is intact. Range of motion pain-free and unlimited. Interdigital spaces have dried with the treatment of Aquacel Ag and there is no signs of open wound bilateral to the toes or forefoot. Hyperkeratotic tissue buildup subfifth metatarsal head bilateral. Right lower extremity: Patient has full-thickness venous stasis ulceration of the medial aspect of the right ankle with multiple small satellite wounds. Measured as a cluster of wounds measure 7.7 x 5.8 x 0.3 cm. Wound bed is mixed fibrous and granular tissue with overlying slough to all areas. There is pe riwound erythema and edema extending to the level of the proximal calf. Induration of the skin noted to the distal leg and medial ankle. No pain to palpation of the wound. There is no deep extension, exposure of the soft tissue structures or undermining or tracking to the wound. No active drainage. Results & Data Vital Signs (Past 12 Hours) Vital Signs Temp Pulse Resp BP Pulse Ox O2 Del Method 10/12/24 07:15 36.8 C 65 16 165/82 H 94 Room Air PG Care Time/CCT Total # of Minutes Spent Total Time Spent with Patient: Total time spent is greater than 50% in coordination of care (as documented) at patient's floor/unit and/or counseling patient: Coding Level of Care Code 16526 INT INP/OBS CARE 2/55MIN Diagnoses Venous stasis ulcer of right ankle with fat layer exposed with varicose veins I83.013; L97.312 Venous stasis ulcer site: ankle Varicose vein presence: with varicose veins Laterality: right Non-pressure ulcer stage: with fat layer exposed Venous ulcer of right leg I83.019; L97.919 Peripheral vascular disease I73.9 Cellulitis of right lower extremity L03.115 CPT Codes DBRDMT OPN WND 1ST 20 CM/< - [id number] ([id number])
--- NOTE | 2024-10-12 15:12 | Discharge Summary ---
Discharge Summary Date of Service October 12, 2024 Principal Dx & Hospital Course #1 = Principal Diagnosis (1) Venous ulcer of right leg: (2) Peripheral vascular disease: (3) Hypertension: (4) Hyperlipidemia: (5) Diabetes mellitus, type 2: Plan Sepsis in a 69 yo male with peripheral vascular disease, diabetes mellitus 2 Source likely soft tissue on his right lower leg wound. Patient was treated with zosyn and vancomycin. On day of discharge, patient's wound have been debrided. Culture obtained and is currently pending. However patient has shown improvement, his leg is less firm with decreased erythema. will continue patient on bactrim and kephlex. MRI ddid not show osteomylelitis Gave sign out to Doc from facilty Dr. Ridley. DIscharge wound dressing instructions noted below. CT scan of abd. pelvis showed possible lesion of his rectum but patient is refusing colonoscopy Diabetes Mellitus 2: resume outpatient management. Hypertension resume home meds Peripheral vascualr disease will continue pentoxyfylline Asthma will continue LABA . History of DVT: on coumadin 13.5 mg daily. Admission HPI Per Admitting Provider Patient is a 69 yo male with past medical history of chronic anticoagulation, type 2 diabetes. Patient is a poor historian. Patient reports while he was getting his blood sugar checked, he had a syncopal episode. Patient reports symptoms of generalized malaise. Patient denies have fever, chills. Denies any SOB, abdominal pain, nausea and vomiting. Patient was then placed in a wheel chair and brought to the hospital. Discharge Exam Constitutional WD/WN, vitals as above Eyes PERRL, conjunctivae normal, anicteric sclerae ENMT external ear and nose normal, oropharynx normal Neck trachea midline, no thyromegaly Respiratory normal respiratory effort, lungs clear to auscultation Cardiovascular RRR, no murmur, no edema Gastrointestinal (Abdomen) normal bowel sounds, soft, nontender, no hepatosplenomegaly Musculoskeletal no cyanosis or clubbing, extremities motor strength 5/5 Skin + wound (right lower leg, with skin changes.); no skin tightening Neurologic PERRL, EOMI, accommodation nl, no face palsy, no dysarthria Psychiatric A+Ox3, euthymic affect Lymphatic no cervical or axillary lymphadenopathy Discharge Plan Discharge Items [facility] Reason For Visit: CELLULITIS RIGHT/WOUND Discharge Diagnosis: cellulitis right wound Condition on Discharge: Fair Activity: Resume your previous activity Non-emergency contact: Primary Care Provider Call non-emergency contact if: you have any medication questions Follow-up/Referrals: Mi JIANG [Primary Care Provider] - Diet: Carb Consistent or DM2 Addtl Attending Provider Instructions: Right ankle wound looks stable. Recommend continue dressing changes every other day with aqua AG and multilayer compression wraps. Recommend schedule to follow up in the wound center for follow up evaluation within two weeks. Please consider treating with bactrim and keflex for an additional 8 more days. Bactrim interacts with warfarin. Will likely need to hold or cut back warfarin at the least while on bactrim. May be easier to use lovenox during this period of time vs daily INR. Pending Studies at Discharge: No Stand-Alone Forms: [facility] [employer] Sk[employer] Items Patient informed of condition?: Yes Discharge Level of Care: Other Communicable Disease: Yes Discharge Prognosis: Stable Lines: None Urinary Catheter: No Medications and DC Order Prescriptions: New cephalexin 500 mg capsule 500 mg PO BID 8 Days Qty: 16 0RF sulfamethoxazole-trimethoprim [Bactrim DS] 800-160 mg tablet 1 tab PO BID 8 Days Qty: 16 0RF Continued Serevent Diskus 50 mcg/dose blister with device 1 inh inhalation DAILY PRN (Reason: Shortness Of Breath) pentoxifylline 400 mg Tablet Extended Release 400 mg PO TID pantoprazole 40 mg Tablet,Delayed Release (Dr/Ec) 40 mg PO QAM Alvesco 160 mcg/actuation Hfa Aerosol Inhaler 1 puff INHALATION BID sodium chloride [Carmen 128] 5 % Drops 1 drp OPR TID mineral oil-hydrophil petrolat Ointment 1 applic TOPICAL BID amlodipine 5 mg Tablet 5 mg PO DAILY mirtazapine 15 mg Tablet 15 mg PO HS albuterol sulfate 90 mcg/actuation Hfa Aerosol Inhaler 2 puff INHALATION QID PRN (Reason: Shortness Of Breath) Novolin R FlexPen 100 unit/mL (3 mL) Insulin Pen 1 sliding scale dose SUBCUT USEASDIRECTD Rx Instructions: Three times daily w/ meals insulin glargine-yfgn [Semglee(insulin glarg-yfgn)Pen] 100 unit/mL (3 mL) Insulin Pen 16 unit SUBCUT DAILY acetaminophen [Tylenol Extra Strength] 500 mg tablet 1,000 mg PO BID Discharge Orders: Discharge Order (Routine); Ordered 10/12/24 Ordered By: Cyrus Tucker/Other Patient Handouts: Nutrition for Wound Healing Admission Data Admit Date/Time: 10/07/24 13:04 Attending Provider: Cyrus Michel Admit Provider: Cyrus Michel Primary Care Provider: Mi JIANG Other Providers: Cyrus Michel; Oneal Major; Sekou Maradiaga Other Interventions: Discharge Summary Assessment (RN) Last Done: 10/12/24 18:03 Hospital Stay Data Consultations 10/07/24 13:08 ED Decision to Admit Stat 10/08/24 17:18 Consult Gastroenterology Routine 10/12/24 07:02 Consult Podiatry Routine Diagnostic Imagining Performed 10/07/24 10:53 CT foot RT w con Stat CT leg [CT tib/fib RT w con] Stat 10/08/24 12:37 CT Abd and Pelvis [CT abd pelvis wo con] Urgent 10/09/24 00:01 MR lower leg RT wo con Routine 10/12/24 11:59 US ankle brachial index [US ankle/brachial index ltd] Routine Pending Results Patient Have Any Pending Studies at Discharge: No Discharge Instructions Given to Patient (Per Discharging Provider) Right ankle wound looks stable. Recommend continue dressing changes every other day with aqua AG and multilayer compression wraps. Recommend schedule to follow up in the wound center for follow up evaluation within two weeks. Please consider treating with bactrim and keflex for an additional 8 more days. Bactrim interacts with warfarin. Will likely need to hold or cut back warfarin at the least while on bactrim. May be easier to use lovenox during this period of time vs daily INR. Total Time Total Time Spent Total Time Spent (In Minutes): 35 Coding Level of Care Code 57311 INP/OBS DISCH >30 MIN Diagnoses Venous ulcer of right leg I83.019; L97.919 Peripheral vascular disease I73.9 Hypertension I10 Hyperlipidemia E78.5 Diabetes mellitus, type 2 E11.9
[2024-10-12 15:57] VITALS: BP 169/84; TEMP 98.4; O2SAT 96
--- NOTE | 2024-10-13 13:40 | Coding Query ---
DEBRIDEMENT DOCUMENTATION To promote full compliance with coding requirements relating to patient care, physician participation is requested in all cases of cutting inspector uncertainty. Please assist us with the question(s) below: Please place an X in the parenthesis (x). If other, please document the finding: Type of Debridement: ( ) Excisional Debridement- Cutting away necrotic, devitalized tissue or slough to the level of viable tissue using a sharp instrument (i.e. scalpel, scissors, etc.) ( ) Non Excisional Debridement- The removal of necrotic, devitalized tissue or slough by means of scraping, mechanical brushing, flushing, or washing (i.e. irrigation,whirlpool);minor removal of loose fragments. ( ) Other (please specify): Instrument Used: ( ) Scissors ( ) Scalpel ( ) Curette ( ) Other (please specify): Depth of Debridement: ( ) Skin ( ) Skin and Subcutaneous Tissue ( ) Skin, Subcutaneous Tissue and Muscle ( ) Skin, Subcutaneous Tissue, Muscle and Bone ( ) Other (please specify): Please Specify the Size of Debridement in cm2: Thank you YANELIS Jauregui CCS Debridement documentation as detailed in consultation note. Thank you, Sekou NEWELL
== END 2024-10-12 19:49 | DRG 854 ==
LOC: ED 08:58 → 3E 13:04